=== PATIENT | male | born 1965 | race Caucasian/White ===

== ENCOUNTER 2019-03-15 12:22 | Outpatient (CLI) | payer MEDICAID, SELFPAY ==
[2019-03-15 14:52] LABS: ALT 120 U/L (12-78); AST 169 U/L (15-37); Albumin 3.7 g/dL (3.4-5.0); Alkaline Phosphatase 180 U/L (46-116); Anion Gap 13.1 mmol/L (3-11); BUN 7 mg/dL (7-18); Bilirubin, Total 3.7 mg/dL (0.2-1.0); CO2 24.9 mmol/L (21.0-32.0); CREATININE 0.85 mg/dL (0.70-1.30); Calcium 9.4 mg/dL (8.5-10.1); Chloride 100 mmol/L (98-107); Glucose 100 mg/dL (70-100); Potassium 3.7 mmol/L (3.5-5.1); Sodium 138 mmol/L (136-145)
== END 2019-03-15 12:42 ==
PROVIDERS: PCP Nurse Practitioner; Visit Provider Nurse Practitioner
DX: B19.20 Unspecified viral hepatitis C without hepatic coma (principal)
CPT/HCPCS: 36415; 80053

== ENCOUNTER 2019-12-21 20:16 | Inpatient (IN) | payer MEDICAID, SELFPAY ==
[2019-12-21] VITALS (14 sets, daily range): BP systolic 106–149; BP diastolic 66–79; PULSE 63–81; RESP 20; TEMP 37; O2SAT 93–100
--- NOTE | 2019-12-21 20:32 | ED.GENADUL_ITS ---
Discharge Plan Disposition Patient Disposition: [facility] INPATIENT Condition: Poor Discharge Details Chief Complaint: Nausea/Vomit/Diar Clinical Impression: Alcohol intoxication, Alcoholic, Abdominal pain, Multifocal lung consolidation Primary Care Provider: Cony Coleman ED Provider: Dillon Jimenez [place] Meds and New Rx's Prescriptions: No Action sildenafil [Viagra] 100 mg tablet 100 mg PO DAILY PRNRF: 0 vitamin B complex capsule 1 cap PO DAILY RF: 0 omega-3 fatty acids-fish oil [Fish Oil] 300-1,000 mg capsule 2 cap PO DAILY RF: 0 omeprazole 40 MG capsule,delayed release(DR/EC) 40 mg PO DAILY Qty: 30 RF: 3 Medical Decision Making Patient with upper abdominal pain, vomiting and cough as best I can tell. He is agitated but I think it is a coping mechanism. He does have alcohol on board. He is not truly suicidal or homicidal and for the most part is redirectable. IV has been established. Fluids, Phenergan, Ativan, Pepcid all ordered. EKG, CT scan and laboratory studies sent. 21:45 - Still complaining of pain, given morphine. Labs for the most part unremarkable. White count minimally elevated to 11.4. Hemoglobin normal. Platelets a little low at 114. Potassium a little low at 3.4 as is magnesium at 1.7. Minimal anion gap with a lactic acid of 2.2. Lipase is normal. Liver functions are little elevated with a total bilirubin of 2.6, AST 161, ALT 67, alk phos 202. Again patient is alcoholic and has history of hepatitis C. First troponin negative. Lipase normal. Urine negative. Urine drug screen negative. Alcohol level 400. EKG with short IL otherwise unremarkable. CT scan chest obtained, results pending. 23:45 -patient is now sleeping and occasionally desaturates but is arousable to verbal stimuli. CT scan shows evidence of emphysema as well as bibasilar consolidation in both lower lobes as well as the right upper lobe consider atelectasis versus pneumonia. CT of abdomen shows dilatation of the common bile duct and a right inguinal hernia otherwise unremarkable. Patient without travel or known COVID exposure but is not self isolating and has been traveling in [facility] including [place]. Since COVID is now community based must consider. Will also need flu swab. Will treat with antibiotics for aspiration/community acquired. Discussed with hospitalist at length. Will also need to watch closely for alcohol withdrawal. Patient will be admitted to the respiratory care unit. Lab Data Lab results reviewed: Yes I reviewed the patient's lab results. ECG Data Attestation: I personally reviewed and interpreted this ECG (s) as follows: Prior ECG tracings: not available for review Interpretation: Sinus rhythm at 65 with very short IL. No delta wave. Normal axis. No ST changes. HPI General Mode of arrival: EMS . Date/Time Provider Initiated Documentation: 12/21/19 20:34 . Information obtained by: patient, EMS and RN notes reviewed . HPI Narrative: Patient presents to ED by ambulance with unclear complaints initially. Ultimately, determined that he is having upper abdominal pain with vomiting. C annot get a clear timeline. He is somewhat agitated but I am able to redirect him relatively easily. He has been aggressive verbally but I think it is way of coping. He does not truly endorse being suicidal or homicidal. He does have a cough but is unclear whether this is chronic or acute as he is a heavy smoker. He is also a heavy drinker. Very difficult to get a linear history from him. Related Data Home Medications Medication Instructions Recorded Confirmed omeprazole 40 mg PO DAILY #30 tab-cap 12/18/16 03/10/19 omega-3 fatty acids-fish oil 300 2 cap PO DAILY 03/07/19 03/10/19 mg-1,000 mg capsule sildenafil 100 mg tablet 100 mg PO DAILY PRN 03/07/19 03/10/19 vitamin B complex 1 cap PO DAILY 03/07/19 03/10/19 Allergies Allergy/AdvReac Type Severity Reaction Status Date / Time No Known Allergies Allergy Unverified 03/10/19 11:21 Review of Systems Unobtainable due to mental status [facility] Medical History Alcoholic (Chronic) Erectile dysfunction (Chronic) Hepatitis C (Chronic) Hx of drug abuse (Chronic) Left inguinal hernia (Chronic) Right inguinal hernia (Chronic) Surgical History Repair of inguinal hernia (Chronic) left 1996 Social History Smoking/Tobacco Use Status: Current-Occasional Tobacco Type: cigarettes Alcohol Intake: current Alcohol Intake frequency: 3 or more drinks per day Alcohol type: hard liquor Drug use: Never Do you feel safe at home: Yes Exam Narrative Exam Narrative: Vitals: Afebrile. Normal vitals and normal room air pulse ox. Const: WDWN male somewhat agitated but ambulatory. HEENT: NC/AT. Normal facial exam. Eyes: Normal conjunctiva and sclera. Neck: Supple. Trachea midline. Lungs: Normal respiratory effort. Lungs are clear. There is no wheezing/rhonchi. Cor: RRR without murmur/gallop. Good radial pulses. GI: Soft. NT/ND. No guarding or rebound. Neuro: A+O x 3. Normal speech, mentation, gait a little unsteady. Cranial nerves II - XII grossly intact. No gross motor or sensory deficit. Ext: No C/C/E. Skin: Warm and dry without rash.
[2019-12-21 20:39] LABS: Bilirubin Negative (Negative); Blood Negative (Negative); Clarity Clear (Clear); Glucose Negative (Negative); Ketones Negative (Negative); Leukocyte Esterase Negative (Negative); Nitrite Negative (Negative); Urobilinogen >=8.0 EU/dL (Up TO 0.2)
[2019-12-21 21:01] LABS: Lactate 2.2 mmol/L (0.6-1.4)
[2019-12-21] MEDS: LORazepam 2 MG/ML VIAL 1 MG IVP (21:02)
[2019-12-21 21:10] LABS: *AMPHETAMINES SCREEN URINE Negative (Negative); *BARBITURATES SCREEN URINE Negative (Negative); *BENZODIAZEPINES SCREEN URINE Negative (Negative); Cannabinoids THC Negative (Negative); Cocaine Screen,Urine Negative (Negative); METHADONE URINE SCREEN Negative (Negative); OPIATES URINE SCREEN Negative (Negative)
[2019-12-21] MEDS: Lactated Ringers 1,000 ML 1000 ML IV (21:10)
[2019-12-21] MEDS: FAMOTIDINE 20 MG/50 ML BAG 100 MG IVPB (21:10)
[2019-12-21 21:11] LABS: Abs Immature Grans 0.01 k/cumm (0.0-0.09); Absolute Basophil Count 0.03 k/cumm (0.0-0.2); Absolute Eosinophil Count 0.06 k/cumm (0.0-0.7); Absolute Monocyte Count 0.77 k/cumm (0.11-0.7); Absolute Neutrophil Count 5.95 k/cumm (1.2-6.7); Basophils % 0.3; Eosinophils % 0.5; HGB 14.4 g/dL (13.5-17.5); Immature Grans % 0.1 %; Lymphocytes % 40.3; Mean Corp. HGB Concentration 34.3 g/dL (32.0-36.0); Mean Corpuscular Hemoglobin 34.2 pg (27.0-33.0); Mean Corpuscular Volume 99.8 fL (80-95); Mean Platelet Volume 10.6 fL (8.0-11.0); Monocytes % 6.7; Neutrophils % 52.1; Platelet Count 114 x1000/uL (130-400); RBC 4.21 m/cumm (4.50-6.00); RBC Distribution Width 14.7 % (11.8-14.1); White Blood Cell Count 11.42 k/cumm (4.4-10.8)
[2019-12-21 21:12] LABS: Tricyclic Antidepressants Negative (Negative)
[2019-12-21 21:24] LABS: ETHANOL BLOOD 399.6 mg/dL (<3)
[2019-12-21 21:26] LABS: ALT 67 U/L (16-63); AST 161 U/L (15-37); Albumin 3.4 g/dL (3.4-5.0); Alkaline Phosphatase 202 U/L (46-116); Anion Gap 12.4 mmol/L (3-11); BUN 6 mg/dL (7-18); Bilirubin, Total 2.6 mg/dL (0.2-1.0); CO2 23.6 mmol/L (21.0-32.0); Calcium 8.2 mg/dL (8.5-10.1); Chloride 108 mmol/L (98-107); Glucose 114 mg/dL (74-106); Lipase 240 U/L (73-393); Magnesium 1.7 mg/dL (1.8-2.4); Potassium 3.4 mmol/L (3.5-5.1); Sodium 144 mmol/L (136-145); Total Protein 8.2 g/dL (6.4-8.2)
--- NOTE | 2019-12-21 21:28 | NUR.NOTE ---
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 Have attempted to place 3 different times. Pt became agitated and states I don't need that fucking thing on.!
[2019-12-21 21:29] LABS: Troponin I < 0.05 ng/Ml (<0.06)
--- NOTE | 2019-12-21 21:44 | NUR.NOTE ---
Nursing Note: Pt behavior remains very volatile. Goes from begin quiet and calm to verbally abusive without warning.
[2019-12-21] MEDS: Omnipaque 350 MG/ML 100 ML BTL IJ (21:45)
--- NOTE | 2019-12-21 21:45 | DI.CT_ITS ---
EXAM: CT CHEST/ABD/PEL W CLINICAL HISTORY: cough, chest pain, upper abdominal pain COMPARISON: ABD PELVIS WITH CONTRAST from 12/16/2016 FINDINGS: CT examination of the chest, abdomen, and pelvis was performed with intravenous infusion of 100 cc of Omnipaque 350. There is marked centrilobular and subpleural pulmonary emphysema, most prominent in lung apices. There is mildly increased radiodensity of dependent lung bilaterally, the findings are consistent with dependent atelectasis. Infectious process not excluded. Calcified pulmonary granulo ma noted in the right posteriorly. Tracheobronchial tree appears intact. No mediastinal or hilar ad enopathy. No gross evidence of pulmonary embolic disease or thoracic aortic abnormality. No pleural effusion or pneumothorax. Liver appears mildly enlarged and has a probably nodular contour suggestive of cirrhosis. Multiple s plenic calcified granulomas noted. Gallbladder is distended, common bile duct about 9 millimeters wh ich is upper limits of normal to slightly enlarged, please correlate with lab values. Upper abdomina l varices noted. Adrenals and kidneys are unremarkable, no urinary tract calcification or obstructio n. Abdominal aorta and major branches appear intact. Small fat containing right inguinal hernia noted. Apparent prior left inguinal herniorrhaphy noted. No abdominal or pelvic adenopathy. No focal bowel pathology. Normal appearance of the appendix. Pa ncreas is unremarkable. No acute fracture seen. IMPRESSION: 1. Dependent atelectasis bilaterally, pneumonia not excluded. 2. Borderline measurement of common bile duct, please correlate clinically with any evidence of bili chey obstruction and with lab values. 3. Hepatomegaly and upper abdominal varices, question slight nodular hepatic contour, probable cirrh osis.
[2019-12-21] MEDS: Normal Saline - Diluent 50 ML VIAL IV (21:50)
[2019-12-21] MEDS: Normal Saline Flush 10 ML SYR IVP (21:51)
--- NOTE | 2019-12-21 22:32 | DI.VRAD_ITS ---
PROCEDURE INFORMATION: Exam: CT Chest With Contrast Exam date and time: 12/21/2019 8:38 PM Age: 54 years old Clinical indication: Generalized; Type not specified; Patient HX: Cough, chest pain, abdominal pain; Additional info: Patient intoxicated TECHNIQUE: Imaging protocol: Computed tomography of the chest with intravenous contrast. Radiation optimization: All CT scans at this facility use at least one of these dose optimization techniques: automated exposure control; mA and/or kV adjustment per patient size (includes targeted exams where dose is matched to clinical indication); or iterative reconstruction. Contrast material: OMNIPAQUE 350; Contrast volume: 100 ml; Contrast route: IV; COMPARISON: No relevant prior studies available. FINDINGS: Lungs: There is moderate centrilobular and paraseptal emphysema with upper lobe predominance. There is bibasilar consolidation involving the right and left lower lobes and posterior upper lobes consistent with atelectasis or pneumonia. Pleural space: No evidence of pleural effusion or pneumothorax. Heart: There is no pericardial effusion. Pulmonary arteries: The visualized central segments of the pulmonary arteries appear unremarkable. Aorta: There is no thoracic aortic aneurysm. No enlarged mediastinal lymph nodes or masses identified. Lymph nodes: In the right lung hilum, there is a subcentimeter calcified lymph node. Bones/joints: The spine demonstrates mild degenerative changes at multiple levels. Soft tissues: Unremarkable. IMPRESSION: 1. Moderate centrilobular and paraseptal emphysema with upper lobe predominance. 2. Bilateral lower lobe and upper lobe dependent consolidation consistent with atelectasis or pneumonia. PROCEDURE INFORMATION: Exam: CT Abdomen And Pelvis With Contrast Exam date and time: 12/21/2019 8:38 PM Age: 54 years old Clinical indication: Generalized; Type not specified; Patient HX: Cough, chest pain, abdominal pain; Additional info: Patient intoxicated TECHNIQUE: Imaging protocol: Computed tomography of the abdomen and pelvis with intravenous contrast. Radiation optimization: All CT scans at this facility use at least one of these dose optimization techniques: automated exposure control; mA and/or kV adjustment per patient size (includes targeted exams where dose is matched to clinical indication); or iterative reconstruction. Contrast material: OMNIPAQUE 350; Contrast volume: 100 ml; Contrast route: IV; COMPARISON: No relevant prior studies available. FINDINGS: Mediastinum: There is a small hiatal hernia. Liver: Normal. No mass. Gallbladder and bile ducts: No gallstones identified. However, there is dilatation of the common bile duct to 9 mm. Pancreas: Normal. No ductal dilation. Spleen: The spleen is normal in size. Multiple punctate calcifications in the spleen are sequelae of old granulomatous disease. Adrenals: Normal. No mass. Kidneys and ureters: There is no hydronephrosis or hydroureter. No renal or ureteral calculi identified. Stomach and bowel: Mild diverticulosis is present in the distal colon. Appendix: The appendix is not identified. Intraperitoneal space: Unremarkable. No free air. No significant fluid collection. Vasculature: Unremarkable. No abdominal aortic aneurysm. Lymph nodes: Unremarkable. No enlarged lymph nodes. Bladder: The bladder shows normal contour. Reproductive: The prostate measures 4.8 cm in transverse diameter and contains central calcification. Bones/joints: The spine demonstrates mild degenerative changes at multiple levels. There is mild grade 1 degenerative anterolisthesis of L5 on S1. There is facet arthropathy at L5-S1. Soft tissues: There has been mesh repair of a left inguinal hernia without recurrence. There is a moderate-sized right inguinal hernia containing adipose tissue in soft tissues. IMPRESSION: 1. A small hiatal hernia. 2. Mild dilatation of the common bile duct of uncertain etiology. If this is of clinical concern, consider correlation with abdominal sonography and if indicated, MRCP. 3. Mild diverticulosis of the distal colon. 4. Hepatic steatosis. 5. A moderate-sized right inguinal hernia containing adipose tissue and soft tissues Dictated and Authenticated by: Eran Willams MD. Ordering:SULEMAN Carranza MD
--- NOTE | 2019-12-21 23:31 | W.PM.HP.N ---
Date of service: 12/21/19 Time of Service: 23:31 Assessment and Plan Assessment and plan (1) Community acquired pneumonia: Status: Acute Assessment and plan: bilateral lower lobe infiltrates on CT of chest; no known hx of exposure to COVID 19 however, patient intoxicated on arrival now sedated from benzodiazepines and unreliable historian; patient had told triage nurse that he had been in [place] and caught something. He is a smoker and has evidence of emphysema on CT. He was not hypoxic on arrival but with sedation has had hypoxemia into the 80's% and now requires supplemental oxygen. Given his unreliable history he will undergo influenza and COVID 19 testing and be hospitalized in respiratory isolation pending his COVID 19 testing. I agree w/ coverage w/ Unasyn and Doxycycline which should cover community aquired pathogens including atypicals and also cover for possible aspiration given that has been nauseated and vomiting. I suspect his abdominal pains are secondary to alcoholic gastritis. Qualifiers: Laterality: unspecified laterality Qualified Code(s): J18.9 - Pneumonia, unspecified organism (2) Alcohol intoxication: Status: Acute Assessment and plan: patient is currently intoxicated but will need monitoring for acute alcohol withdrawal and as such [facility] monitoring and protocol for treatment has been ordered. Qualifiers: Complication of substance-induced condition: uncomplicated Qualified Code(s): F10.920 - Alcohol use, unspecified with intoxication, uncomplicated (3) Abdominal pain: Status: Acute Assessment and plan: no evidence for pancreatitis or cholecystitis; most likely has alcoholic gastritis. Will treat w/ protonix and monitor. Will repeat labs including his CMP, lactate, CBC in the a.m. Will obtain an ultrasound of his abdomen in the morning because of the biliary ductal dilatation and elevated LFTs. However on CT scanning does not appear to be cholecystitis. I suspect his LFTs are chronically elevated from his HCV. Qualifiers: Abdominal location: generalized Qualified Code(s): R10.84 - Generalized abdominal pain (4) Lactic acidosis: Status: Acute Assessment and plan: probably secondary to his acute alcohol intoxication. will hydrate him overnight and repeat his labs in the a.m. History of Present Illness History of Present Illness Chief Complaint: nausea, abdominal pain, cough, agitation Narrative: 54-year-old male with history of alcoholism, hepatitis C viral infection was brought to the emergency department by EMS after complaints of nausea and vomiting and abdominal pain as well as a cough. Patient was very agitated on arrival pacing around the room and making threats. However after while he calm down and indicated that he just did not feel well and was seeking help. Patient was found to be intoxicated with a blood alcohol level of 400. Rest of the urine tox screen was negative for drugs of abuse. His laboratory studies showed an elevated blood lactate of 2.2 with an anion gap of 12.4 and a low potassium of 3.4. Magnesium was low at 1.7 as transaminases were modestly elevated. His troponin level was less than 0.05 and his lipase was normal at 240. He had a leukocytosis of 11,420. He underwent CT scanning of his chest abdomen pelvis which demonstrated bibasilar infiltrates as well as centrilobular and paraseptal emphysema CT of the abdomen pelvis showed a small hiatal hernia mildly dilated common bile duct mild diverticulosis of the distal colon and hepatic steatosis and a moderate sized right inguinal hernia as well as evidence of a previous mesh repair of a left inguinal hernia. Because the patient was intoxicated and could not give a clear history to the emergency department personnel patient was placed under suspicion as a person of interest for COVID-19. Studies were sent off for [facility] for COVID-19. Blood cultures were obtained and a nasal swab for influenza was obtained. Influenza was negative. Patient was started on IV Unasyn and doxycycline for community-acquired pneumonia. Unasyn rather than Rocephin was chosen because of concern that he could have had an aspiration event. Initially was not hypoxemic on admission but later developed some mild hypoxemia with saturation in the high 80s and he was placed on nasal cannula. Patient will be admitted to the hospital for parenteral antibiotics and bronchodilator MDIs while awaiting results of the COVID-19 test. Because of his history of alcoholism he will be monitor with [facility] protocol for potential alcohol withdrawal. He was medicated with morphine and Ativan in the emergency department is currently somnolent. Review of Systems Unobtainable due to mental status [facility] Medical History Alcoholic (Chronic) Erectile dysfunction (Chronic) Hepatitis C (Chronic) Hx of drug abuse (Chronic) Left inguinal hernia (Chronic) Right inguinal hernia (Chronic) Surgical History Repair of inguinal hernia (Chronic) left 1997 Social History Smoking/Tobacco Use Status: Current-Occasional Tobacco Type: cigarettes Alcohol Intake: current Alcohol Intake frequency: 3 or more drinks per day Alcohol type: hard liquor Drug use: Never Do you feel safe at home: Yes Meds Home Medications and Allergies Home Medications Medication Instructions Recorded Confirmed Type omeprazole 40 mg PO DAILY #30 tab-cap 12/18/16 03/10/19 History omega-3 fatty acids-fish oil 300 2 cap PO DAILY 03/07/19 03/10/19 History mg-1,000 mg capsule sildenafil 100 mg tablet 100 mg PO DAILY PRN 03/07/19 03/10/19 History vitamin B complex 1 cap PO DAILY 03/07/19 03/10/19 History Allergies Allergy/AdvReac Type Severity Reaction Status Date / Time No Known Allergies Allergy Unverified 03/10/19 11:21 Exam Narrative Exam Narrative: Middle-age male who is lying in the left lateral recovery position who is somnolent but arousable to tactile stimulation. HEENT is unremarkable. Neck is supple without JVD normal carotid pulses no thyromegaly is no cervical lymphadenopathy. Lungs reveal bibasilar rales no rhonchi or wheezes. Heart is regular rate and rhythm without murmur rub or gallop. Abdomen soft nontender with hypoactive bowel sounds no palpable masses. Lower extremities without peripheral cyanosis or edema no calf tenderness. Neurologic exam seems to be grossly intact. He moves all 4 extremities to tactile stimulation. He is not following commands. He has no facial asymmetry. Results Labs Result diagrams: 12/21/19 19:40 12/21/19 19:40 Labs: Laboratory Results - last 24 hr 12/21/19 12/21/19 12/21/19 19:40 19:40 19:40 WBC 11.42 H RBC 4.21 L Hgb 14.4 Hct 42.0 MCV 99.8 H MCH 34.2 H MCHC 34.3 RDW 14.7 H Plt Count 114 L MPV 10.6 Immature Gran % 0.1 Neutrophils % 52.1 Lymphocytes % 40.3 Monocytes % 6.7 Eosinophils % 0.5 Basophils % 0.3 Absolute Neutrophils 5.95 Absolute Lymphocytes 4.60 H Absolute Monocytes 0.77 H Absolute Eosinophils 0.06 Absolute Basophils 0.03 Sodium 144 Potassium 3.4 L Chloride 108 H Carbon Dioxide 23.6 Anion Gap 12.4 H BUN 6 L Creatinine 1.00 Estimated GFR/1.73 m2 >= 60.00 Glucose 114 H Lactate 2.2 H* Calcium 8.2 L Magnesium 1.7 L Total Bilirubin 2.6 H AST 161 H ALT 67 H Alkaline Phosphatase 202 H Troponin I < 0.05 Total Protein 8.2 Albumin 3.4 Lipase 240 Urine Color Urine Clarity Urine pH Ur Specific [place] Urine Protein Urine Ketones Urine Blood Urine Nitrite Urine Bilirubin Urine Urobilinogen Ur Leukocyte Esterase Urine Glucose Urine Opiates Screen Urine Methadone Screen Ur Barbiturates Screen Ur Tricyclics Screen Ur Amphetamines Screen U Benzodiazepines Scrn Urine Cocaine Screen Ur THC Screen Ethyl Alcohol 12/21/19 12/21/19 12/21/19 19:40 20:30 20:30 WBC RBC Hgb Hct MCV MCH MCHC RDW Plt Count MPV Immature Gran % Neutrophils % Lymphocytes % Monocytes % Eosinophils % Basophils % Absolute Neutrophils Absolute Lymphocytes Absolute Monocytes Absolute Eosinophils Absolute Basophils Sodium Potassium Chloride Carbon Dioxide Anion Gap BUN Creatinine Estimated GFR/1.73 m2 Glucose Lactate Calcium Magnesium Total Bilirubin AST ALT Alkaline Phosphatase Troponin I Total Protein Albumin Lipase Urine Color Yellow Urine Clarity Clear Urine pH 7.0 Ur Specific [place] 1.010 Urine Protein Negative Urine Ketones Negative Urine Blood Negative Urine Nitrite Negative Urine Bilirubin Negative Urine Urobilinogen >=8.0 Ur Leukocyte Esterase Negative Urine Glucose Negative Urine Opiates Screen Negative Urine Methadone Screen Negative Ur Barbiturates Screen Negative Ur Tricyclics Screen Negative Ur Amphetamines Screen Negative U Benzodiazepines Scrn Negative Urine Cocaine Screen Negative Ur THC Screen Negative Ethyl Alcohol 399.6 Last Vital Signs Temp 37.0 C 12/21/19 20:18 Pulse 75 12/21/19 22:01 Resp 20 12/21/19 20:18 BP 118/66 12/21/19 22:01 Pulse Ox 100 12/21/19 22:01
[2019-12-21] MEDS: DOXYCYCLINE 100 MG in Normal Saline 100 ML IVPB (23:50)
[2019-12-22] VITALS (33 sets, daily range): BP systolic 106–139; BP diastolic 55–81; PULSE 58–94; RESP 12–24; TEMP 36.2–37.3; O2SAT 90–98
[2019-12-22] MEDS: MAGNESIUM SULFATE 8.12 MEQ, MULTIVITAMIN 10 ML, THIAMINE 100 MG, FOLIC ACID 1 MG in Nor... 168.867 MG IV (00:13)
[2019-12-22 00:20] LABS: Troponin I < 0.05 ng/Ml (<0.06)
--- NOTE | 2019-12-22 00:26 | NUR.NOTE ---
Nursing Note: 12/21/2019 2300: Pt sats down to 87% on room air. Pt placed on 2 L per NC. Sats up to 95-96%
[2019-12-22] MEDS: AMPICILLIN/SULBACTAM 3 GM in Normal Saline 100 ML IVPB ×4 (00:55→20:13)
--- NOTE | 2019-12-22 01:51 | NUR.NOTE ---
Nursing Note: Pt continues to sleep. Waiting to transfer pt to floor. No c/o or requests at this time. Sats remain in mid 90's
[2019-12-22 01:55] LABS: Procalcitonin < 0.1 ng/mL
--- NOTE | 2019-12-22 03:46 | NUR.NOTE ---
Nursing Note: Clean gown and blankets on pt. Waiting call from Respiratory unit to take pt to room.
[2019-12-22 04:22] LABS: Troponin I < 0.05 ng/Ml (<0.06)
[2019-12-22 06:47] LABS: Lactate 1.6 mmol/L (0.6-1.4)
[2019-12-22 06:53] LABS: Abs Immature Grans 0.01 k/cumm (0.0-0.09); Absolute Basophil Count 0.03 k/cumm (0.0-0.2); Absolute Eosinophil Count 0.07 k/cumm (0.0-0.7); Absolute Lymphocyte Count 2.56 k/cumm (1.2-3.4); Absolute Monocyte Count 0.48 k/cumm (0.11-0.7); Basophils % 0.5; Eosinophils % 1.1; HCT 38.3 % (40.0-50.0); HGB 13.1 g/dL (13.5-17.5); Immature Grans % 0.2 %; Mean Corp. HGB Concentration 34.2 g/dL (32.0-36.0); Mean Corpuscular Hemoglobin 34.8 pg (27.0-33.0); Mean Corpuscular Volume 101.9 fL (80-95); Mean Platelet Volume 10.9 fL (8.0-11.0); Monocytes % 7.7; Neutrophils % 49.5; RBC 3.76 m/cumm (4.50-6.00); RBC Distribution Width 14.7 % (11.8-14.1)
[2019-12-22 06:59] LABS: INR 1.4 (0.9-1.1); Prothrombin Time 14.1 sec (9.3-11.0)
[2019-12-22 07:01] LABS: ETHANOL BLOOD 226.1 mg/dL (<3)
[2019-12-22 07:03] LABS: PHOSPHORUS 3.7 mg/dL (2.6-4.7)
[2019-12-22 07:12] LABS: ALT 57 U/L (16-63); AST 135 U/L (15-37); Albumin 2.7 g/dL (3.4-5.0); Alkaline Phosphatase 158 U/L (46-116); Anion Gap 9.9 mmol/L (3-11); BUN 5 mg/dL (7-18); Bilirubin, Total 2.7 mg/dL (0.2-1.0); CO2 25.1 mmol/L (21.0-32.0); CREATININE 0.72 mg/dL (0.70-1.30); Calcium 7.3 mg/dL (8.5-10.1); Chloride 111 mmol/L (98-107); Glucose 87 mg/dL (74-106); Magnesium 1.6 mg/dL (1.8-2.4); Potassium 3.4 mmol/L (3.5-5.1); Sodium 146 mmol/L (136-145); Total Protein 6.9 g/dL (6.4-8.2); Troponin I < 0.05 ng/Ml (<0.06)
[2019-12-22] MEDS: Pantoprazole 40 MG VIAL IVP (07:34)
[2019-12-22 08:03] LABS: Absolute Neutrophil Count 3.09 k/cumm (1.2-6.7); Platelet Count 82 x1000/uL (130-400)
[2019-12-22] MEDS: Enoxaparin 40 MG/0.4 ML SYR SC (08:52)
[2019-12-22] MEDS: Potassium Chloride 20 MEQ TABCR 40 MEQ PO (08:53)
[2019-12-22] MEDS: Multivitamin TAB 1 TAB PO (08:53)
[2019-12-22] MEDS: Folic Acid 1 MG TAB PO (08:54)
[2019-12-22] MEDS: Thiamine 100 MG TAB PO (08:55)
[2019-12-22] MEDS: MAGNESIUM SULFATE 4 GM/100 ML BAG IVPB (08:55)
[2019-12-22] MEDS: DOXYCYCLINE 100 MG in Normal Saline 100 ML IVPB ×2 (10:14→22:21)
[2019-12-22 10:41] LABS: Bilirubin Negative (Negative); Blood Negative (Negative); Clarity Clear (Clear); Glucose Negative (Negative); Ketones Negative (Negative); Leukocyte Esterase Trace (Negative); Nitrite Negative (Negative); Urobilinogen >=8.0 EU/dL (Up TO 0.2); pH 6.5 (5-8)
[2019-12-22] MEDS: Ipratropium/Albuterol 4 GM 120 PUFF INH IH ×3 (11:02→20:14)
[2019-12-22 11:05] LABS: Bacteria Rare HPF (Negative); Epithelial Cells Few HPF (Negative); RBC 0-2 HPF (0-2)
[2019-12-22 11:06] LABS: C & S Indicated? Yes; Casts Negative LPF (Negative); Crystals Negative HPF (Negative); Mucus Moderate (Negative)
[2019-12-22] MEDS: LORazepam 1 MG TAB PO/SL ×2 (11:34→22:24)
--- NOTE | 2019-12-22 14:31 | PHA.ADMREV ---
Pharmacy Clinical Review - Admission Clinical Review (Last Reviewed 12/21/19 @ 20:34 by Dillon Jimenez MD) Multifocal lung consolidation (Acute) Lactic acidosis (Acute) Abdominal pain (Acute) Alcohol intoxication (Acute) Community acquired pneumonia (Acute) No Known Allergies Allergy (Unverified 12/22/19 03:13) Height 6 ft 1 in Weight 84.9 kg - Renal Dosing Renal Dosing: BUN 5 mg/dL (7-18) L 12/22/19 06:31 Creatinine 0.72 mg/dL (0.70-1.30) 12/22/19 06:31 Medications needing adjustments: N/A (Crcl ~116 mL/min current meds okay) - Anticoagulation Anticoagulation: Hgb 13.1 g/dL (13.5-17.5) L 12/22/19 06:31 Hct 38.3 % (40.0-50.0) L 12/22/19 06:31 Plt Count 82 x1000/uL (130-400) L 12/22/19 06:31 INR 1.4 (0.9-1.1) H 12/22/19 06:31 Creatinine 0.72 mg/dL (0.70-1.30) 12/22/19 06:31 DVT Prohphylaxis: Reviewed Therapeutic Anticoagulation: N/A - Opiate Usage Evaluate Pain Scale/Pains Meds: Reviewed Scheduled Bowel Reg ordered if on Opiates?: No (has PRN meds ordered) - Relevant Labs Sodium 146 mmol/L (136-145) H 12/22/19 06:31 Potassium 3.4 mmol/L (3.5-5.1) L 12/22/19 06:31 Chloride 111 mmol/L (98-107) H 12/22/19 06:31 Phosphorus 3.7 mg/dL (2.6-4.7) 12/22/19 06:31 Magnesium 1.6 mg/dL (1.8-2.4) L 12/22/19 06:31 Electrolytes, C-Reactive P, ESR: Reviewed (potassium and mag replacement have been given) - Antimicrobial Stewardship Antibiotic appropriateness: Reviewed Surgical Abx d/c within 24 hr: N/A Culture review/Resistance: Reviewed (blood, urine, and sputum cultures pending; rapid flu negative) - DM Control DM Control: Glucose 87 mg/dL (74-106) 12/22/19 06:31 Insulin Dosing: N/A - Heart Failure/MN Heart Failure/MN: Troponin I < 0.05 ng/Ml (<0.06) 12/22/19 06:31 EF%, VALERY's, B-Blockers, Diuretics: N/A - BP Control BP Control: Blood Pressure 139/71 Blood Pressure 106/77 Blood Pressure 123/71 Blood Pressure 107/65 If elevated: N/A - QTc Review If Elevated: N/A (QTc 437) - IV to PO Switch IV Medications: N/A - Home Meds Home Med List reviewed: Reviewed (home med list does not look like its been updated yet) Relevent Home Meds Not ordered & why?: omega-3 fatty acids, omeprazole(has pantoprazole ordered), sildenafil(PRN), vitamin B complex - Current meds Current Medication Order Review: Reviewed - Comments Comments/Follow Ups: TB test done today. Watch for micro and serology results. Watch potassium and mag levels. Make sure to keep doxy and unasyn doses by at least 2 hours.
--- NOTE | 2019-12-22 16:45 | W.PM.PROGNOT ---
Date of Service Date of service: 12/22/19 Time of Service: 16:46 Assessment and Plan Assessment and plan (1) Community acquired pneumonia: Status: Acute Assessment and plan: His white blood cell count is markedly improved. He is not having any further fevers. He has a small oxygen requirement. Overall respiratory status appears stable. Continue Unasyn and doxycycline. Qualifiers: Laterality: unspecified laterality Qualified Code(s): J18.9 - Pneumonia, unspecified organism (2) Abdominal pain: Status: Acute Assessment and plan: No abdominal pain to exam today. He is quite sedated from the benzodiazepines. There is been no nausea or vomiting. Qualifiers: Abdominal location: generalized Qualified Code(s): R10.84 - Generalized abdominal pain (3) Alcoholic: Status: Chronic Assessment and plan: He is on CIWA scoring. He is medicated both with lorazepam and oxazepam. He appears to be stable at this point. (4) Coronavirus infection, unspecified: Status: Acute Assessment and plan: He is being ruled out for coronavirus infection. He has an unknown exposure history. Because of his presentation with respiratory symptoms and fever we are awaiting his coronavirus testing. Continue negative pressure monitoring. He remains on precautions. Subjective Subjective Interval history since last seen: 54-year-old man admitted to negative pressure ventilation room for rule out COVID-19. He arrived to the emergency room intoxicated with a vague history of being in [place] and catching something. He is now being treated for bilateral pneumonia and alcohol withdrawal syndrome. He is being medicated according to CIWA score. He is largely sedated and resting comfortably. He is oxygenating well on 1.5 L. He offers no new complaints. Exam Narrative Exam Narrative: On exam he is lying on the right lateral position. He sleeping with somewhat sonorous breath sounds. His lung sounds are generally clear on the right and left (limited by PA ND noise), heart sounds were muffled. No abdominal tenderness to palpation. Lower extremities no significant edema. Objective Objective Clinical Data: Abnormal lab results 12/21/19 12/21/19 12/21/19 Range/Units 19:40 19:40 19:40 WBC 11.42 H (4.4-10.8) k/cumm RBC 4.21 L (4.50-6.00) m/cumm Hgb (13.5-17.5) g/dL Hct (40.0-50.0) % MCV 99.8 H (80-95) fL MCH 34.2 H (27.0-33.0) pg RDW 14.7 H (11.8-14.1) % Plt Count 114 L (130-400) x1000/uL Absolute Lymphocytes 4.60 H (1.2-3.4) k/cumm Absolute Monocytes 0.77 H (0.11-0.7) k/cumm PT (9.3-11.0) sec INR (0.9-1.1) Sodium (136-145) mmol/L Potassium 3.4 L (3.5-5.1) mmol/L Chloride 108 H (98-107) mmol/L Anion Gap 12.4 H (3-11) mmol/L BUN 6 L (7-18) mg/dL Glucose 114 H (74-106) mg/dL Lactate 2.2 H* (0.6-1.4) mmol/L Calcium 8.2 L (8.5-10.1) mg/dL Magnesium 1.7 L (1.8-2.4) mg/dL Total Bilirubin 2.6 H (0.2-1.0) mg/dL AST 161 H (15-37) U/L ALT 67 H (16-63) U/L Alkaline Phosphatase 202 H (46-116) U/L Albumin (3.4-5.0) g/dL Ur Leukocyte Esterase (Negative) 12/22/19 12/22/19 12/22/19 Range/Units 06:31 06:31 06:31 WBC (4.4-10.8) k/cumm RBC 3.76 L (4.50-6.00) m/cumm Hgb 13.1 L (13.5-17.5) g/dL Hct 38.3 L (40.0-50.0) % MCV 101.9 H (80-95) fL MCH 34.8 H (27.0-33.0) pg RDW 14.7 H (11.8-14.1) % Plt Count 82 L (130-400) x1000/uL Absolute Lymphocytes (1.2-3.4) k/cumm Absolute Monocytes (0.11-0.7) k/cumm PT (9.3-11.0) sec INR (0.9-1.1) Sodium 146 H (136-145) mmol/L Potassium 3.4 L (3.5-5.1) mmol/L Chloride 111 H (98-107) mmol/L Anion Gap (3-11) mmol/L BUN 5 L (7-18) mg/dL Glucose (74-106) mg/dL Lactate 1.6 H (0.6-1.4) mmol/L Calcium 7.3 L (8.5-10.1) mg/dL Magnesium 1.6 L (1.8-2.4) mg/dL Total Bilirubin 2.7 H (0.2-1.0) mg/dL AST 135 H (15-37) U/L ALT (16-63) U/L Alkaline Phosphatase 158 H (46-116) U/L Albumin 2.7 L (3.4-5.0) g/dL Ur Leukocyte Esterase (Negative) 12/22/19 12/22/19 Range/Units 06:31 08:00 WBC (4.4-10.8) k/cumm RBC (4.50-6.00) m/cumm Hgb (13.5-17.5) g/dL Hct (40.0-50.0) % MCV (80-95) fL MCH (27.0-33.0) pg RDW (11.8-14.1) % Plt Count (130-400) x1000/uL Absolute Lymphocytes (1.2-3.4) k/cumm Absolute Monocytes (0.11-0.7) k/cumm PT 14.1 H (9.3-11.0) sec INR 1.4 H (0.9-1.1) Sodium (136-145) mmol/L Potassium (3.5-5.1) mmol/L Chloride (98-107) mmol/L Anion Gap (3-11) mmol/L BUN (7-18) mg/dL Glucose (74-106) mg/dL Lactate (0.6-1.4) mmol/L Calcium (8.5-10.1) mg/dL Magnesium (1.8-2.4) mg/dL Total Bilirubin (0.2-1.0) mg/dL AST (15-37) U/L ALT (16-63) U/L Alkaline Phosphatase (46-116) U/L Albumin (3.4-5.0) g/dL Ur Leukocyte Esterase Trace H (Negative) Vital Signs Temperature 37 C 12/22/19 16:00 Temperature Source Temporal Artery Scan 12/22/19 16:00 Pulse 77 12/22/19 16:00 Pulse Rhythm Regular 12/22/19 16:22 Respiratory Rate 24 12/22/19 16:00 Respiratory Effort Non-Labored 12/22/19 16:22 Respiratory Depth Normal 12/22/19 16:22 Respiratory Pattern Normal 12/22/19 16:22 Blood Pressure 127/69 12/22/19 16:00 Blood Pressure Mean 82 12/22/19 03:01 Pulse Oximetry 96 12/22/19 16:00 Oxygen Delivery Method Nasal Cannula 12/22/19 16:00 Oxygen Flow Rate 1.5 12/22/19 16:00 Pain Level 0 12/22/19 16:00 Comment 12/22/19 14:34 Intake & Output 12/21/19 12/22/19 12/22/19 23:59 11:59 23:59 Intake Total 1101 / 1101 1233.2 / 2833.2 1600 / 2833.2 Output Total 700 / 1300 600 / 1300 Balance 1101 / 1101 533.2 / 1533.2 1000 / 1533.2 Weight 84.9 kg 84.9 kg Intake: IV 1101 / 1101 1233.2 / 2433.2 1200 / 2433.2 Oral 400 / 400 Output: Urine 700 / 1300 600 / 1300 Other: Urine Color Yellow Light Veronica Dark Veronica Urine Appearance Clear Clear Urine Odor Normal None Comment Pt voided independently using a urinal at the side of the bed. Voiding Methods Urinal Urinal Laboratory Results WBC 6.25 k/cumm (4.4-10.8) D 12/22/19 06:31 RBC 3.76 m/cumm (4.50-6.00) L 12/22/19 06:31 Hgb 13.1 g/dL (13.5-17.5) L 12/22/19 06:31 Hct 38.3 % (40.0-50.0) L 12/22/19 06:31 MCV 101.9 fL (80-95) H 12/22/19 06:31 MCH 34.8 pg (27.0-33.0) H 12/22/19 06:31 MCHC 34.2 g/dL (32.0-36.0) 12/22/19 06:31 RDW 14.7 % (11.8-14.1) H 12/22/19 06:31 Plt Count 82 x1000/uL (130-400) L 12/22/19 06:31 MPV 10.9 fL (8.0-11.0) 12/22/19 06:31 Immature Gran % 0.2 % 12/22/19 06:31 Neutrophils % 49.5 12/22/19 06:31 Lymphocytes % 41.0 12/22/19 06:31 Monocytes % 7.7 12/22/19 06:31 Eosinophils % 1.1 12/22/19 06:31 Basophils % 0.5 12/22/19 06:31 Absolute Neutrophils 3.09 k/cumm (1.2-6.7) 12/22/19 06:31 Absolute Lymphocytes 2.56 k/cumm (1.2-3.4) 12/22/19 06:31 Absolute Monocytes 0.48 k/cumm (0.11-0.7) 12/22/19 06:31 Absolute Eosinophils 0.07 k/cumm (0.0-0.7) 12/22/19 06:31 Absolute Basophils 0.03 k/cumm (0.0-0.2) 12/22/19 06:31 PT 14.1 sec (9.3-11.0) H 12/22/19 06:31 INR 1.4 (0.9-1.1) H 12/22/19 06:31 Sodium 146 mmol/L (136-145) H 12/22/19 06:31 Potassium 3.4 mmol/L (3.5-5.1) L 12/22/19 06:31 Chloride 111 mmol/L (98-107) H 12/22/19 06:31 Carbon Dioxide 25.1 mmol/L (21.0-32.0) 12/22/19 06:31 Anion Gap 9.9 mmol/L (3-11) 12/22/19 06:31 BUN 5 mg/dL (7-18) L 12/22/19 06:31 Creatinine 0.72 mg/dL (0.70-1.30) 12/22/19 06:31 Estimated GFR/1.73 m2 >= 60.00 (mL/min/1.73m2) 12/22/19 06:31 Glucose 87 mg/dL (74-106) 12/22/19 06:31 Lactate 1.6 mmol/L (0.6-1.4) H 12/22/19 06:31 Calcium 7.3 mg/dL (8.5-10.1) L 12/22/19 06:31 Phosphorus 3.7 mg/dL (2.6-4.7) 12/22/19 06:31 Magnesium 1.6 mg/dL (1.8-2.4) L 12/22/19 06:31 Total Bilirubin 2.7 mg/dL (0.2-1.0) H 12/22/19 06:31 AST 135 U/L (15-37) H 12/22/19 06:31 ALT 57 U/L (16-63) 12/22/19 06:31 Alkaline Phosphatase 158 U/L (46-116) H 12/22/19 06:31 Troponin I < 0.05 ng/Ml (<0.06) 12/22/19 06:31 Total Protein 6.9 g/dL (6.4-8.2) 12/22/19 06:31 Albumin 2.7 g/dL (3.4-5.0) L 12/22/19 06:31 Lipase 240 U/L (73-393) 12/21/19 19:40 Procalcitonin < 0.1 ng/mL 12/21/19 23:30 Urine Color Dark yellow (Yellow) 12/22/19 08:00 Urine Clarity Clear (Clear) 12/22/19 08:00 Urine pH 6.5 (5-8) 12/22/19 08:00 Ur Specific [place] 1.020 (1.005-1.025) 12/22/19 08:00 Urine Protein Negative mg/dL (Negative) 12/22/19 08:00 Urine Ketones Negative mg/dL (Negative) 12/22/19 08:00 Urine Blood Negative (Negative) 12/22/19 08:00 Urine Nitrite Negative (Negative) 12/22/19 08:00 Urine Bilirubin Negative (Negative) 12/22/19 08:00 Urine Urobilinogen >=8.0 EU/dL (Up TO 0.2) 12/22/19 08:00 Ur Leukocyte Esterase Trace (Negative) H 12/22/19 08:00 Urine RBC 0-2 HPF (0-2) 12/22/19 08:00 Urine WBC 5-10 HPF (0-5) 12/22/19 08:00 Ur Epithelial Cells Few HPF (Negative) 12/22/19 08:00 Urine Crystals Negative HPF (Negative) 12/22/19 08:00 Urine Bacteria Rare HPF (Negative) 12/22/19 08:00 Urine Casts Negative LPF (Negative) 12/22/19 08:00 Urine Mucus Moderate (Negative) 12/22/19 08:00 Ur Culture Indicated? Yes 12/22/19 08:00 Urine Glucose Negative mg/dL (Negative) 12/22/19 08:00 Urine Opiates Screen Negative (Negative) 12/21/19 20:30 Urine Methadone Screen Negative (Negative) 12/21/19 20:30 Ur Barbiturates Screen Negative (Negative) 12/21/19 20:30 Ur Tricyclics Screen Negative (Negative) 12/21/19 20:30 Ur Amphetamines Screen Negative (Negative) 12/21/19 20:30 U Benzodiazepines Scrn Negative (Negative) 12/21/19 20:30 Urine Cocaine Screen Negative (Negative) 12/21/19 20:30 Ur THC Screen Negative (Negative) 12/21/19 20:30 Ethyl Alcohol 226.1 mg/dL (<3) 12/22/19 06:31
[2019-12-22 20:13] LABS: Legionella Ag Detection Urine Negative (Negative)
[2019-12-23] VITALS (15 sets, daily range): BP systolic 108–133; BP diastolic 57–76; PULSE 57–84; RESP 17–22; TEMP 35.4–39.7; O2SAT 93–97
[2019-12-23] MEDS: LORazepam 1 MG TAB PO/SL ×6 (02:02→22:26)
[2019-12-23] MEDS: AMPICILLIN/SULBACTAM 3 GM in Normal Saline 100 ML IVPB ×3 (02:04→16:26)
[2019-12-23 07:20] LABS: Absolute Basophil Count 0.01 k/cumm (0.0-0.2); Absolute Eosinophil Count 0.05 k/cumm (0.0-0.7); Absolute Lymphocyte Count 1.31 k/cumm (1.2-3.4); Absolute Monocyte Count 0.43 k/cumm (0.11-0.7); Absolute Neutrophil Count 2.22 k/cumm (1.2-6.7); Basophils % 0.2; Eosinophils % 1.2; HCT 37.7 % (40.0-50.0); HGB 12.7 g/dL (13.5-17.5); Lymphocytes % 32.6; Mean Corp. HGB Concentration 33.7 g/dL (32.0-36.0); Mean Corpuscular Hemoglobin 34.4 pg (27.0-33.0); Mean Corpuscular Volume 102.2 fL (80-95); Mean Platelet Volume 10.7 fL (8.0-11.0); Monocytes % 10.7; Neutrophils % 55.3; RBC 3.69 m/cumm (4.50-6.00); RBC Distribution Width 13.9 % (11.8-14.1); White Blood Cell Count 4.02 k/cumm (4.4-10.8)
[2019-12-23 07:31] LABS: Anion Gap 8.1 mmol/L (3-11); BUN 6 mg/dL (7-18); CO2 23.9 mmol/L (21.0-32.0); CREATININE 0.75 mg/dL (0.70-1.30); Calcium 7.5 mg/dL (8.5-10.1); Chloride 107 mmol/L (98-107); Glucose 103 mg/dL (74-106); Magnesium 1.6 mg/dL (1.8-2.4); Potassium 4.1 mmol/L (3.5-5.1); Sodium 139 mmol/L (136-145)
[2019-12-23 07:39] LABS: Platelet Count 52 x1000/uL (130-400)
[2019-12-23 07:40] LABS: Diff Comment PLT Morph Reviewed; Macrocytosis 2+
[2019-12-23] MEDS: Normal Saline Flush 10 ML SYR IVP ×3 (08:32→23:34)
[2019-12-23] MEDS: Enoxaparin 40 MG/0.4 ML SYR SC (08:33)
[2019-12-23] MEDS: Multivitamin TAB 1 TAB PO (08:33)
[2019-12-23] MEDS: Thiamine 100 MG TAB PO (08:33)
[2019-12-23] MEDS: Folic Acid 1 MG TAB PO (08:33)
[2019-12-23] MEDS: Pantoprazole 40 MG VIAL IVP (08:34)
[2019-12-23] MEDS: MAGNESIUM SULFATE 4 GM/100 ML BAG IVPB (08:46)
[2019-12-23] MEDS: Ipratropium/Albuterol 4 GM 120 PUFF INH IH ×4 (10:12→19:27)
[2019-12-23] MEDS: DOXYCYCLINE 100 MG in Normal Saline 100 ML IVPB (12:22)
[2019-12-23] MEDS: LORazepam 2 MG/ML VIAL 1 MG IVP (14:30)
--- NOTE | 2019-12-23 14:58 | NUR.NOTE ---
Nursing Note: 1355 12/23/19: Pt got up out of bed. He is starting to get up more frequently now. 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 Pt was CIWA'd at about 1410, which was early, but his disposition is changing. He agreed to sit on the bed. CC Ewelina Lara RN was notified who notified Bruna Heard NP. Bruna wanted to know what he was scoring for and this nurse reviewed the CIWA assessment via ISAMAR Murillo. She gave order for 1mg to be given IV and it was given. Pt settled for a little bit but got up again. This nurse again offered the urinal (which was offered before) and he was able to go this time. He still noted that he had to bounce. He did eventually get back into bed and settle in after TV was turned on at 1455.
[2019-12-23] MEDS: chlordiazePOXIDE 25 MG CAP PO ×2 (16:26→19:30)
[2019-12-24] VITALS (50 sets, daily range): BP systolic 97–152; BP diastolic 60–93; PULSE 58–106; RESP 13–31; TEMP 35.9–37.1; O2SAT 92–100
[2019-12-24] MEDS: LORazepam 2 MG/ML VIAL IVP ×31 (00:40→23:05)
[2019-12-24] MEDS: DOXYCYCLINE 100 MG in Normal Saline 100 ML IVPB ×2 (00:45→15:03)
--- NOTE | 2019-12-24 01:34 | NUR.NOTE ---
2 mg IVP Ativan given at 0030 end tidal CO2 monitor applied. O2 95% RR 17 P 68 EtCo2 30 0050 O2 94% RR 17 P 72 EtCO2 30 0110 Restraints applied 0111 O2 92% RR 18 P 69 EtCO2 27 0130 O2 95 RR 18 P 65 EtCO2 28 Continuing to monitor
--- NOTE | 2019-12-24 02:15 | W.PM.PROGNOT ---
Date of Service Date of service: 12/24/19 Time of Service: 02:15 Assessment and Plan Assessment and plan (1) Alcohol withdrawal delirium, acute, hyperactive: Status: Acute Assessment and plan: Alcohol withdrawal with agitation. Restraints required due to risk of self-harm and some transient aggressive behaviors towards nursing staff. Responsive to increased doses of benzodiazepine and presently calmer, suitably responsive to verbal stimulation although still quite confused/encephalopathic. No obvious source of discomfort that might be adding to his agitation. I have ordered in and out bladder catheterization to be sure urinary retention is not contributing. I do not know if there is any other underlying metabolic process that might be contributing to encephalopathy such as hepatic encephalopathy. Continue alcohol withdrawal scoring. Continue scheduled chlordiazepoxide and every 30 minute as needed IV lorazepam. Monitor SaO2, end-tidal CO2, level of agitation/sedation. I have added on an ammonia level for the morning lab draw. No other changes made to treatment plan at this time. If clinical course does not follow typical alcohol withdrawal pattern, consider neuro imaging. (2) Acquired pancytopenia: Status: Acute Assessment and plan: Probable marrow toxicity from alcohol abuse. I have added a CBC to the morning blood draw to monitor his counts. There has been a downward trend in his platelet count since admission. No active bleeding. Subjective Subjective Interval history since last seen: Called to see patient because of increased agitation requiring restraints. At approximately midnight he became more agitated, scoring up to 18 on alcohol withdrawal assessment with hallucinations (?). He was given 2 mg of IV lorazepam with transient response in terms of calmer. However, abrupt change within 20 to 30 minutes of that dose, fell out of bed, pacing, tried to void, difficult to redirect, then became somewhat aggressive towards nursing staff. Restraints were applied and additional 2 mg of IV lorazepam administered. Presently he is in bed, four-point soft restraints, sedated but awake. He will squeeze fingers on request. Verbal responses are unintelligible, mumbling. Nursing staff did not witness any loss of consciousness or seizures. Exam Narrative Exam Narrative: Awake but sedated jaundiced man in four-point restraints with spontaneous movement of all extremities noted. Most recent vitals with a temperature of 36.9 respiratory rate 17 pulse 65 blood pressure 152/89. Sinus rhythm on monitor. End-tidal CO2 29, SaO2 in the mid 90% range mostly room air, does not keep oxygen on. No bruising on his head or face. Sclera icteric. There is no spontaneous nystagmus. No JVD. Diminished breath sounds in the lower lung ramirez but I do not hear any crackles or wheeze. Regular heart rhythm without S3 or murmur. Active bowel sounds with no manifestation of discomfort with palpation anywhere although there is some occasional grimacing with suprapubic palpation. I do not detect bladder distention by palpation. He has a lipoma in the right hip area that is nontender. There is no pain with passive internal and external rotation and partial flexion of either hip. There is no bruising on the lower extremities. No swelling or effusion of the knees. He has good distal pulses. There is no ankle clonus. Symmetric log washer strength on request. No indication of discomfort with palpation over the chest wall or clavicles or shoulders. Objective Objective Clinical Data: Abnormal lab results 12/23/19 12/23/19 Range/Units 06:58 06:58 WBC 4.02 L D (4.4-10.8) k/cumm RBC 3.69 L (4.50-6.00) m/cumm Hgb 12.7 L (13.5-17.5) g/dL Hct 37.7 L (40.0-50.0) % MCV 102.2 H (80-95) fL MCH 34.4 H (27.0-33.0) pg Plt Count 52 L (130-400) x1000/uL BUN 6 L (7-18) mg/dL Calcium 7.5 L (8.5-10.1) mg/dL Magnesium 1.6 L (1.8-2.4) mg/dL Vital Signs Temperature 36.9 C 12/24/19 01:35 Temperature Source Temporal Artery Scan 12/24/19 01:35 Pulse 65 12/24/19 01:35 Pulse Rhythm Regular 12/23/19 20:21 Respiratory Rate 17 12/24/19 01:35 Respiratory Effort 12/24/19 01:35 Respiratory Depth Normal 12/23/19 17:08 Respiratory Pattern Normal 12/23/19 17:08 Blood Pressure 152/89 H 12/24/19 01:35 Blood Pressure Mean 82 12/22/19 03:01 Pulse Oximetry 93 L 12/23/19 23:26 Oxygen Delivery Method Room Air 12/23/19 23:26 Oxygen Flow Rate 0 12/23/19 23:26 Pain Level 0 12/23/19 18:33 Comment 12/23/19 20:10 Intake & Output 12/23/19 12/23/19 12/24/19 11:59 23:59 11:59 Intake Total 1450 / 2617.5 1167.5 / 2617.5 Output Total 600 / 2480 1880 / 2480 100 / 100 Balance 850 / 137.5 -712.5 / 137.5 -100 / -100 Intake: IV 1200 / 2367.5 1167.5 / 2367.5 Oral 250 / 250 Output: Urine 600 / 2480 1880 / 2480 100 / 100 Other: Urine Color [place] Light Veronica Light Veronica Urine Appearance Clear Clear Clear Urine Odor Normal Strong Comment in 3 voids of 200ml each. Dribbles after voids. Also inct. Also lg incontinence Voiding Methods Urinal Urinal Incontinent Laboratory Results WBC 4.02 k/cumm (4.4-10.8) L D 12/23/19 06:58 RBC 3.69 m/cumm (4.50-6.00) L 12/23/19 06:58 Hgb 12.7 g/dL (13.5-17.5) L 12/23/19 06:58 Hct 37.7 % (40.0-50.0) L 12/23/19 06:58 MCV 102.2 fL (80-95) H 12/23/19 06:58 MCH 34.4 pg (27.0-33.0) H 12/23/19 06:58 MCHC 33.7 g/dL (32.0-36.0) 12/23/19 06:58 RDW 13.9 % (11.8-14.1) 12/23/19 06:58 Plt Count 52 x1000/uL (130-400) L 12/23/19 06:58 MPV 10.7 fL (8.0-11.0) 12/23/19 06:58 Immature Gran % 0.0 % 12/23/19 06:58 Neutrophils % 55.3 12/23/19 06:58 Lymphocytes % 32.6 12/23/19 06:58 Monocytes % 10.7 12/23/19 06:58 Eosinophils % 1.2 12/23/19 06:58 Basophils % 0.2 12/23/19 06:58 Absolute Neutrophils 2.22 k/cumm (1.2-6.7) 12/23/19 06:58 Absolute Lymphocytes 1.31 k/cumm (1.2-3.4) 12/23/19 06:58 Absolute Monocytes 0.43 k/cumm (0.11-0.7) 12/23/19 06:58 Absolute Eosinophils 0.05 k/cumm (0.0-0.7) 12/23/19 06:58 Absolute Basophils 0.01 k/cumm (0.0-0.2) 12/23/19 06:58 Differential Comment Plt morph reviewed 12/23/19 06:58 RBC Morphology See below 12/23/19 06:58 Macrocytosis 2+ 12/23/19 06:58 PT 14.1 sec (9.3-11.0) H 12/22/19 06:31 INR 1.4 (0.9-1.1) H 12/22/19 06:31 Sodium 139 mmol/L (136-145) 12/23/19 06:58 Potassium 4.1 mmol/L (3.5-5.1) D 12/23/19 06:58 Chloride 107 mmol/L (98-107) 12/23/19 06:58 Carbon Dioxide 23.9 mmol/L (21.0-32.0) 12/23/19 06:58 Anion Gap 8.1 mmol/L (3-11) 12/23/19 06:58 BUN 6 mg/dL (7-18) L 12/23/19 06:58 Creatinine 0.75 mg/dL (0.70-1.30) 12/23/19 06:58 Estimated GFR/1.73 m2 >= 60.00 (mL/min/1.73m2) 12/23/19 06:58 Glucose 103 mg/dL (74-106) 12/23/19 06:58 Lactate 1.6 mmol/L (0.6-1.4) H 12/22/19 06:31 Calcium 7.5 mg/dL (8.5-10.1) L 12/23/19 06:58 Phosphorus 3.7 mg/dL (2.6-4.7) 12/22/19 06:31 Magnesium 1.6 mg/dL (1.8-2.4) L 12/23/19 06:58 Total Bilirubin 2.7 mg/dL (0.2-1.0) H 12/22/19 06:31 AST 135 U/L (15-37) H 12/22/19 06:31 ALT 57 U/L (16-63) 12/22/19 06:31 Alkaline Phosphatase 158 U/L (46-116) H 12/22/19 06:31 Troponin I < 0.05 ng/Ml (<0.06) 12/22/19 06:31 Total Protein 6.9 g/dL (6.4-8.2) 12/22/19 06:31 Albumin 2.7 g/dL (3.4-5.0) L 12/22/19 06:31 Lipase 240 U/L (73-393) 12/21/19 19:40 Procalcitonin < 0.1 ng/mL 12/21/19 23:30 Urine Color Dark yellow (Yellow) 12/22/19 08:00 Urine Clarity Clear (Clear) 12/22/19 08:00 Urine pH 6.5 (5-8) 12/22/19 08:00 Ur Specific [place] 1.020 (1.005-1.025) 12/22/19 08:00 Urine Protein Negative mg/dL (Negative) 12/22/19 08:00 Urine Ketones Negative mg/dL (Negative) 12/22/19 08:00 Urine Blood Negative (Negative) 12/22/19 08:00 Urine Nitrite Negative (Negative) 12/22/19 08:00 Urine Bilirubin Negative (Negative) 12/22/19 08:00 Urine Urobilinogen >=8.0 EU/dL (Up TO 0.2) 12/22/19 08:00 Ur Leukocyte Esterase Trace (Negative) H 12/22/19 08:00 Urine RBC 0-2 HPF (0-2) 12/22/19 08:00 Urine WBC 5-10 HPF (0-5) 12/22/19 08:00 Ur Epithelial Cells Few HPF (Negative) 12/22/19 08:00 Urine Crystals Negative HPF (Negative) 12/22/19 08:00 Urine Bacteria Rare HPF (Negative) 12/22/19 08:00 Urine Casts Negative LPF (Negative) 12/22/19 08:00 Urine Mucus Moderate (Negative) 12/22/19 08:00 Ur Culture Indicated? Yes 12/22/19 08:00 Urine Glucose Negative mg/dL (Negative) 12/22/19 08:00 Urine Opiates Screen Negative (Negative) 12/21/19 20:30 Urine Methadone Screen Negative (Negative) 12/21/19 20:30 Ur Barbiturates Screen Negative (Negative) 12/21/19 20:30 Ur Tricyclics Screen Negative (Negative) 12/21/19 20:30 Ur Amphetamines Screen Negative (Negative) 12/21/19 20:30 U Benzodiazepines Scrn Negative (Negative) 12/21/19 20:30 Urine Cocaine Screen Negative (Negative) 12/21/19 20:30 Ur THC Screen Negative (Negative) 12/21/19 20:30 Ethyl Alcohol 226.1 mg/dL (<3) 12/22/19 06:31
[2019-12-24] MEDS: LORazepam 2 MG/ML VIAL 1 MG IVP ×14 (02:18→13:47)
[2019-12-24] MEDS: Normal Saline Flush 10 ML SYR IVP ×6 (08:06→23:33)
[2019-12-24] MEDS: chlordiazePOXIDE 25 MG CAP PO (09:01)
[2019-12-24] MEDS: Pantoprazole 40 MG VIAL IVP (10:39)
--- NOTE | 2019-12-24 10:39 | NUR.NOTE ---
Nursing Note: 0730: this RN has conversation with Belia in pharmacy regarding waste of ativan; pt receiving 1mg ativan q30 minutes at this time. RN concerned with high waste of medication. per pharmacy Belia, pull 2 (1) mg doses of ativan from each vial. label syringe and keep in patient's cassette in med drawer to not waste high amounts of medication. this scribe pulled ativan with Chidi Elliott RN as a witness to 2 syringes of 1 mg ativan; each syringe contained 1mg of ativan. one syringe was brought to patient's room (228) as he is under airborne precautions for Covid-19 rule out, and left in the entry way for the primary RN, Cortney Martin who was in the room with the patient. the second syringe containing the 1 mg of ativan was brought to primary RN, Cortney Martin approximately 30 minutes later after it was removed from patient cassette in med cart. please see documentation for said administrations. this scribe had not wasted ativan in the pyxis as a full vial had been pulled per recommendation of pharmacy to decrease waste of frequently used medication. there may be a medication discrepency in the pyxis. this RN called Belia in pharmacy who advised RN to document under waste and if a discrepency is created, she would come and help resolve it.
[2019-12-24 10:47] LABS: Anion Gap 11.5 mmol/L (3-11); BUN 6 mg/dL (7-18); Bilirubin, Total 8.6 mg/dL (0.2-1.0); CO2 24.5 mmol/L (21.0-32.0); CREATININE 0.76 mg/dL (0.70-1.30); Calcium 8.6 mg/dL (8.5-10.1); Chloride 102 mmol/L (98-107); Glucose 83 mg/dL (74-106); Magnesium 1.6 mg/dL (1.8-2.4); Potassium 4.2 mmol/L (3.5-5.1); Sodium 138 mmol/L (136-145)
--- NOTE | 2019-12-24 10:49 | NUR.NOTE ---
0900: pt still requiring restraints for his safety at this time. pt requiring multiple doses of IV ativan at this time for withdrawal. RN with patient at the bedside as a one to one at this time for patient safety. pt easily agitated at this time. RN able to re-direct pt at times but not consistently. continue to monitor.
[2019-12-24] MEDS: LORazepam 1 MG TAB PO/SL (10:50)
[2019-12-24 10:52] LABS: Ammonia 16 umol/L (11-32)
[2019-12-24] MEDS: Gabapentin 300 MG CAP PO (11:34)
[2019-12-24] MEDS: chlordiazePOXIDE 25 MG CAP 50 MG PO (11:34)
[2019-12-24] MEDS: Thiamine 100 MG TAB PO (11:34)
[2019-12-24] MEDS: AMPICILLIN/SULBACTAM 3 GM in Normal Saline 100 ML IVPB ×2 (11:34→17:20)
[2019-12-24] MEDS: Nicotine 21 MG/24 HR PATCH TD (11:35)
--- NOTE | 2019-12-24 11:42 | PGE_ITS ---
Date of Service Date of service: 12/24/19 Time of Service: 11:42 Assessment and Plan Assessment and plan (1) Alcohol withdrawal delirium, acute, hyperactive: Status: Acute Assessment and plan: Alcohol withdrawal with agitation. Restraints required due to risk of self-harm and some transient aggressive behaviors towards nursing staff. Responsive to increased doses of benzodiazepine and presently calmer, suitably responsive to verbal stimulation although still quite confused/encephalopathic. Ammonia levels not consistent with hepatic encephalopathy. I do think this represents alcohol withdrawal with possible delirium tremens given the timing since admission and high alcohol levels on admission. No obvious source of discomfort that might be adding to his agitation. He does not seem to be tender in his right upper quadrant, but I am concerned with possible cholecystitis given bilirubin elevation and initial findings on CT scan, so this may be playing a role in agitation. Increase scheduled chlordiazepoxide and stop oxazepam just to simplify his regimen. I have added IM lorazepam as an option given the patient is pulling out his IV. Monitor SaO2, end-tidal CO2, level of agitation/sedation. Gabapentin is also been added to help with withdrawal symptoms and complaints of body pain and possibly with ongoing alcohol use disorder. I do not think neuro imaging indicated at this time as long as he is clearing over the next few days. (2) Acquired pancytopenia: Status: Acute Assessment and plan: Probable marrow toxicity from alcohol abuse. He does seem to have chronic cirrhosis, but these platelet levels are below his baseline. Given downward trend since admission, I am stopping Lovenox. Continue to monitor. (3) Coronavirus infection, unspecified: Status: Acute Assessment and plan: Anticipate this will be negative, but it is still pending. Expect results today, and stress precautions can be discontinued if this is negative (4) Multifocal lung consolidation: Status: Acute Assessment and plan: Consistent with aspiration pneumonia with possible element of pneumonitis. We will continue ampicillin with sulbactam to treat this. His respiratory status is improving. (5) Alcoholic: Status: Chronic Assessment and plan: I reviewed the outpatient record and the patient has a long history of chronic alcoholism. He was not in the state of mind discussed possible treatment, but certainly will encourage him to pursue treatment for alcohol use disorder once he is through withdrawal. (6) Liver failure: Status: Acute Assessment and plan: I am concerned with increase bilirubin since admission. Admission CT does suggest cirrhosis with some gallbladder and common bile duct distention, will get right upper quadrant ultrasound to reassess given increasing bilirubin. He does have a known history of chronic hepatitis C along with alcoholism. Drug screen negative on presentation and he is not a known active IV user. I have added a stat repeat of INR and LFTs. No known history of ingestion, but did not get a good history on presentation. Hold acetaminophen for now. May need adjust his medication based on liver dysfunction further. (7) DVT prophylaxis: Status: Acute Assessment and plan: Stopping heparin as above with normocytic anemia. Patient is quite active. Subjective Subjective Patient reports: denies diarrhea, vomiting and fever Interval history since last seen: 24-hour events: Started on chlordiazepoxide scheduled yesterday for increasing agitation despite Ativan withdrawal protocol Required additional IV lorazepam last night, placed on continuous monitoring with one-to-one nursing and restraints for his own safety after hospitalist evaluation Patient states at 1 point that he feels awful, but then states he is just fine. He did report to the nurses he was achy all over this morning. He did hit his left hip during an episode of agitation, but no open wounds. He states he is a little bit hungry, but does appear confused still. Exam Narrative Exam Narrative: Alert but not oriented to place or time. Responds to questions, but answers not consistently appropriate. In 3-point restraints Head is atraumatic, notable icterus. Pupils equal round reactive. awake but sedated jaundiced man in four-point restraints with spontaneous movement of all extremities noted. Lungs are clear to auscultation bilaterally normal effort Heart is regular rate and rhythm no murmurs gallops or rubs He does move all 4 extremities, no current tremor. No musculoskeletal deformities. Objective Objective Clinical Data: Abnormal lab results 12/24/19 Range/Units 10:15 Anion Gap 11.5 H (3-11) mmol/L BUN 6 L (7-18) mg/dL Magnesium 1.6 L (1.8-2.4) mg/dL Total Bilirubin 8.6 H (0.2-1.0) mg/dL Vital Signs Temperature 36.4 C L 12/24/19 10:59 Temperature Source Temporal Artery Scan 12/24/19 10:59 Pulse 76 12/24/19 10:59 Pulse Rhythm Regular 12/23/19 20:21 Respiratory Rate 16 12/24/19 10:59 Respiratory Effort 12/24/19 07:00 Respiratory Depth Normal 12/23/19 17:08 Respiratory Pattern Normal 12/23/19 17:08 Blood Pressure 119/76 12/24/19 10:59 Blood Pressure Mean 82 12/22/19 03:01 Pulse Oximetry 93 L 12/24/19 10:59 Oxygen Delivery Method Room Air 12/24/19 10:59 Oxygen Flow Rate 0 12/24/19 10:59 Pain Level 0 12/24/19 01:35 Comment 12/23/19 20:10 Intake & Output 12/23/19 12/23/19 12/24/19 11:59 23:59 11:59 Intake Total 1450 / 2617.5 1167.5 / 2617.5 30 / 30 Output Total 600 / 2480 1880 / 2480 750 / 750 Balance 850 / 137.5 -712.5 / 137.5 -720 / -720 Intake: IV 1200 / 2367.5 1167.5 / 2367.5 30 / 30 Oral 250 / 250 Output: Urine 600 / 2480 1880 / 2480 750 / 750 Other: Urine Color [place] Light Veronica Light Veronica Urine Appearance Clear Clear Clear Urine Odor Normal Strong Comment in 3 voids of 200ml each. Dribbles after voids. Also inct. also inct Voiding Methods Urinal Urinal Urinal Incontinent Laboratory Results WBC 4.02 k/cumm (4.4-10.8) L D 12/23/19 06:58 RBC 3.69 m/cumm (4.50-6.00) L 12/23/19 06:58 Hgb 12.7 g/dL (13.5-17.5) L 12/23/19 06:58 Hct 37.7 % (40.0-50.0) L 12/23/19 06:58 MCV 102.2 fL (80-95) H 12/23/19 06:58 MCH 34.4 pg (27.0-33.0) H 12/23/19 06:58 MCHC 33.7 g/dL (32.0-36.0) 12/23/19 06:58 RDW 13.9 % (11.8-14.1) 12/23/19 06:58 Plt Count 52 x1000/uL (130-400) L 12/23/19 06:58 MPV 10.7 fL (8.0-11.0) 12/23/19 06:58 Immature Gran % 0.0 % 12/23/19 06:58 Neutrophils % 55.3 12/23/19 06:58 Lymphocytes % 32.6 12/23/19 06:58 Monocytes % 10.7 12/23/19 06:58 Eosinophils % 1.2 12/23/19 06:58 Basophils % 0.2 12/23/19 06:58 Absolute Neutrophils 2.22 k/cumm (1.2-6.7) 12/23/19 06:58 Absolute Lymphocytes 1.31 k/cumm (1.2-3.4) 12/23/19 06:58 Absolute Monocytes 0.43 k/cumm (0.11-0.7) 12/23/19 06:58 Absolute Eosinophils 0.05 k/cumm (0.0-0.7) 12/23/19 06:58 Absolute Basophils 0.01 k/cumm (0.0-0.2) 12/23/19 06:58 Differential Comment Plt morph reviewed 12/23/19 06:58 RBC Morphology See below 12/23/19 06:58 Macrocytosis 2+ 12/23/19 06:58 PT 14.1 sec (9.3-11.0) H 12/22/19 06:31 INR 1.4 (0.9-1.1) H 12/22/19 06:31 Sodium 138 mmol/L (136-145) 12/24/19 10:15 Potassium 4.2 mmol/L (3.5-5.1) 12/24/19 10:15 Chloride 102 mmol/L (98-107) 12/24/19 10:15 Carbon Dioxide 24.5 mmol/L (21.0-32.0) 12/24/19 10:15 Anion Gap 11.5 mmol/L (3-11) H 12/24/19 10:15 BUN 6 mg/dL (7-18) L 12/24/19 10:15 Creatinine 0.76 mg/dL (0.70-1.30) 12/24/19 10:15 Estimated GFR/1.73 m2 >= 60.00 (mL/min/1.73m2) 12/24/19 10:15 Glucose 83 mg/dL (74-106) 12/24/19 10:15 Lactate 1.6 mmol/L (0.6-1.4) H 12/22/19 06:31 Calcium 8.6 mg/dL (8.5-10.1) 12/24/19 10:15 Phosphorus 3.7 mg/dL (2.6-4.7) 12/22/19 06:31 Magnesium 1.6 mg/dL (1.8-2.4) L 12/24/19 10:15 Total Bilirubin 8.6 mg/dL (0.2-1.0) H 12/24/19 10:15 AST 135 U/L (15-37) H 12/22/19 06:31 ALT 57 U/L (16-63) 12/22/19 06:31 Alkaline Phosphatase 158 U/L (46-116) H 12/22/19 06:31 Ammonia 16 umol/L (11-32) 12/24/19 10:15 Troponin I < 0.05 ng/Ml (<0.06) 12/22/19 06:31 Total Protein 6.9 g/dL (6.4-8.2) 12/22/19 06:31 Albumin 2.7 g/dL (3.4-5.0) L 12/22/19 06:31 Lipase 240 U/L (73-393) 12/21/19 19:40 Procalcitonin < 0.1 ng/mL 12/21/19 23:30 Urine Color Dark yellow (Yellow) 12/22/19 08:00 Urine Clarity Clear (Clear) 12/22/19 08:00 Urine pH 6.5 (5-8) 12/22/19 08:00 Ur Specific [place] 1.020 (1.005-1.025) 12/22/19 08:00 Urine Protein Negative mg/dL (Negative) 12/22/19 08:00 Urine Ketones Negative mg/dL (Negative) 12/22/19 08:00 Urine Blood Negative (Negative) 12/22/19 08:00 Urine Nitrite Negative (Negative) 12/22/19 08:00 Urine Bilirubin Negative (Negative) 12/22/19 08:00 Urine Urobilinogen >=8.0 EU/dL (Up TO 0.2) 12/22/19 08:00 Ur Leukocyte Esterase Trace (Negative) H 12/22/19 08:00 Urine RBC 0-2 HPF (0-2) 12/22/19 08:00 Urine WBC 5-10 HPF (0-5) 12/22/19 08:00 Ur Epithelial Cells Few HPF (Negative) 12/22/19 08:00 Urine Crystals Negative HPF (Negative) 12/22/19 08:00 Urine Bacteria Rare HPF (Negative) 12/22/19 08:00 Urine Casts Negative LPF (Negative) 12/22/19 08:00 Urine Mucus Moderate (Negative) 12/22/19 08:00 Ur Culture Indicated? Yes 12/22/19 08:00 Urine Glucose Negative mg/dL (Negative) 12/22/19 08:00 Urine Opiates Screen Negative (Negative) 12/21/19 20:30 Urine Methadone Screen Negative (Negative) 12/21/19 20:30 Ur Barbiturates Screen Negative (Negative) 12/21/19 20:30 Ur Tricyclics Screen Negative (Negative) 12/21/19 20:30 Ur Amphetamines Screen Negative (Negative) 12/21/19 20:30 U Benzodiazepines Scrn Negative (Negative) 12/21/19 20:30 Urine Cocaine Screen Negative (Negative) 12/21/19 20:30 Ur THC Screen Negative (Negative) 12/21/19 20:30 Ethyl Alcohol 226.1 mg/dL (<3) 12/22/19 06:31
[2019-12-24] MEDS: Multivitamin TAB 1 TAB PO (11:43)
[2019-12-24] MEDS: Folic Acid 1 MG TAB PO (11:45)
[2019-12-24 12:05] LABS: ALT 56 U/L (16-63); AST 122 U/L (15-37); Albumin 3.4 g/dL (3.4-5.0); Alkaline Phosphatase 168 U/L (46-116); Bilirubin, Total 8.9 mg/dL (0.2-1.0); Total Protein 8.5 g/dL (6.4-8.2)
[2019-12-24 12:26] LABS: INR 1.5 (0.9-1.1); Prothrombin Time 14.8 sec (9.3-11.0)
--- NOTE | 2019-12-24 13:03 | PDOC.CMPRO ---
Care Management Progress Note Per MD, anticipate COVID-19 test results today. Due to conservation of PPE, CM awaiting results prior to assessment. Per report, Kapil is requiring much nursing support, is actively withdrawing and was restrained and medicated on evenings/retirement plan counselor. CM continues to follow and will assess and support when appropriate.
--- NOTE | 2019-12-24 14:05 | W.PM.PROGNOT ---
Date of Service Date of service: 12/23/19 Time of Service: 15:05 Assessment and Plan Assessment and plan (1) Alcohol withdrawal delirium, acute, hyperactive: Status: Acute Assessment and plan: Alcohol withdrawal with agitation. Continue long-acting chlordiazepoxide along with Ativan as needed per withdrawal protocol. (2) Acquired pancytopenia: Status: Acute Assessment and plan: Probable marrow toxicity from alcohol abuse likely in addition to chronic cirrhosis. Continue to monitor. (3) Coronavirus infection, unspecified: Status: Acute Assessment and plan: Anticipate this will be negative, but it is still pending. Continue aspirin precautions. (4) Multifocal lung consolidation: Status: Acute Assessment and plan: Consistent with aspiration pneumonia with possible element of pneumonitis. We will continue ampicillin with sulbactam to treat this. His respiratory status is stable. (5) Alcoholic: Status: Chronic Assessment and plan: Address alcohol use disorder when mental status clears. (6) DVT prophylaxis: Status: Acute Assessment and plan: Continue Lovenox given cirrhotics have high risk of thromboembolic disease. Subjective Subjective Patient reports: denies diarrhea, vomiting and fever Interval history since last seen: Late entry 24-hour: Patient continues to score on Ativan protocol, but less agitated since initiating Librium this afternoon Patient complains of wanting to go outside and smoke. He denies pain. He denies hearing or seeing things that are not there, but does not consistently answer all direct questions. Exam Narrative Exam Narrative: Alert and responsive to questions, but answers not consistently appropriate. Not currently agitated, lying sideways in bed. Pupils 4 to 5 mm in darkroom and reactive, moist mucous membranes Lungs are clear to auscultation bilaterally normal effort Heart is regular rate and rhythm no murmurs gallops or rubs He does move all 4 extremities, no current tremor. No musculoskeletal deformities. No current tremor Objective Objective Clinical Data: Abnormal lab results 12/24/19 12/24/19 12/24/19 Range/Units 10:15 10:15 12:10 PT 14.8 H (9.3-11.0) sec INR 1.5 H (0.9-1.1) Anion Gap 11.5 H (3-11) mmol/L BUN 6 L (7-18) mg/dL Magnesium 1.6 L (1.8-2.4) mg/dL Total Bilirubin 8.6 H 8.9 H (0.2-1.0) mg/dL Conjugated Bilirubin 3.00 H (0.00-0.20) mg/dL AST 122 H (15-37) U/L Alkaline Phosphatase 168 H (46-116) U/L Total Protein 8.5 H (6.4-8.2) g/dL Vital Signs Temperature 36.3 C L 12/24/19 13:05 Temperature Source Temporal Artery Scan 12/24/19 13:05 Pulse 69 12/24/19 13:05 Pulse Rhythm Regular 12/23/19 20:21 Respiratory Rate 14 12/24/19 13:05 Respiratory Effort 12/24/19 07:00 Respiratory Depth Normal 12/23/19 17:08 Respiratory Pattern Normal 12/23/19 17:08 Blood Pressure 98/60 L 12/24/19 13:05 Blood Pressure Mean 82 12/22/19 03:01 Pulse Oximetry 92 L 12/24/19 13:05 Oxygen Delivery Method Nasal Cannula 12/24/19 13:05 Oxygen Flow Rate 2 12/24/19 13:05 Pain Level 0 12/24/19 01:35 Comment 12/23/19 20:10 Intake & Output 12/23/19 12/24/19 12/24/19 23:59 11:59 23:59 Intake Total 1267.5 / 2717.5 30 / 30 Output Total 1880 / 2480 950 / 1150 200 / 1150 Balance -612.5 / 237.5 -920 / -1120 -200 / -1120 Intake: IV 1267.5 / 2467.5 30 / 30 Output: Urine 1880 / 2480 950 / 1150 200 / 1150 Other: Urine Color Light Veronica Dark [place]onica Dark Veronica Urine Appearance Clear Clear Clear Urine Odor Strong None Comment Also inct. also inct Voiding Methods Urinal Urinal Urinal Incontinent Laboratory Results WBC 4.02 k/cumm (4.4-10.8) L D 12/23/19 06:58 RBC 3.69 m/cumm (4.50-6.00) L 12/23/19 06:58 Hgb 12.7 g/dL (13.5-17.5) L 12/23/19 06:58 Hct 37.7 % (40.0-50.0) L 12/23/19 06:58 MCV 102.2 fL (80-95) H 12/23/19 06:58 MCH 34.4 pg (27.0-33.0) H 12/23/19 06:58 MCHC 33.7 g/dL (32.0-36.0) 12/23/19 06:58 RDW 13.9 % (11.8-14.1) 12/23/19 06:58 Plt Count 52 x1000/uL (130-400) L 12/23/19 06:58 MPV 10.7 fL (8.0-11.0) 12/23/19 06:58 Immature Gran % 0.0 % 12/23/19 06:58 Neutrophils % 55.3 12/23/19 06:58 Lymphocytes % 32.6 12/23/19 06:58 Monocytes % 10.7 12/23/19 06:58 Eosinophils % 1.2 12/23/19 06:58 Basophils % 0.2 12/23/19 06:58 Absolute Neutrophils 2.22 k/cumm (1.2-6.7) 12/23/19 06:58 Absolute Lymphocytes 1.31 k/cumm (1.2-3.4) 12/23/19 06:58 Absolute Monocytes 0.43 k/cumm (0.11-0.7) 12/23/19 06:58 Absolute Eosinophils 0.05 k/cumm (0.0-0.7) 12/23/19 06:58 Absolute Basophils 0.01 k/cumm (0.0-0.2) 12/23/19 06:58 Differential Comment Plt morph reviewed 12/23/19 06:58 RBC Morphology See below 12/23/19 06:58 Macrocytosis 2+ 12/23/19 06:58 PT 14.8 sec (9.3-11.0) H 12/24/19 12:10 INR 1.5 (0.9-1.1) H 12/24/19 12:10 Sodium 138 mmol/L (136-145) 12/24/19 10:15 Potassium 4.2 mmol/L (3.5-5.1) 12/24/19 10:15 Chloride 102 mmol/L (98-107) 12/24/19 10:15 Carbon Dioxide 24.5 mmol/L (21.0-32.0) 12/24/19 10:15 Anion Gap 11.5 mmol/L (3-11) H 12/24/19 10:15 BUN 6 mg/dL (7-18) L 12/24/19 10:15 Creatinine 0.76 mg/dL (0.70-1.30) 12/24/19 10:15 Estimated GFR/1.73 m2 >= 60.00 (mL/min/1.73m2) 12/24/19 10:15 Glucose 83 mg/dL (74-106) 12/24/19 10:15 Lactate 1.6 mmol/L (0.6-1.4) H 12/22/19 06:31 Calcium 8.6 mg/dL (8.5-10.1) 12/24/19 10:15 Phosphorus 3.7 mg/dL (2.6-4.7) 12/22/19 06:31 Magnesium 1.6 mg/dL (1.8-2.4) L 12/24/19 10:15 Total Bilirubin 8.6 mg/dL (0.2-1.0) H 12/24/19 10:15 Total Bilirubin 8.9 mg/dL (0.2-1.0) H 12/24/19 10:15 Conjugated Bilirubin 3.00 mg/dL (0.00-0.20) H 12/24/19 10:15 AST 122 U/L (15-37) H 12/24/19 10:15 ALT 56 U/L (16-63) 12/24/19 10:15 Alkaline Phosphatase 168 U/L (46-116) H 12/24/19 10:15 Ammonia 16 umol/L (11-32) 12/24/19 10:15 Troponin I < 0.05 ng/Ml (<0.06) 12/22/19 06:31 Total Protein 8.5 g/dL (6.4-8.2) H 12/24/19 10:15 Albumin 3.4 g/dL (3.4-5.0) 12/24/19 10:15 Lipase 240 U/L (73-393) 12/21/19 19:40 Procalcitonin < 0.1 ng/mL 12/21/19 23:30 Urine Color Dark yellow (Yellow) 12/22/19 08:00 Urine Clarity Clear (Clear) 12/22/19 08:00 Urine pH 6.5 (5-8) 12/22/19 08:00 Ur Specific [place] 1.020 (1.005-1.025) 12/22/19 08:00 Urine Protein Negative mg/dL (Negative) 12/22/19 08:00 Urine Ketones Negative mg/dL (Negative) 12/22/19 08:00 Urine Blood Negative (Negative) 12/22/19 08:00 Urine Nitrite Negative (Negative) 12/22/19 08:00 Urine Bilirubin Negative (Negative) 12/22/19 08:00 Urine Urobilinogen >=8.0 EU/dL (Up TO 0.2) 12/22/19 08:00 Ur Leukocyte Esterase Trace (Negative) H 12/22/19 08:00 Urine RBC 0-2 HPF (0-2) 12/22/19 08:00 Urine WBC 5-10 HPF (0-5) 12/22/19 08:00 Ur Epithelial Cells Few HPF (Negative) 12/22/19 08:00 Urine Crystals Negative HPF (Negative) 12/22/19 08:00 Urine Bacteria Rare HPF (Negative) 12/22/19 08:00 Urine Casts Negative LPF (Negative) 12/22/19 08:00 Urine Mucus Moderate (Negative) 12/22/19 08:00 Ur Culture Indicated? Yes 12/22/19 08:00 Urine Glucose Negative mg/dL (Negative) 12/22/19 08:00 Urine Opiates Screen Negative (Negative) 12/21/19 20:30 Urine Methadone Screen Negative (Negative) 12/21/19 20:30 Ur Barbiturates Screen Negative (Negative) 12/21/19 20:30 Ur Tricyclics Screen Negative (Negative) 12/21/19 20:30 Ur Amphetamines Screen Negative (Negative) 12/21/19 20:30 U Benzodiazepines Scrn Negative (Negative) 12/21/19 20:30 Urine Cocaine Screen Negative (Negative) 12/21/19 20:30 Ur THC Screen Negative (Negative) 12/21/19 20:30 Ethyl Alcohol 226.1 mg/dL (<3) 12/22/19 06:31
[2019-12-24] MEDS: MAGNESIUM SULFATE 4 GM/100 ML BAG IVPB (15:10)
--- NOTE | 2019-12-24 16:43 | PGE_ITS ---
Date of Service Date of service: 12/24/19 Time of Service: 16:43 Assessment and Plan Assessment and plan (1) Alcohol withdrawal delirium, acute, hyperactive: Status: Acute Assessment and plan: Alcohol withdrawal with agitation. Patient required transfer to ICU with ongoing agitation despite maximum levels of lorazepam on the floor. His current nurse feels comfortable with his current status, feels she can safely sedate him under monitoring without intubation. We will proceed with this plan and avoid the risk of mechanical ventilation if possible. (2) Liver failure: Status: Acute Assessment and plan: Repeat LFTs and INR did not show significant progression of liver failure since admission, despite the uptrend in the bilirubin. Clinically, his exam is not consistent with acute cholecystitis or biliary obstruction, so I think it safe to wait till tomorrow morning when the business office technician is available to do the abdominal ultrasound assess for signs of obstruction. Subjective Subjective Patient reports: denies shortness of breath and fever Interval history since last seen: Patient was needing increasing dose of Ativan, was transferred to ICU level to the respiratory ICU. Per nursing, patient is responding to Ativan and respirate status has been stable with no sign of respiratory depression. Exam Narrative Exam Narrative: Alert and responsive to questions. Sitting up in bed. Oriented to place and self (knows date of ), but not to time. Sclera icteric, pupils equal and reactive, moist mucous membranes Lungs are clear to auscultation bilaterally normal effort Heart is regular rate and rhythm no murmurs gallops or rubs Abdomen is soft with active bowel sounds, nontender to deep palpation right upper quadrant, no organomegaly or other masses palpable. Extremities show no cyanosis, clubbing, or edema. Skin is jaundiced. No large bruises. Objective Objective Clinical Data: Abnormal lab results 12/24/19 12/24/19 12/24/19 Range/Units 10:15 10:15 12:10 PT 14.8 H (9.3-11.0) sec INR 1.5 H (0.9-1.1) Anion Gap 11.5 H (3-11) mmol/L BUN 6 L (7-18) mg/dL Magnesium 1.6 L (1.8-2.4) mg/dL Total Bilirubin 8.6 H 8.9 H (0.2-1.0) mg/dL Conjugated Bilirubin 3.00 H (0.00-0.20) mg/dL AST 122 H (15-37) U/L Alkaline Phosphatase 168 H (46-116) U/L Total Protein 8.5 H (6.4-8.2) g/dL Vital Signs Temperature 36.8 C 12/24/19 14:32 Temperature Source Temporal Artery Scan 12/24/19 14:32 Pulse 66 12/24/19 14:40 Pulse Rhythm Regular 12/23/19 20:21 Respiratory Rate 16 12/24/19 14:40 Respiratory Effort Non-Labored 12/24/19 14:32 Respiratory Depth Normal 12/23/19 17:08 Respiratory Pattern Normal 12/23/19 17:08 Blood Pressure 127/74 12/24/19 14:40 Blood Pressure Mean 82 12/22/19 03:01 Pulse Oximetry 100 12/24/19 14:40 Oxygen Delivery Method Nasal Cannula 12/24/19 14:40 Oxygen Flow Rate 0 12/24/19 14:32 Pain Level 0 12/24/19 14:32 Comment 12/23/19 20:10 Intake & Output 12/23/19 12/24/19 12/24/19 23:59 11:59 23:59 Intake Total 1267.5 / 2717.5 130 / 230 100 / 230 Output Total 1880 / 2480 950 / 1150 200 / 1150 Balance -612.5 / 237.5 -820 / -920 -100 / -920 Weight 84.9 kg Intake: IV 1267.5 / 2467.5 130 / 230 100 / 230 Output: Urine 1880 / 2480 950 / 1150 200 / 1150 Other: Urine Color Light Veronica Dark Veronica Dark Veronica Urine Appearance Clear Clear Clear Urine Odor Strong None Comment Also inct. also inct Voiding Methods Urinal Urinal Urinal Incontinent Laboratory Results WBC 4.02 k/cumm (4.4-10.8) L D 12/23/19 06:58 RBC 3.69 m/cumm (4.50-6.00) L 12/23/19 06:58 Hgb 12.7 g/dL (13.5-17.5) L 12/23/19 06:58 Hct 37.7 % (40.0-50.0) L 12/23/19 06:58 MCV 102.2 fL (80-95) H 12/23/19 06:58 MCH 34.4 pg (27.0-33.0) H 12/23/19 06:58 MCHC 33.7 g/dL (32.0-36.0) 12/23/19 06:58 RDW 13.9 % (11.8-14.1) 12/23/19 06:58 Plt Count 52 x1000/uL (130-400) L 12/23/19 06:58 MPV 10.7 fL (8.0-11.0) 12/23/19 06:58 Immature Gran % 0.0 % 12/23/19 06:58 Neutrophils % 55.3 12/23/19 06:58 Lymphocytes % 32.6 12/23/19 06:58 Monocytes % 10.7 12/23/19 06:58 Eosinophils % 1.2 12/23/19 06:58 Basophils % 0.2 12/23/19 06:58 Absolute Neutrophils 2.22 k/cumm (1.2-6.7) 12/23/19 06:58 Absolute Lymphocytes 1.31 k/cumm (1.2-3.4) 12/23/19 06:58 Absolute Monocytes 0.43 k/cumm (0.11-0.7) 12/23/19 06:58 Absolute Eosinophils 0.05 k/cumm (0.0-0.7) 12/23/19 06:58 Absolute Basophils 0.01 k/cumm (0.0-0.2) 12/23/19 06:58 Differential Comment Plt morph reviewed 12/23/19 06:58 RBC Morphology See below 12/23/19 06:58 Macrocytosis 2+ 12/23/19 06:58 PT 14.8 sec (9.3-11.0) H 12/24/19 12:10 INR 1.5 (0.9-1.1) H 12/24/19 12:10 Sodium 138 mmol/L (136-145) 12/24/19 10:15 Potassium 4.2 mmol/L (3.5-5.1) 12/24/19 10:15 Chloride 102 mmol/L (98-107) 12/24/19 10:15 Carbon Dioxide 24.5 mmol/L (21.0-32.0) 12/24/19 10:15 Anion Gap 11.5 mmol/L (3-11) H 12/24/19 10:15 BUN 6 mg/dL (7-18) L 12/24/19 10:15 Creatinine 0.76 mg/dL (0.70-1.30) 12/24/19 10:15 Estimated GFR/1.73 m2 >= 60.00 (mL/min/1.73m2) 12/24/19 10:15 Glucose 83 mg/dL (74-106) 12/24/19 10:15 Lactate 1.6 mmol/L (0.6-1.4) H 12/22/19 06:31 Calcium 8.6 mg/dL (8.5-10.1) 12/24/19 10:15 Phosphorus 3.7 mg/dL (2.6-4.7) 12/22/19 06:31 Magnesium 1.6 mg/dL (1.8-2.4) L 12/24/19 10:15 Total Bilirubin 8.6 mg/dL (0.2-1.0) H 12/24/19 10:15 Total Bilirubin 8.9 mg/dL (0.2-1.0) H 12/24/19 10:15 Conjugated Bilirubin 3.00 mg/dL (0.00-0.20) H 12/24/19 10:15 AST 122 U/L (15-37) H 12/24/19 10:15 ALT 56 U/L (16-63) 12/24/19 10:15 Alkaline Phosphatase 168 U/L (46-116) H 12/24/19 10:15 Ammonia 16 umol/L (11-32) 12/24/19 10:15 Troponin I < 0.05 ng/Ml (<0.06) 12/22/19 06:31 Total Protein 8.5 g/dL (6.4-8.2) H 12/24/19 10:15 Albumin 3.4 g/dL (3.4-5.0) 12/24/19 10:15 Lipase 240 U/L (73-393) 12/21/19 19:40 Procalcitonin < 0.1 ng/mL 12/21/19 23:30 Urine Color Dark yellow (Yellow) 12/22/19 08:00 Urine Clarity Clear (Clear) 12/22/19 08:00 Urine pH 6.5 (5-8) 12/22/19 08:00 Ur Specific [place] 1.020 (1.005-1.025) 12/22/19 08:00 Urine Protein Negative mg/dL (Negative) 12/22/19 08:00 Urine Ketones Negative mg/dL (Negative) 12/22/19 08:00 Urine Blood Negative (Negative) 12/22/19 08:00 Urine Nitrite Negative (Negative) 12/22/19 08:00 Urine Bilirubin Negative (Negative) 12/22/19 08:00 Urine Urobilinogen >=8.0 EU/dL (Up TO 0.2) 12/22/19 08:00 Ur Leukocyte Esterase Trace (Negative) H 12/22/19 08:00 Urine RBC 0-2 HPF (0-2) 12/22/19 08:00 Urine WBC 5-10 HPF (0-5) 12/22/19 08:00 Ur Epithelial Cells Few HPF (Negative) 12/22/19 08:00 Urine Crystals Negative HPF (Negative) 12/22/19 08:00 Urine Bacteria Rare HPF (Negative) 12/22/19 08:00 Urine Casts Negative LPF (Negative) 12/22/19 08:00 Urine Mucus Moderate (Negative) 12/22/19 08:00 Ur Culture Indicated? Yes 12/22/19 08:00 Urine Glucose Negative mg/dL (Negative) 12/22/19 08:00 Urine Opiates Screen Negative (Negative) 12/21/19 20:30 Urine Methadone Screen Negative (Negative) 12/21/19 20:30 Ur Barbiturates Screen Negative (Negative) 12/21/19 20:30 Ur Tricyclics Screen Negative (Negative) 12/21/19 20:30 Ur Amphetamines Screen Negative (Negative) 12/21/19 20:30 U Benzodiazepines Scrn Negative (Negative) 12/21/19 20:30 Urine Cocaine Screen Negative (Negative) 12/21/19 20:30 Ur THC Screen Negative (Negative) 12/21/19 20:30 Ethyl Alcohol 226.1 mg/dL (<3) 12/22/19 06:31
[2019-12-24 17:57] LABS: COVID-19 RT-PCR Result Not Detected
[2019-12-24] MEDS: diazePAM 10 MG/2 ML SYR IVP ×26 (18:30→23:32)
[2019-12-24] MEDS: LORazepam 2 MG/ML VIAL IM (22:49)
[2019-12-24] MEDS: LORazepam 2 MG/ML VIAL 8 MG IVP (23:30)
[2019-12-25] VITALS (121 sets, daily range): BP systolic 74–120; BP diastolic 43–98; PULSE 44–159; RESP 10–27; TEMP 29–37.1; O2SAT 90–100
--- NOTE | 2019-12-25 00:18 | PGE_ITS ---
Date of Service Date of service: 12/25/19 Time of Service: 00:18 Assessment and Plan Assessment and plan (1) Alcohol withdrawal delirium, acute, hyperactive: Status: Acute Assessment and plan: Now requiring escalation of therapy to addition of precedex gtt with plans to wean ativan gtt off as tolerated. Will repeat CXR to ensure the patient did not re-aspirate. Total Critical Care Time 120 minutes. Subjective Subjective Interval history since last seen: Called to evaluate the patient at bedside due to patient requiring multiple doses of IV ativan, midazolam, and still not being adequately treated for his alcohol withdrawal even after initiation of ativan drip. Anesthesia was also called to bedside. Decision was made to start the patient on precedex gtt, which would not require him getting intubated. At this time, the patient is calm, can protect airway, asleep. Oxygen saturations adequate on 1L of O2 by NC. HR/BP stable. Exam Narrative Exam Narrative: General: Jaundiced middle-aged male, initiatially very agitated/cursing, now on precedex gtt, comfortable, calm, no signs of respiratory distress HEENT: EOMI, dry MM Heart: RRR, no m/r/g Lungs: diminished breath sounds B Abdomen: soft, nontender, nondistended Extremities: no e/c/c BLE's; has soft restraints on all 4 limbs Objective Objective Clinical Data: Abnormal lab results 12/24/19 12/24/19 12/24/19 Range/Units 10:15 10:15 12:10 PT 14.8 H (9.3-11.0) sec INR 1.5 H (0.9-1.1) Anion Gap 11.5 H (3-11) mmol/L BUN 6 L (7-18) mg/dL Magnesium 1.6 L (1.8-2.4) mg/dL Total Bilirubin 8.6 H 8.9 H (0.2-1.0) mg/dL Conjugated Bilirubin 3.00 H (0.00-0.20) mg/dL AST 122 H (15-37) U/L Alkaline Phosphatase 168 H (46-116) U/L Total Protein 8.5 H (6.4-8.2) g/dL Vital Signs Temperature 36.8 C 12/24/19 14:32 Temperature Source Temporal Artery Scan 12/24/19 14:32 Pulse 77 12/24/19 21:25 Pulse Rhythm Regular 12/24/19 08:15 Respiratory Rate 16 12/24/19 14:40 Respiratory Effort Non-Labored 12/24/19 14:32 Respiratory Depth Normal 12/24/19 08:15 Respiratory Pattern Normal 12/24/19 08:15 Blood Pressure 136/93 H 12/24/19 21:00 Blood Pressure Mean 82 12/22/19 03:01 Pulse Oximetry 92 L 12/24/19 21:25 Oxygen Delivery Method Room Air 12/24/19 21:25 Oxygen Flow Rate 0 12/24/19 21:25 Pain Level 0 12/24/19 14:32 Comment 12/23/19 20:10 Intake & Output 12/24/19 12/24/19 12/25/19 11:59 23:59 11:59 Intake Total 130 / 464 317 / 464 24.783 / 24.783 Output Total 950 / 1150 200 / 1150 Balance -820 / -686 117 / -686 24.783 / 24.783 Weight 84.9 kg Intake: IV 130 / 464 317 / 464 24.783 / 24.783 Output: Urine 950 / 1150 200 / 1150 Other: Urine Color Dark Veronica Dark Veronica Urine Appearance Clear Clear Urine Odor None Comment also inct Voiding Methods Urinal Urinal Laboratory Results WBC 4.02 k/cumm (4.4-10.8) L D 12/23/19 06:58 RBC 3.69 m/cumm (4.50-6.00) L 12/23/19 06:58 Hgb 12.7 g/dL (13.5-17.5) L 12/23/19 06:58 Hct 37.7 % (40.0-50.0) L 12/23/19 06:58 MCV 102.2 fL (80-95) H 12/23/19 06:58 MCH 34.4 pg (27.0-33.0) H 12/23/19 06:58 MCHC 33.7 g/dL (32.0-36.0) 12/23/19 06:58 RDW 13.9 % (11.8-14.1) 12/23/19 06:58 Plt Count 52 x1000/uL (130-400) L 12/23/19 06:58 MPV 10.7 fL (8.0-11.0) 12/23/19 06:58 Immature Gran % 0.0 % 12/23/19 06:58 Neutrophils % 55.3 12/23/19 06:58 Lymphocytes % 32.6 12/23/19 06:58 Monocytes % 10.7 12/23/19 06:58 Eosinophils % 1.2 12/23/19 06:58 Basophils % 0.2 12/23/19 06:58 Absolute Neutrophils 2.22 k/cumm (1.2-6.7) 12/23/19 06:58 Absolute Lymphocytes 1.31 k/cumm (1.2-3.4) 12/23/19 06:58 Absolute Monocytes 0.43 k/cumm (0.11-0.7) 12/23/19 06:58 Absolute Eosinophils 0.05 k/cumm (0.0-0.7) 12/23/19 06:58 Absolute Basophils 0.01 k/cumm (0.0-0.2) 12/23/19 06:58 Differential Comment Plt morph reviewed 12/23/19 06:58 RBC Morphology See below 12/23/19 06:58 Macrocytosis 2+ 12/23/19 06:58 PT 14.8 sec (9.3-11.0) H 12/24/19 12:10 INR 1.5 (0.9-1.1) H 12/24/19 12:10 Sodium 138 mmol/L (136-145) 12/24/19 10:15 Potassium 4.2 mmol/L (3.5-5.1) 12/24/19 10:15 Chloride 102 mmol/L (98-107) 12/24/19 10:15 Carbon Dioxide 24.5 mmol/L (21.0-32.0) 12/24/19 10:15 Anion Gap 11.5 mmol/L (3-11) H 12/24/19 10:15 BUN 6 mg/dL (7-18) L 12/24/19 10:15 Creatinine 0.76 mg/dL (0.70-1.30) 12/24/19 10:15 Estimated GFR/1.73 m2 >= 60.00 (mL/min/1.73m2) 12/24/19 10:15 Glucose 83 mg/dL (74-106) 12/24/19 10:15 Lactate 1.6 mmol/L (0.6-1.4) H 12/22/19 06:31 Calcium 8.6 mg/dL (8.5-10.1) 12/24/19 10:15 Phosphorus 3.7 mg/dL (2.6-4.7) 12/22/19 06:31 Magnesium 1.6 mg/dL (1.8-2.4) L 12/24/19 10:15 Total Bilirubin 8.6 mg/dL (0.2-1.0) H 12/24/19 10:15 Total Bilirubin 8.9 mg/dL (0.2-1.0) H 12/24/19 10:15 Conjugated Bilirubin 3.00 mg/dL (0.00-0.20) H 12/24/19 10:15 AST 122 U/L (15-37) H 12/24/19 10:15 ALT 56 U/L (16-63) 12/24/19 10:15 Alkaline Phosphatase 168 U/L (46-116) H 12/24/19 10:15 Ammonia 16 umol/L (11-32) 12/24/19 10:15 Troponin I < 0.05 ng/Ml (<0.06) 12/22/19 06:31 Total Protein 8.5 g/dL (6.4-8.2) H 12/24/19 10:15 Albumin 3.4 g/dL (3.4-5.0) 12/24/19 10:15 Lipase 240 U/L (73-393) 12/21/19 19:40 Procalcitonin < 0.1 ng/mL 12/21/19 23:30 Urine Color Dark yellow (Yellow) 12/22/19 08:00 Urine Clarity Clear (Clear) 12/22/19 08:00 Urine pH 6.5 (5-8) 12/22/19 08:00 Ur Specific [place] 1.020 (1.005-1.025) 12/22/19 08:00 Urine Protein Negative mg/dL (Negative) 12/22/19 08:00 Urine Ketones Negative mg/dL (Negative) 12/22/19 08:00 Urine Blood Negative (Negative) 12/22/19 08:00 Urine Nitrite Negative (Negative) 12/22/19 08:00 Urine Bilirubin Negative (Negative) 12/22/19 08:00 Urine Urobilinogen >=8.0 EU/dL (Up TO 0.2) 12/22/19 08:00 Ur Leukocyte Esterase Trace (Negative) H 12/22/19 08:00 Urine RBC 0-2 HPF (0-2) 12/22/19 08:00 Urine WBC 5-10 HPF (0-5) 12/22/19 08:00 Ur Epithelial Cells Few HPF (Negative) 12/22/19 08:00 Urine Crystals Negative HPF (Negative) 12/22/19 08:00 Urine Bacteria Rare HPF (Negative) 12/22/19 08:00 Urine Casts Negative LPF (Negative) 12/22/19 08:00 Urine Mucus Moderate (Negative) 12/22/19 08:00 Ur Culture Indicated? Yes 12/22/19 08:00 Urine Glucose Negative mg/dL (Negative) 12/22/19 08:00 Urine Opiates Screen Negative (Negative) 12/21/19 20:30 Urine Methadone Screen Negative (Negative) 12/21/19 20:30 Ur Barbiturates Screen Negative (Negative) 12/21/19 20:30 Ur Tricyclics Screen Negative (Negative) 12/21/19 20:30 Ur Amphetamines Screen Negative (Negative) 12/21/19 20:30 U Benzodiazepines Scrn Negative (Negative) 12/21/19 20:30 Urine Cocaine Screen Negative (Negative) 12/21/19 20:30 Ur THC Screen Negative (Negative) 12/21/19 20:30 Ethyl Alcohol 226.1 mg/dL (<3) 12/22/19 06:31 Coronavirus (PCR) Not detected 12/21/19 22:58
[2019-12-25] MEDS: AMPICILLIN/SULBACTAM 3 GM in Normal Saline 100 ML IVPB ×5 (00:21→23:18)
[2019-12-25] MEDS: DOXYCYCLINE 100 MG in Normal Saline 100 ML 90 MG IVPB (01:15)
[2019-12-25] MEDS: Normal Saline 500 ML 30 ML IV ×2 (01:15→20:58)
[2019-12-25] MEDS: DOXYCYCLINE 100 MG in Normal Saline 100 ML IVPB ×2 (03:57→16:43)
--- NOTE | 2019-12-25 06:00 | DI.US_ITS ---
EXAM: US ABDOMEN CLINICAL HISTORY: elevated bili, dilated CBD on CT TECHNIQUE: Ultrasound performed using standard protocol. COMPARISON: ABDOMEN ULTRASOUND (P) from 03/13/2015 FINDINGS: Ultrasound was performed according to the usual protocol. There is nodular hepatic contour consisten t with cirrhosis. There is gallbladder sludge without evidence of cholelithiasis. No gross gallblad debbi wall thickening or pericholecystic fluid collection seen. Common duct measures 7-9 millimeters i n diameter, at the upper limits of normal to slightly distended. Please correlate with lab values fo r any indication of common duct obstruction. No gross cholelithiasis as visualized. Pancreas is un remarkable in appearance by ultrasound criteria. The kidneys are unremarkable in appearance with no evidence of hydronephrosis or nephrolithiasis. Ab dominal aorta and IVC are of normal diameter. Spleen contains multiple small calcifications. IMPRESSION: Borderline size of common bile duct, please correlate clinically. No other focal pathology. Findings consistent with hepatic cirrhosis as noted on CT. DATA REPOSITORY:
[2019-12-25 06:49] LABS: HCT 41.5 % (40.0-50.0); HGB 13.8 g/dL (13.5-17.5); Mean Corp. HGB Concentration 33.3 g/dL (32.0-36.0); Mean Corpuscular Hemoglobin 34.6 pg (27.0-33.0); Mean Platelet Volume 11.8 fL (8.0-11.0); RBC 3.99 m/cumm (4.50-6.00); RBC Distribution Width 13.6 % (11.8-14.1); White Blood Cell Count 4.29 k/cumm (4.4-10.8)
[2019-12-25 06:57] LABS: ALT 50 U/L (16-63); AST 101 U/L (15-37); Albumin 2.8 g/dL (3.4-5.0); Alkaline Phosphatase 127 U/L (46-116); Anion Gap 5.8 mmol/L (3-11); BUN 6 mg/dL (7-18); Bilirubin, Total 6.1 mg/dL (0.2-1.0); CO2 25.2 mmol/L (21.0-32.0); CREATININE 0.74 mg/dL (0.70-1.30); Calcium 8.3 mg/dL (8.5-10.1); Chloride 109 mmol/L (98-107); Glucose 171 mg/dL (74-106); Magnesium 1.9 mg/dL (1.8-2.4); Sodium 140 mmol/L (136-145); Total Protein 7.5 g/dL (6.4-8.2)
[2019-12-25 06:59] LABS: Potassium 5.7 mmol/L (3.5-5.1)
[2019-12-25 07:25] LABS: Platelet Count 48 x1000/uL (130-400)
[2019-12-25] MEDS: Normal Saline Flush 10 ML SYR IVP ×4 (08:53→23:19)
[2019-12-25] MEDS: Pantoprazole 40 MG VIAL IVP (08:54)
--- NOTE | 2019-12-25 09:01 | PDOC.ANES ---
Anesthesia Note Called in from home by nursing maintenance mechanic supervisor for intubation. Pt was ruled out for COVID-19 but was becoming increasingly agitated/combative despite PRN sedation. I asked the nursing maintenance mechanic supervisor to discuss the plan with Dr. Vargas, the on-call hospitalist, while I was on my way in. Upon arrival to the hospital, I found the patient had been moved from Respiratory Intensive Care Unit to the SCU. The patient was agitated, in four point restraints, with stable vital signs, and in no respiratory distress. A PRN bolus administered by the RN was effective in sedating the patient while maintaining stable vital signs and a patent airway. A collaborative discussion occurred regarding potential options for maintaining this patients safety as he continues through DT's It was decided to initiate Precedex in an effort to avoid mechanical ventilation. Dr. Vargas ordered a Precedex infusion. Within minutes of initiating Precedex, the was stable and sedate. It was then possible for nursing to establish additional IV sites and a monroe catheter safley and without difficulty.
--- NOTE | 2019-12-25 09:21 | NUR.NOTE ---
I found the patient moderately sedated and not following commands. Pt's temperature is 30C using temporal and the ear piece will not read. Pt 90F rectal temp. The warming blanket has been started immediately and I text paged Dr. Shore. I notified him that the patient is also bradycardic to 44, hypotensive 80s/50s, and has a long QTC at 0.45 (0.57 QT with 0.37 max) at 0700. Dr Shore assessing patient in room and wants pacer pads placed( completed by me). Patient 35.5 with warmer blanket still in place. Pt's QT is now 0.51 at 0745. Precedex and maintenance fluid containing potassium were stopped at 0730 change of shift. Patient had been resting with little response except for opening eyes slightly when we turned him and he tried to tense/sit up. Patient having ABD U/S and awakened during it. Patient is confused and hallucinating. Patient has RN at bedside giving support and assisting with extremity movement so the test can be completed. Patient given 3mg ativan IVP to help with increasing agitation Nursing Note:
[2019-12-25] MEDS: LORazepam 2 MG/ML VIAL IVP ×17 (09:39→21:56)
[2019-12-25] MEDS: LORazepam 2 MG/ML VIAL 1 MG IVP ×4 (10:07→16:39)
[2019-12-25 10:19] LABS: Streptococcus Pneumoniae Ag, U Negative (Negative)
--- NOTE | 2019-12-25 10:28 | CMPROGNOTE_ITS ---
- If Service Date Differs Date of service: 12/25/19 Time of Service: 10:29 Care Management Progress Note S/O: Kapil is confused, he continues to exhibit signs of acute ETOH withdrawal and not able to participate is an assessment at this time. CM reviewed patients chart and reviewed patient at interdisciplinary rounds. CM will continue to follow the patient ongoing assessment for discharge planning and needs. A:Lucho is a 54 year old male admitted for pneumonia r/o Covid 19 which is neg ative. P:Disposition to be determined, Lucho remains ICU level of care today. CM to continue to assess and coordinate discharge needs.
[2019-12-25] MEDS: diazePAM 10 MG/2 ML SYR IVP (11:39)
--- NOTE | 2019-12-25 11:45 | PGE_ITS ---
Date of Service Date of service: 12/25/19 Time of Service: 11:45 Assessment and Plan Assessment and plan (1) Alcohol withdrawal delirium, acute, hyperactive: Status: Acute Assessment and plan: Severe alcohol withdrawal with agitation and delirium. This is day #4 of admission and day #4 since his last drink. Patient required transfer to ICU with ongoing agitation despite maximum levels of lorazepam on the floor. His respite status has been stable despite extremely high levels of benzodiazepine use. Given the hypothermia, as well as some prolongation of QT and bradycardia while on Precedex, we will try to manage him without that agent, back on a Ativan drip. As long as his respiratory status remained stable, we will try to avoid the risk of mechanical ventilation. Restraints as needed for patient safety, continue to reassess. (2) Liver failure: Status: Acute Assessment and plan: Repeat LFTs and INR have not shown significant progression of liver failure since admission, despite the uptrend in the bilirubin. He did not qualify for steroid treatment for alcoholic hepatitis. Bilirubin down today from yesterday. Clinically, his exam is still not consistent with acute cholecystitis or biliary obstruction. Ultrasound done this morning and report pending, though the patient was not very cooperative so I am not sure with the quality of the study will be. We will continue to monitor hepatic function. (3) Cirrhosis of liver: Status: Acute Assessment and plan: See above regarding liver failure. Reviewing the admission CT and the patient's labs, does appear the patient does have hepatic cirrhosis, likely secondary to alcoholism in addition to hepatitis C. He should get treated for hepatitis C when he stable off alcohol, we can do that in the clinic. There is also signs of portal hypertension, he should have an endoscopy once he is stable, which can be done as an outpatient. (4) Multifocal lung consolidation: Status: Acute Assessment and plan: Day #4 IV antibiotics to cover aspiration pneumonia. Coronavirus testing negative. Pneumococcus antigen negative. Continue amp sulbactam and doxycycline to complete a 5-day course. (5) Hyperkalemia: Status: Acute Assessment and plan: Not severe at this point. Patient has been on IV fluids with potassium. This was stopped this morning, replaced with D5 half- normal saline. Plan to repeat potassium in the afternoon to make sure is trending back down. He is not renal failure. (6) DVT prophylaxis: Status: Acute Assessment and plan: Platelets stable off Lovenox. Patient is active when he is not highly sedated and he would have a very difficult time tolerating SCDs. Subjective Subjective Patient reports: denies diarrhea, vomiting and fever Interval history since last seen: 24-hour events: Transferred to ICU due to increased agitation and need for escalating doses of benzodiazepines, started on Lorazepam drip COVID 19 test negative, patient transferred from respiratory ICU back to the ICU Started on Precedex with improvement in agitation overnight, but discontinued after patient hypothermic this morning Hypothermia treated with bear hugger, off Precedex, improved Patient currently sedated, not responding to questions. Exam Narrative Exam Narrative: Sedated, stirs with exam but not focal. Sclera icteric, pupils equal and reactive, moist mucous membranes Lungs are clear to auscultation bilaterally normal effort Heart is regular rate and rhythm no murmurs gallops or rubs Abdomen is soft with active bowel sounds, slight response but no grimace with deep palpation right upper quadrant, no organomegaly or other masses palpable. Extremities show no cyanosis, clubbing, or edema. Skin is jaundiced. No large bruises. Objective Objective Clinical Data: Abnormal lab results 12/24/19 12/24/19 12/25/19 Range/Units 10:15 12:10 06:30 WBC 4.29 L (4.4-10.8) k/cumm RBC 3.99 L (4.50-6.00) m/cumm MCV 104.0 H (80-95) fL MCH 34.6 H (27.0-33.0) pg Plt Count 48 L (130-400) x1000/uL MPV 11.8 H (8.0-11.0) fL PT 14.8 H (9.3-11.0) sec INR 1.5 H (0.9-1.1) Potassium (3.5-5.1) mmol/L Chloride (98-107) mmol/L BUN (7-18) mg/dL Glucose (74-106) mg/dL Calcium (8.5-10.1) mg/dL Total Bilirubin 8.9 H (0.2-1.0) mg/dL Conjugated Bilirubin 3.00 H (0.00-0.20) mg/dL AST 122 H (15-37) U/L Alkaline Phosphatase 168 H (46-116) U/L Total Protein 8.5 H (6.4-8.2) g/dL Albumin (3.4-5.0) g/dL 12/25/19 Range/Units 06:30 WBC (4.4-10.8) k/cumm RBC (4.50-6.00) m/cumm MCV (80-95) fL MCH (27.0-33.0) pg Plt Count (130-400) x1000/uL MPV (8.0-11.0) fL PT (9.3-11.0) sec INR (0.9-1.1) Potassium 5.7 H D (3.5-5.1) mmol/L Chloride 109 H (98-107) mmol/L BUN 6 L (7-18) mg/dL Glucose 171 H D (74-106) mg/dL Calcium 8.3 L (8.5-10.1) mg/dL Total Bilirubin 6.1 H (0.2-1.0) mg/dL Conjugated Bilirubin (0.00-0.20) mg/dL AST 101 H (15-37) U/L Alkaline Phosphatase 127 H (46-116) U/L Total Protein (6.4-8.2) g/dL Albumin 2.8 L (3.4-5.0) g/dL Vital Signs Temperature 35.8 C L 12/25/19 11:39 Temperature Source Temporal Artery Scan 12/25/19 09:10 Pulse 66 12/25/19 10:50 Pulse Rhythm Regular 12/24/19 08:15 Pulse 59 L 12/25/19 11:00 Respiratory Rate 13 12/25/19 11:00 Respiratory Effort 12/25/19 08:05 Respiratory Depth Normal 12/25/19 08:05 Respiratory Pattern Normal 12/25/19 08:05 Blood Pressure 91/58 L 12/25/19 10:50 Blood Pressure Mean 66 12/25/19 10:50 Blood Pressure Position Supine 12/25/19 00:00 Pulse Oximetry 99 12/25/19 10:50 Oxygen Delivery Method Room Air 12/25/19 08:05 Oxygen Flow Rate 0 12/25/19 08:05 Pain Level 0 12/25/19 00:00 Comment 12/25/19 07:45 Intake & Output 12/24/19 12/24/19 12/25/19 11:59 23:59 11:59 Intake Total 130 / 1018.167 644.5 / 4088.742 3095.959 / 2146.959 Output Total 950 / 1850 900 / 1850 1800 / 1800 Balance -820 / -831.833 -255.5 / -831.833 346.959 / 346.959 Weight 84.9 kg Intake: IV 130 / 1018.167 644.5 / 7135.033 3715.959 / 2146.959 Output: Urine 950 / 1850 900 / 1850 1800 / 1800 Other: Urine Color Dark Veronica Dark Veronica Light Veronica Urine Appearance Clear Clear Clear Urine Odor Strong Comment also inct Johnson in place and draining Voiding Methods Urinal Urinal Laboratory Results WBC 4.29 k/cumm (4.4-10.8) L 12/25/19 06:30 RBC 3.99 m/cumm (4.50-6.00) L 12/25/19 06:30 Hgb 13.8 g/dL (13.5-17.5) 12/25/19 06:30 Hct 41.5 % (40.0-50.0) 12/25/19 06:30 MCV 104.0 fL (80-95) H 12/25/19 06:30 MCH 34.6 pg (27.0-33.0) H 12/25/19 06:30 MCHC 33.3 g/dL (32.0-36.0) 12/25/19 06:30 RDW 13.6 % (11.8-14.1) 12/25/19 06:30 Plt Count 48 x1000/uL (130-400) L 12/25/19 06:30 MPV 11.8 fL (8.0-11.0) H 12/25/19 06:30 Immature Gran % 0.0 % 12/23/19 06:58 Neutrophils % 55.3 12/23/19 06:58 Lymphocytes % 32.6 12/23/19 06:58 Monocytes % 10.7 12/23/19 06:58 Eosinophils % 1.2 12/23/19 06:58 Basophils % 0.2 12/23/19 06:58 Absolute Neutrophils 2.22 k/cumm (1.2-6.7) 12/23/19 06:58 Absolute Lymphocytes 1.31 k/cumm (1.2-3.4) 12/23/19 06:58 Absolute Monocytes 0.43 k/cumm (0.11-0.7) 12/23/19 06:58 Absolute Eosinophils 0.05 k/cumm (0.0-0.7) 12/23/19 06:58 Absolute Basophils 0.01 k/cumm (0.0-0.2) 12/23/19 06:58 Differential Comment Plt morph reviewed 12/23/19 06:58 RBC Morphology See below 12/23/19 06:58 Macrocytosis 2+ 12/23/19 06:58 PT 14.8 sec (9.3-11.0) H 12/24/19 12:10 INR 1.5 (0.9-1.1) H 12/24/19 12:10 Sodium 140 mmol/L (136-145) 12/25/19 06:30 Potassium 5.7 mmol/L (3.5-5.1) H D 12/25/19 06:30 Chloride 109 mmol/L (98-107) H 12/25/19 06:30 Carbon Dioxide 25.2 mmol/L (21.0-32.0) 12/25/19 06:30 Anion Gap 5.8 mmol/L (3-11) 12/25/19 06:30 BUN 6 mg/dL (7-18) L 12/25/19 06:30 Creatinine 0.74 mg/dL (0.70-1.30) 12/25/19 06:30 Estimated GFR/1.73 m2 >= 60.00 (mL/min/1.73m2) 12/25/19 06:30 Glucose 171 mg/dL (74-106) H D 12/25/19 06:30 Lactate 1.6 mmol/L (0.6-1.4) H 12/22/19 06:31 Calcium 8.3 mg/dL (8.5-10.1) L 12/25/19 06:30 Phosphorus 3.7 mg/dL (2.6-4.7) 12/22/19 06:31 Magnesium 1.9 mg/dL (1.8-2.4) 12/25/19 06:30 Total Bilirubin 6.1 mg/dL (0.2-1.0) H 12/25/19 06:30 Conjugated Bilirubin 3.00 mg/dL (0.00-0.20) H 12/24/19 10:15 AST 101 U/L (15-37) H 12/25/19 06:30 ALT 50 U/L (16-63) 12/25/19 06:30 Alkaline Phosphatase 127 U/L (46-116) H 12/25/19 06:30 Ammonia 16 umol/L (11-32) 12/24/19 10:15 Troponin I < 0.05 ng/Ml (<0.06) 12/22/19 06:31 Total Protein 7.5 g/dL (6.4-8.2) 12/25/19 06:30 Albumin 2.8 g/dL (3.4-5.0) L 12/25/19 06:30 Lipase 240 U/L (73-393) 12/21/19 19:40 Procalcitonin < 0.1 ng/mL 12/21/19 23:30 Urine Color Dark yellow (Yellow) 12/22/19 08:00 Urine Clarity Clear (Clear) 12/22/19 08:00 Urine pH 6.5 (5-8) 12/22/19 08:00 Ur Specific [place] 1.020 (1.005-1.025) 12/22/19 08:00 Urine Protein Negative mg/dL (Negative) 12/22/19 08:00 Urine Ketones Negative mg/dL (Negative) 12/22/19 08:00 Urine Blood Negative (Negative) 12/22/19 08:00 Urine Nitrite Negative (Negative) 12/22/19 08:00 Urine Bilirubin Negative (Negative) 12/22/19 08:00 Urine Urobilinogen >=8.0 EU/dL (Up TO 0.2) 12/22/19 08:00 Ur Leukocyte Esterase Trace (Negative) H 12/22/19 08:00 Urine RBC 0-2 HPF (0-2) 12/22/19 08:00 Urine WBC 5-10 HPF (0-5) 12/22/19 08:00 Ur Epithelial Cells Few HPF (Negative) 12/22/19 08:00 Urine Crystals Negative HPF (Negative) 12/22/19 08:00 Urine Bacteria Rare HPF (Negative) 12/22/19 08:00 Urine Casts Negative LPF (Negative) 12/22/19 08:00 Urine Mucus Moderate (Negative) 12/22/19 08:00 Ur Culture Indicated? Yes 12/22/19 08:00 Urine Glucose Negative mg/dL (Negative) 12/22/19 08:00 Urine Opiates Screen Negative (Negative) 12/21/19 20:30 Urine Methadone Screen Negative (Negative) 12/21/19 20:30 Ur Barbiturates Screen Negative (Negative) 12/21/19 20:30 Ur Tricyclics Screen Negative (Negative) 12/21/19 20:30 Ur Amphetamines Screen Negative (Negative) 12/21/19 20:30 U Benzodiazepines Scrn Negative (Negative) 12/21/19 20:30 Urine Cocaine Screen Negative (Negative) 12/21/19 20:30 Ur THC Screen Negative (Negative) 12/21/19 20:30 Ethyl Alcohol 226.1 mg/dL (<3) 12/22/19 06:31 Coronavirus (PCR) Not detected 12/21/19 22:58 Ur Strep pneumoniae Ag Negative (Negative) 12/22/19 08:00
[2019-12-25] MEDS: DEXTROSE 5%-0.45% SALINE 1,000 ML 125 ML IV (13:35)
--- NOTE | 2019-12-25 13:51 | W.NUTCONSULT ---
Date of service: 12/25/19 Time of Service: 13:51 Nutritional Consult ASSESSMENT: 54 year old male admitted with alcohol withdrawl with delirium, hyperkalemia, cirrhosis of liver, liver failure, multifocal lung consolidation and PNA. In delirium x 4 days with no po intake. BMI wnl for age. At high nutritional risk in view of inadequate nutrient intake for multiple days. Meds include IV fluids, MVI, Thiamin, folic acid. Labs indicate elevated sodium and potassium, low BUN, Cre indicating electrolyte imbalances and compromised kidney function. Estimated Nutrient Needs: 9205-6274 kcal, 67-85 g protein (0.8-1.0 g pro/kg), 2400 ml fluid (28 ml/kg). If unable to meet at least 50% of nutrient needs by 12/26/19, recommend enteral nutrition support. Current vitamin/mineral supplementation providing necessary repletion. NUTRITIONAL DIAGNOSIS: Inadequate nutrient intake due to alcohol withdrawl and delirium INTERVENTION: Consider nutrition support when appropriate MONITORING AND EVALUATION: will make recommendations for enteral nutrition support on 12/26/19 if unable to meet nutrient needs by mouth Time Spent in Nutritional Counseling and Treatment: 0 time spent face to face
[2019-12-25 14:58] LABS: White Blood Cell Count 6.25 k/cumm (4.4-10.8)
[2019-12-25 16:39] LABS: Potassium 4.4 mmol/L (3.5-5.1)
[2019-12-25] MEDS: LORazepam 20 MG/10 ML VIAL ×2 (17:35→17:46)
[2019-12-25] MEDS: PHENobarbital 130 MG/ML VIAL IVP ×2 (18:15→23:08)
--- NOTE | 2019-12-25 19:33 | NUR.NOTE ---
The patient has required increasing amounts of withdrawal medications throughout this shift and nearly constant one on one supervision as he is very labile in his sedation state. The patient became very agitated this evening around 1630 and ended up sitting up to the side of the bed with supervision while I notified Dr. Shore and acquired more medication. The patient was given approximately 29MG ativan in 8hrs from [id number] in addition to his Ativan drip running at 17mg/hr. for several hours this PM and 10mg/hr prior. Patient received a dose of 10mg Ativan IVP around 1700 and this calmed him and put him back into a sedated state. Pt was then given 130mg phenobarbital IVP and has been resting soundly since. When repositioned, the patient did stir and move intentionally but he did not become agitated. The patient becomes aggressive and forceful quickly and needs firm limit setting. Nursing Student Advisor Kacy Galvin, Anesthesia Demetrius Rowley and Natividad Collier RT were notified of possible need for intubation if patient fails phenobarbital. Nursing Note:
[2019-12-26] VITALS (95 sets, daily range): BP systolic 75–163; BP diastolic 40–144; PULSE 59–193; RESP 14–27; TEMP 36.2–37; O2SAT 87–100
[2019-12-26] MEDS: PHENobarbital 130 MG/ML VIAL IVP ×6 (01:05→11:02)
[2019-12-26] MEDS: LORazepam 2 MG/ML VIAL IVP ×10 (03:00→18:00)
[2019-12-26] MEDS: LORazepam 2 MG/ML VIAL IM (03:00)
[2019-12-26] MEDS: DEXTROSE 5%-0.45% SALINE 1,000 ML 125 ML IV (03:23)
[2019-12-26] MEDS: DOXYCYCLINE 100 MG in Normal Saline 100 ML IVPB ×2 (03:27→15:39)
[2019-12-26] MEDS: AMPICILLIN/SULBACTAM 3 GM in Normal Saline 100 ML IVPB ×3 (05:37→18:17)
[2019-12-26] MEDS: Normal Saline Flush 10 ML SYR IVP ×11 (06:00→18:32)
[2019-12-26 07:05] LABS: BUN 7 mg/dL (7-18); CREATININE 0.88 mg/dL (0.70-1.30); Calcium 8.2 mg/dL (8.5-10.1); Glucose 92 mg/dL (74-106)
[2019-12-26 07:06] LABS: Anion Gap 8.2 mmol/L (3-11); Bilirubin, Total 4.6 mg/dL (0.2-1.0); CO2 24.8 mmol/L (21.0-32.0); Chloride 110 mmol/L (98-107); Magnesium 1.5 mg/dL (1.8-2.4); Potassium 3.9 mmol/L (3.5-5.1); Sodium 143 mmol/L (136-145)
[2019-12-26] MEDS: Pantoprazole 40 MG VIAL IVP (08:14)
[2019-12-26] MEDS: Ipratropium/Albuterol 4 GM 120 PUFF INH IH ×3 (08:27→16:15)
--- NOTE | 2019-12-26 08:48 | DI.RAD_ITS ---
EXAM: XR PORTABLE CHEST AP CLINICAL HISTORY: follow up aspiration pneumonia TECHNIQUE: COMPARISON: CT CHEST/ABD/PEL W from 12/21/2019 FINDINGS: Portable AP chest at 0935 hours. Recently obtained chest CT showed increased dependent radiodensity particularly in the lung bases. On today's examination there is slight prominence basilar intrapulmonary markings particularly on the left, with no gross consolidation seen. Cardiac size is within normal limits. No gross pleural effusion seen on this frontal. IMPRESSION: Minimally increased basilar lung markings, no gerardo consolidation identified.
[2019-12-26] MEDS: MAGNESIUM SULFATE 4 GM/100 ML BAG IVPB (10:21)
[2019-12-26] MEDS: Normal Saline 500 ML 30 ML IV (10:27)
--- NOTE | 2019-12-26 11:40 | W.NUTRFU ---
Date of service: 12/26/19 Time of Service: 11:40 Nutritional Follow up NOTE: NPO x 5 days, Kapil continues to be unable to meet nutrient needs by mouth. Recommend nutrition support SUELLEN. If tube feeding appropriate ( in view of hx of aspiration), recommend Jevity 1.2 65cc/hour (total volume 1560, 6.5 cartons daily), flush 150 ml q 6 hours providing total of 1800 kcal, 91 g protein (1.1 g pro/kg), 1930 ml fluid. TPN recommendation to follow if needed. Time Spent in Nutritional Counseling and Treatment: 0 time spent face to face
--- NOTE | 2019-12-26 11:46 | PGE_ITS ---
Date of Service Date of service: 12/26/19 Time of Service: 11:47 Assessment and Plan Assessment and plan (1) Alcohol withdrawal delirium, acute, hyperactive: Status: Acute Assessment and plan: We will check with pharmacy regarding the limitations of his lorazepam drip. We can use higher doses of IV Valium as well as phenobarbital for bouts of agitation. We will monitor both CIWA scale as well as RA SS score. Patient may require intubation to keep him adequately sedated. He is currently on hospital day 5 and I would expect that in the next 24 to 48 hours he should be out of the danger zone for acute alcohol withdrawal and hopefully we can start withdrawing his high-dose benzodiazepines. After discussion with the pharmacist, we feel the patient's been on high dose lorazepam long enough that we need to switch to another benzodiazepine. I am going to put him on program doses of IV Valium 10 mg every 6 hours over the next 24 hours then if he is controlled we will start to wean the dose. We will also use intermittent phenobarbital for severe agitation. Because the patient became aggressive and presented a harm to himself he has been placed in soft limb restraints for his protection as well as that of the staff. (2) Multifocal lung consolidation: Status: Acute Assessment and plan: Patient still requiring supplemental oxygen at a low flow of 1 L/min per nasal cannula. Repeat chest x-ray continues to show bibasilar infiltrates. I am going to broadened his IV antibiotic coverage (3) Cirrhosis of liver: Status: Acute Qualifiers: Ascites presence: without ascites Hepatic cirrhosis type: alcoholic cirrhosis Qualified Code(s): K70.30 - Alcoholic cirrhosis of liver without ascites (4) Hepatitis C: Status: Chronic Assessment and plan: Currently untreated (5) DVT prophylaxis: Status: Acute Assessment and plan: Currently not anticoagulated due to his low platelets. Patient is intolerant of SCDs Subjective Subjective Interval history since last seen: Patient remains restless and agitated. At times he gets aggressive trying to pull out his lines and climbing out of bed. He is requiring high doses of Ativan is now up to 17 mg/h which correlates to 0.2 mg/kg/h. He is also requiring intermittent doses of IV phenobarbital 130 to 260 mg at a time. He has been getting as needed boluses of Ativan up to 8 mg at a time. I have asked pharmacy to look into the cumulative limitations of using an Ativan drip given the risk for lactic acidosis, propylene glycol accumulation, acute tubular necrosis. Patient may need to be switched to a Jarrett sed drip in which case will probably need to be intubated to protect his airway and prevent respiratory failure. Exam Narrative Exam Narrative: At times severely agitated middle-age male who is verbalizing but not making any sense. He is not able to follow commands or answer questions for me. He is moving all 4 extremities with great strength. Lungs are congested with bibasilar rales. No expiratory wheezing or rhonchi. Heart is regular rate and rhythm without murmur rub or gallop. Abdomen is soft nondistended with normal active bowel sounds. Extremities without peripheral cyanosis or edema or wounds. Neurologic he is confused disoriented and a delirium. He verbalizes an does not make any sense. Moves all 4 extremities with great strength. Sensation is intact. GCS = 12 (E4, V3, M5) Objective Objective Clinical Data: Abnormal lab results 12/26/19 Range/Units 06:00 Chloride 110 H (98-107) mmol/L Calcium 8.2 L (8.5-10.1) mg/dL Magnesium 1.5 L (1.8-2.4) mg/dL Total Bilirubin 4.6 H (0.2-1.0) mg/dL Vital Signs Temperature 36.4 C L 12/26/19 07:50 Temperature Source Temporal Artery Scan 12/26/19 07:50 Pulse 87 12/26/19 11:05 Pulse Rhythm Regular 12/24/19 08:15 Pulse 88 12/26/19 11:05 Respiratory Rate 22 12/26/19 11:05 Respiratory Effort Drooling 12/26/19 08:24 Respiratory Depth Shallow 12/26/19 08:24 Respiratory Pattern Normal 12/26/19 08:24 Blood Pressure 115/65 12/26/19 11:05 Blood Pressure Mean 76 12/26/19 11:05 Blood Pressure Position Supine 12/25/19 00:00 Pulse Oximetry 97 12/26/19 11:41 Oxygen Delivery Method Nasal Cannula 12/26/19 11:41 Oxygen Flow Rate 1 12/26/19 11:41 Pain Level 0 12/26/19 04:14 Comment 12/25/19 07:45 Intake & Output 12/25/19 12/25/19 12/26/19 11:59 23:59 11:59 Intake Total 2146.959 / 4194.477 2047.518 / 4194.477 854.5 / 854.5 Output Total 1800 / 2875 1075 / 2875 975 / 975 Balance 346.959 / 1319.477 972.518 / 1319.477 -120.5 / -120.5 Intake: IV 2146.959 / 4194.477 2047.518 / 4194.477 854.5 / 854.5 Output: Urine 1800 / 2875 1075 / 2875 975 / 975 Other: Urine Color Light Veronica Brown Dark Veronica Urine Appearance Clear Clear Clear Comment Monroe in place and draining Monroe in place and draining monroe Laboratory Results WBC 4.29 k/cumm (4.4-10.8) L 12/25/19 06:30 RBC 3.99 m/cumm (4.50-6.00) L 12/25/19 06:30 Hgb 13.8 g/dL (13.5-17.5) 12/25/19 06:30 Hct 41.5 % (40.0-50.0) 12/25/19 06:30 MCV 104.0 fL (80-95) H 12/25/19 06:30 MCH 34.6 pg (27.0-33.0) H 12/25/19 06:30 MCHC 33.3 g/dL (32.0-36.0) 12/25/19 06:30 RDW 13.6 % (11.8-14.1) 12/25/19 06:30 Plt Count 48 x1000/uL (130-400) L 12/25/19 06:30 MPV 11.8 fL (8.0-11.0) H 12/25/19 06:30 Immature Gran % 0.0 % 12/23/19 06:58 Neutrophils % 55.3 12/23/19 06:58 Lymphocytes % 32.6 12/23/19 06:58 Monocytes % 10.7 12/23/19 06:58 Eosinophils % 1.2 12/23/19 06:58 Basophils % 0.2 12/23/19 06:58 Absolute Neutrophils 2.22 k/cumm (1.2-6.7) 12/23/19 06:58 Absolute Lymphocytes 1.31 k/cumm (1.2-3.4) 12/23/19 06:58 Absolute Monocytes 0.43 k/cumm (0.11-0.7) 12/23/19 06:58 Absolute Eosinophils 0.05 k/cumm (0.0-0.7) 12/23/19 06:58 Absolute Basophils 0.01 k/cumm (0.0-0.2) 12/23/19 06:58 Differential Comment Plt morph reviewed 12/23/19 06:58 RBC Morphology See below 12/23/19 06:58 Macrocytosis 2+ 12/23/19 06:58 PT 14.8 sec (9.3-11.0) H 12/24/19 12:10 INR 1.5 (0.9-1.1) H 12/24/19 12:10 Sodium 143 mmol/L (136-145) 12/26/19 06:00 Potassium 3.9 mmol/L (3.5-5.1) 12/26/19 06:00 Chloride 110 mmol/L (98-107) H 12/26/19 06:00 Carbon Dioxide 24.8 mmol/L (21.0-32.0) 12/26/19 06:00 Anion Gap 8.2 mmol/L (3-11) 12/26/19 06:00 BUN 7 mg/dL (7-18) 12/26/19 06:00 Creatinine 0.88 mg/dL (0.70-1.30) 12/26/19 06:00 Estimated GFR/1.73 m2 >= 60.00 (mL/min/1.73m2) 12/26/19 06:00 Glucose 92 mg/dL (74-106) D 12/26/19 06:00 Lactate 1.6 mmol/L (0.6-1.4) H 12/22/19 06:31 Calcium 8.2 mg/dL (8.5-10.1) L 12/26/19 06:00 Phosphorus 3.7 mg/dL (2.6-4.7) 12/22/19 06:31 Magnesium 1.5 mg/dL (1.8-2.4) L 12/26/19 06:00 Total Bilirubin 4.6 mg/dL (0.2-1.0) H 12/26/19 06:00 Conjugated Bilirubin 3.00 mg/dL (0.00-0.20) H 12/24/19 10:15 AST 101 U/L (15-37) H 12/25/19 06:30 ALT 50 U/L (16-63) 12/25/19 06:30 Alkaline Phosphatase 127 U/L (46-116) H 12/25/19 06:30 Ammonia 16 umol/L (11-32) 12/24/19 10:15 Troponin I < 0.05 ng/Ml (<0.06) 12/22/19 06:31 Total Protein 7.5 g/dL (6.4-8.2) 12/25/19 06:30 Albumin 2.8 g/dL (3.4-5.0) L 12/25/19 06:30 Lipase 240 U/L (73-393) 12/21/19 19:40 Procalcitonin < 0.1 ng/mL 12/21/19 23:30 Urine Color Dark yellow (Yellow) 12/22/19 08:00 Urine Clarity Clear (Clear) 12/22/19 08:00 Urine pH 6.5 (5-8) 12/22/19 08:00 Ur Specific [place] 1.020 (1.005-1.025) 12/22/19 08:00 Urine Protein Negative mg/dL (Negative) 12/22/19 08:00 Urine Ketones Negative mg/dL (Negative) 12/22/19 08:00 Urine Blood Negative (Negative) 12/22/19 08:00 Urine Nitrite Negative (Negative) 12/22/19 08:00 Urine Bilirubin Negative (Negative) 12/22/19 08:00 Urine Urobilinogen >=8.0 EU/dL (Up TO 0.2) 12/22/19 08:00 Ur Leukocyte Esterase Trace (Negative) H 12/22/19 08:00 Urine RBC 0-2 HPF (0-2) 12/22/19 08:00 Urine WBC 5-10 HPF (0-5) 12/22/19 08:00 Ur Epithelial Cells Few HPF (Negative) 12/22/19 08:00 Urine Crystals Negative HPF (Negative) 12/22/19 08:00 Urine Bacteria Rare HPF (Negative) 12/22/19 08:00 Urine Casts Negative LPF (Negative) 12/22/19 08:00 Urine Mucus Moderate (Negative) 12/22/19 08:00 Ur Culture Indicated? Yes 12/22/19 08:00 Urine Glucose Negative mg/dL (Negative) 12/22/19 08:00 Urine Opiates Screen Negative (Negative) 12/21/19 20:30 Urine Methadone Screen Negative (Negative) 12/21/19 20:30 Ur Barbiturates Screen Negative (Negative) 12/21/19 20:30 Ur Tricyclics Screen Negative (Negative) 12/21/19 20:30 Ur Amphetamines Screen Negative (Negative) 12/21/19 20:30 U Benzodiazepines Scrn Negative (Negative) 12/21/19 20:30 Urine Cocaine Screen Negative (Negative) 12/21/19 20:30 Ur THC Screen Negative (Negative) 12/21/19 20:30 Ethyl Alcohol 226.1 mg/dL (<3) 12/22/19 06:31 Coronavirus (PCR) Not detected 12/21/19 22:58 Urine Legionella Ag Negative (Negative) 12/22/19 08:00 Ur Strep pneumoniae Ag Negative (Negative) 12/22/19 08:00
--- NOTE | 2019-12-26 12:00 | PDOC.CMPRO ---
- If Service Date Differs Date of service: 12/26/19 Time of Service: 12:00 Care Management Progress Note S/O: Kapil is confused, his CIWA scores continue to be in the 30's and he is not able to participate is an assessment at this time. Lucho continues to need IV medications to treat symptoms of withdrawal. Concern for possible intubation if there is no improvement per provider. CM reviewed patients chart and reviewed patient at interdisciplinary rounds. CM will continue to follow the patient ongoing assessment for discharge planning and needs. A:Lucho is a 54 year old male admitted for pneumonia r/o Covid 19 which is negative. P:Disposition to be determined, Lucho remains ICU level of care today. CM to continue to assess and coordinate discharge needs.
[2019-12-26] MEDS: diazePAM 10 MG/2 ML SYR IVP ×12 (12:49→18:34)
[2019-12-26] MEDS: Furosemide 20 MG/2 ML VIAL IVP (13:15)
[2019-12-26] MEDS: DEXTROSE 5%-0.45% SALINE 1,000 ML 75 ML IV (17:38)
[2019-12-26] MEDS: PROPOFOL 1,000 MG/100 ML BTL 42 MG (18:51)
--- NOTE | 2019-12-26 19:09 | ROE_ITS ---
Date of service: 12/26/19 Time of Service: 19:09 Operative Note Operative Note DATE OF PROCEDURE: 12/26/19 PRE-OP DIAGNOSIS: acute alcohol withdrawal requiring high dose sedation POST-OP DIAGNOSIS: same PROCEDURE: intubation and mechanical ventilation SURGEON: Chava Brewer ASSISTING SURGEON: Rosa Maria Renee ANESTHESIA: other (RSI) Patient was transported to: no change Patient's condition: stable Indications: need for high dose sedatives including high dose benzodiazepines and phenobarbital to control acute alcohol withdrawal w/ delirium Procedure Description: Patient was prepped for sedation and intubation by identification of patient, inspection of his oropharynx (full lower teeth, absent of any upper teeth), oropharyngeal white mucous. Patient was preoxyge nated w/ Ambu bag valve mask to SPO2 of 100%. He was then sedated w/ propofol 200 mg IVP which was then flushed through his iv w/ saline. He then was given Rocuronium 50 mg IVP which was also flushed w/ saline. He was continued to be supported w/ ambu-bag valve mask ventilation until he was no longer taking respirations on his own. First attempt at intubation was unsuccessful d/t mucous obscured the opening to his larynx. This was then suctioned after he was oxygenated w/ ambu-bag valve mask. With his oxygen saturation at 100% 2nd attempt was successful and ET was seen to pass through the vocal cords into the trachea below the larynx at level of 23 cm at the lips. A 7.5 ET tube was used. Good bilateral rise of the chest was seen and breath sounds were heard bilaterally, oxygen saturation is 100% and ETCO2 is 24. ET was secured by R.T. w/ commercial tracheal tube higuera. CXR is pending at this time.
--- NOTE | 2019-12-26 19:30 | DI.RAD_ITS ---
EXAM: XR PORTABLE CHEST AP CLINICAL HISTORY: post intubation TECHNIQUE: 2D digital imaging was performed. COMPARISON: XR PORTABLE CHEST AP from 12/26/2019 FINDINGS: MEDIASTINUM: Normal. HEART: Normal. PULMONARY VASCULATURE: Normal. LUNGS: Clear. PLEURAL SPACE: No pleural effusion or pneumothorax. BONE:Normal. OTHER FINDINGS:There has been interval placement of an endotracheal tube. The tip of the tube is 5.6 cm from the jose maria in good position. IMPRESSION: No acute pulmonary findings. Tip of the endotracheal tube is in good position 5.6 cm from the jose maria. DATA REPOSITORY: RADIATION DOSE DELIVERED:
[2019-12-26 19:48] LABS: HCO3 24 mmol/L (22-28); pCO2 38 mmHg (34-47); pH 7.41 (7.35-7.45); pO2 78 mmHg (83-108); sO2 96 % (94-98); tCO2 22 mmol/L (22-29)
[2019-12-26 19:49] LABS: Site Right Radial
--- NOTE | 2019-12-26 19:49 | DI.VRAD_ITS ---
PROCEDURE INFORMATION: Exam: XR Chest, 1 View Exam date and time: 12/26/2019 7:31 PM Age: 54 years old Clinical indication: Other: Post intubation TECHNIQUE: Imaging protocol: XR of the chest Views: 1 view. COMPARISON: CR XR PORTABLE CHEST AP 12/26/2019 8:35 AM FINDINGS: Tubes, catheters and devices: The ET tube tip is approximately the 5.8 cm above the jose maria. Lungs: Unremarkable. No consolidation. Pleural space: Unremarkable. No pleural effusion. No pneumothorax. Heart/Mediastinum: Unremarkable. No cardiomegaly. Bones/joints: Unremarkable. Other findings: The patient is intubated. IMPRESSION: Endotracheal tube tip approximately 5.6 cm above the jose maria. Dictated and Authenticated by: Son Sneed MD. Ordering:[facility] Osman Larsen MD
[2019-12-26 19:50] LABS: FIO2 50 %
[2019-12-26] MEDS: PROPOFOL 1,000 MG/100 ML BTL 38.205 MG IVPB (20:34)
[2019-12-26] MEDS: PROPOFOL 1,000 MG/100 ML BTL 45.9 MG IVPB ×2 (20:39→22:59)
--- NOTE | 2019-12-26 21:49 | NUR.NOTE ---
[id number]-DR. Brewer has been notified that pt is not at all controlled on current medications. [facility] NURSE is now here to assist with intubation. pt given RSI meds, propofol, ALEXUS. intubated with 7.[address] Brewer. placed on ventilator at AC, rate of 15. TV-480, Fio2 of 40%, peep-5. VSS afterwards. pt placed on a propofol gtt at 75mcg/kg/min. present during intubation was Kenzie Longo RN, Dr. Brewer, Cheyenne Zheng CRNA, Louisa Duenas RN and Flex Freitas RN
[2019-12-26] MEDS: Normal Saline 500 ML 1000 ML IV (23:45)
[2019-12-27] VITALS (133 sets, daily range): BP systolic 77–107; BP diastolic 39–68; PULSE 60–97; RESP 13–19; TEMP 35.6–37; O2SAT 94–100
[2019-12-27] MEDS: AMPICILLIN/SULBACTAM 3 GM in Normal Saline 100 ML IVPB ×5 (00:13→23:39)
[2019-12-27] MEDS: Normal Saline Flush 10 ML SYR IVP ×3 (00:32→12:50)
[2019-12-27] MEDS: DOXYCYCLINE 100 MG in Normal Saline 100 ML IVPB ×2 (03:25→16:35)
[2019-12-27] MEDS: PROPOFOL 1,000 MG/100 ML BTL 17.829 MG IVPB (03:30)
[2019-12-27 06:39] LABS: Absolute Basophil Count 0.01 k/cumm (0.0-0.2); Absolute Lymphocyte Count 1.31 k/cumm (1.2-3.4); Absolute Neutrophil Count 4.18 k/cumm (1.2-6.7); Basophils % 0.2; Eosinophils % 1.6; HCT 37.2 % (40.0-50.0); HGB 12.3 g/dL (13.5-17.5); Lymphocytes % 20.5; Mean Corp. HGB Concentration 33.1 g/dL (32.0-36.0); Mean Platelet Volume 11.9 fL (8.0-11.0); Monocytes % 12.5; Neutrophils % 65.2; RBC 3.51 m/cumm (4.50-6.00); RBC Distribution Width 14.4 % (11.8-14.1)
[2019-12-27 06:57] LABS: Macrocytosis 2+; Platelet Count 67 x1000/uL (130-400)
[2019-12-27 07:02] LABS: ALT 48 U/L (16-63); AST 98 U/L (15-37); Albumin 2.6 g/dL (3.4-5.0); Alkaline Phosphatase 106 U/L (46-116); Anion Gap 9.5 mmol/L (3-11); BUN 8 mg/dL (7-18); Bilirubin, Total 3.5 mg/dL (0.2-1.0); C-Reactive Protein 1.57 mg/dL (0.0-0.3); CO2 24.5 mmol/L (21.0-32.0); CREATININE 1.42 mg/dL (0.70-1.30); Calcium 7.9 mg/dL (8.5-10.1); Chloride 109 mmol/L (98-107); Estimated GFR 51.57 (mL/min/1.73m2); Glucose 114 mg/dL (74-106); Magnesium 1.7 mg/dL (1.8-2.4); NT-proBNP 49 pg/mL (<300); Potassium 3.2 mmol/L (3.5-5.1); Sodium 143 mmol/L (136-145); Total Protein 6.9 g/dL (6.4-8.2)
[2019-12-27 07:15] LABS: Procalcitonin 0.1 ng/mL
[2019-12-27 07:37] LABS: BE -1.3 mmol/L (-3-3); HCO3 24 mmol/L (22-28); Site Right Radial; pCO2 41 mmHg (34-47); pH 7.38 (7.35-7.45); pO2 111 mmHg (83-108); sO2 99 % (94-98); tCO2 22 mmol/L (22-29)
[2019-12-27 07:38] LABS: FIO2 50 %
[2019-12-27] MEDS: Pantoprazole 40 MG VIAL IVP (08:23)
[2019-12-27] MEDS: Budesonide/Formoterol 160/4.5 6 GM 60 PUFF INH IH (09:07)
--- NOTE | 2019-12-27 09:39 | PDOC.CMPRO ---
- If Service Date Differs Date of service: 12/27/19 Time of Service: 09:39 Care Management Progress Note S/O: Kapil is now intubated r/t to acute alcohol withdrawal and need for increased medication to treat the symptoms. CM to continue to assess for disposition needs. HIPPA on file with his mother listed. A:Lucho is a 54 year old male admitted for pneumonia r/o Covid 19 which is negative. P:Disposition to be determined, Lucho remains ICU level of care today. CM to continue to assess and coordinate discharge needs.
[2019-12-27] MEDS: POTASSIUM CHLORIDE/D5-0.45NACL 1,000 ML 150 MEQ IV ×2 (09:51→16:41)
[2019-12-27] MEDS: POTASSIUM CHLORIDE 20 MEQ/100 ML BAG 25 MEQ IVPB (09:53)
[2019-12-27] MEDS: PROPOFOL 1,000 MG/100 ML BTL 12.801 MG IVPB (10:00)
[2019-12-27] MEDS: Normal Saline 500 ML 30 ML IV (12:50)
--- NOTE | 2019-12-27 13:31 | PGE_ITS ---
Date of Service Date of service: 12/27/19 Time of Service: 13:31 Assessment and Plan Assessment and plan (1) Alcohol withdrawal delirium, acute, hyperactive: Status: Acute Assessment and plan: Severe acute alcohol withdrawal with delirium requiring heavy sedation necessitating intubation yesterday evening. He remains on propofol drip with a goal to keep him lightly sedated. Hopefully will be able to do a weaning trial tomorrow and possibly extubate him.. (2) Multifocal lung consolidation: Status: Acute Assessment and plan: We will repeat his chest x-ray in the morning. Continue current antibiotic treat with Unasyn and doxycycline. There is no improvement in his infiltrates and I will plan for changing his antibiotics however at this time he is afebrile and has no (3) Cirrhosis of liver: Status: Acute Assessment and plan: Patient has evidence of severe liver disease including icterus and bilirubinuria. However his total bilirubin has diminished over the his hospital course from a high of 8.9 down to 3.5 today. His coagulation studies are abnormal with an elevated pro time and INR. Qualifiers: Hepatic cirrhosis type: alcoholic cirrhosis Ascites presence: without ascites Qualified Code(s): K70.30 - Alcoholic cirrhosis of liver without ascites (4) Hepatitis C: Status: Chronic Assessment and plan: Currently untreated. I will refer him for treatment upon discharge from the hospital Qualifiers: Viral hepatitis chronicity: chronic Hepatic coma status: without hepatic coma Qualified Code(s): B18.2 - Chronic viral hepatitis C (5) DVT prophylaxis: Status: Acute Assessment and plan: Currently not anticoagulated due to his low platelets. CORBIN hightower and SCDs have been applied Subjective Subjective Interval history since last seen: Hospital day #7, ventilator day #2. Patient was hospitalized for acute alcohol intoxication and aspiration pneumonia. He is currently treated with Unasyn and doxycycline. He remains afebrile. Despite maximum treatment for acute alcohol withdrawal with high doses of Valium as well as an Ativan drip and as needed phenobarbital patient was unable to be controlled for his agitation. He ended up getting intubated yesterday evening and is on a propofol drip. His blood pressures have been labile and at times his propofol drip had to be decreased or even shut off temporarily. He does wake often gets agitated when the propofol drip is weaned down. He is now moderately to heavily sedated and responsive not only to sternal rub. His propofol drip is going at 40 mcg/kg/minute. I am asking nursing to wean his propofol to keep him lightly sedated. Exam Narrative Exam Narrative: Middle-age male who looks older than his stated age of 54. He is currently intubated nonverbal and heavily sedated. Blood pressures are running in the mid 90s systolic with a map in the low to mid 60s. Heart rate is regular sinus rhythm at a rate of 68 bpm. SPO2 is 96%. He is currently on AC 15 breaths/min. He is currently breathing at 15 breaths/min his tidal volumes 480. FiO2 is 30% and his PEEP is 5 cm. His peak inspiratory pressure is 15 cm. Lungs are clear to auscultation anteriorly in the upper and midlung zones with diminished breath sounds at the bases. No rhonchi or wheezes. Heart regular rate and rhythm. No audible murmur rub or gallop. Abdomen soft nondistended with active bowel sounds. Extremities without peripheral cyanosis or edema. Neurologically he is heavily sedated only arouses with deep sternal rub. Pupils are pinpoint but reactive. He does not open his eyes or look at me with sternal rub. Objective Objective Clinical Data: Abnormal lab results 12/26/19 12/27/19 12/27/19 Range/Units 19:34 06:10 06:10 RBC 3.51 L (4.50-6.00) m/cumm Hgb 12.3 L (13.5-17.5) g/dL Hct 37.2 L (40.0-50.0) % MCV 106.0 H (80-95) fL MCH 35.0 H (27.0-33.0) pg RDW 14.4 H (11.8-14.1) % Plt Count 67 L (130-400) x1000/uL MPV 11.9 H (8.0-11.0) fL Absolute Monocytes 0.80 H (0.11-0.7) k/cumm ABG pO2 78 L (83-108) mmHg ABG O2 Saturation (94-98) % Potassium 3.2 L (3.5-5.1) mmol/L Chloride 109 H (98-107) mmol/L Creatinine 1.42 H (0.70-1.30) mg/dL Glucose 114 H (74-106) mg/dL Calcium 7.9 L (8.5-10.1) mg/dL Magnesium 1.7 L (1.8-2.4) mg/dL Total Bilirubin 3.5 H (0.2-1.0) mg/dL AST 98 H (15-37) U/L C-Reactive Protein 1.57 H (0.0-0.3) mg/dL Albumin 2.6 L (3.4-5.0) g/dL 12/27/19 Range/Units 07:15 RBC (4.50-6.00) m/cumm Hgb (13.5-17.5) g/dL Hct (40.0-50.0) % MCV (80-95) fL MCH (27.0-33.0) pg RDW (11.8-14.1) % Plt Count (130-400) x1000/uL MPV (8.0-11.0) fL Absolute Monocytes (0.11-0.7) k/cumm ABG pO2 111 H (83-108) mmHg ABG O2 Saturation 99 H (94-98) % Potassium (3.5-5.1) mmol/L Chloride (98-107) mmol/L Creatinine (0.70-1.30) mg/dL Glucose (74-106) mg/dL Calcium (8.5-10.1) mg/dL Magnesium (1.8-2.4) mg/dL Total Bilirubin (0.2-1.0) mg/dL AST (15-37) U/L C-Reactive Protein (0.0-0.3) mg/dL Albumin (3.4-5.0) g/dL Vital Signs Temperature 36.0 C L 12/27/19 12:00 Temperature Source Tympanic 12/27/19 12:00 Pulse 68 12/27/19 13:12 Pulse Rhythm Regular 12/24/19 08:15 Pulse 69 12/27/19 13:12 Respiratory Rate 13 12/27/19 13:12 Respiratory Effort 12/27/19 13:00 Respiratory Depth Shallow 12/27/19 08:33 Respiratory Pattern Normal 12/27/19 08:33 Blood Pressure 100/55 L 12/27/19 13:12 Blood Pressure Mean 65 12/27/19 13:12 Blood Pressure Position Supine 03/25/20 08:33 Pulse Oximetry 96 12/27/19 13:12 Respiratory End-tidal CO2 22 12/27/19 13:12 Oxygen Delivery Method Mechanical Ventilator 12/27/19 08:33 Oxygen Flow Rate 0 12/27/19 08:33 Fraction of Inspired Oxygen (FIO2) 30 12/27/19 11:33 Pain Level 0 12/27/19 08:33 Comment 12/25/19 07:45 Intake & Output 12/26/19 12/27/19 12/27/19 23:59 11:59 23:59 Intake Total 567.197 / 2521.697 2075.708 / 2103.571 27.863 / 2103.571 Output Total 2400 / 3375 175 / 175 Balance -1832.803 / -775.994 5502.708 / 1928.571 27.863 / 1928.571 Intake: IV 567.197 / 2521.697 2075.708 / 2103.571 27.863 / 2103.571 Output: Urine 2400 / 3375 175 / 175 Other: Urine Color Dark Héctor Dark Héctor Urine Appearance Clear Clear Comment monroe to gravity with dark héctor urine monroe patent and draining dark héctor urine Laboratory Results WBC 6.40 k/cumm (4.4-10.8) 12/27/19 06:10 RBC 3.51 m/cumm (4.50-6.00) L 12/27/19 06:10 Hgb 12.3 g/dL (13.5-17.5) L 12/27/19 06:10 Hct 37.2 % (40.0-50.0) L 12/27/19 06:10 MCV 106.0 fL (80-95) H 12/27/19 06:10 MCH 35.0 pg (27.0-33.0) H 12/27/19 06:10 MCHC 33.1 g/dL (32.0-36.0) 12/27/19 06:10 RDW 14.4 % (11.8-14.1) H 12/27/19 06:10 Plt Count 67 x1000/uL (130-400) L 12/27/19 06:10 MPV 11.9 fL (8.0-11.0) H 12/27/19 06:10 Immature Gran % 0.0 % 12/27/19 06:10 Neutrophils % 65.2 12/27/19 06:10 Lymphocytes % 20.5 12/27/19 06:10 Monocytes % 12.5 12/27/19 06:10 Eosinophils % 1.6 12/27/19 06:10 Basophils % 0.2 12/27/19 06:10 Absolute Neutrophils 4.18 k/cumm (1.2-6.7) 12/27/19 06:10 Absolute Lymphocytes 1.31 k/cumm (1.2-3.4) 12/27/19 06:10 Absolute Monocytes 0.80 k/cumm (0.11-0.7) H 12/27/19 06:10 Absolute Eosinophils 0.10 k/cumm (0.0-0.7) 12/27/19 06:10 Absolute Basophils 0.01 k/cumm (0.0-0.2) 12/27/19 06:10 Differential Comment Plt morph reviewed 12/23/19 06:58 RBC Morphology See below 12/27/19 06:10 Macrocytosis 2+ 12/27/19 06:10 PT 14.8 sec (9.3-11.0) H 12/24/19 12:10 INR 1.5 (0.9-1.1) H 12/24/19 12:10 ABG Sample Site Right radial 12/27/19 07:15 ABG pH 7.38 (7.35-7.45) 12/27/19 07:15 ABG pCO2 41 mmHg (34-47) 12/27/19 07:15 ABG pO2 111 mmHg (83-108) H 12/27/19 07:15 ABG HCO3 24 mmol/L (22-28) 12/27/19 07:15 ABG Total CO2 22 mmol/L (22-29) 12/27/19 07:15 ABG O2 Saturation 99 % (94-98) H 12/27/19 07:15 ABG Base Excess -1.3 mmol/L (-3-3) 12/27/19 07:15 Oxygen Liter Flow Ac15 480 peep5 L 12/26/19 19:34 FiO2 50 % 12/27/19 07:15 Sodium 143 mmol/L (136-145) 12/27/19 06:10 Potassium 3.2 mmol/L (3.5-5.1) L 12/27/19 06:10 Chloride 109 mmol/L (98-107) H 12/27/19 06:10 Carbon Dioxide 24.5 mmol/L (21.0-32.0) 12/27/19 06:10 Anion Gap 9.5 mmol/L (3-11) 12/27/19 06:10 BUN 8 mg/dL (7-18) 12/27/19 06:10 Creatinine 1.42 mg/dL (0.70-1.30) H 12/27/19 06:10 Estimated GFR/1.73 m2 51.57 (mL/min/1.73m2) 12/27/19 06:10 Glucose 114 mg/dL (74-106) H 12/27/19 06:10 Lactate 1.6 mmol/L (0.6-1.4) H 12/22/19 06:31 Calcium 7.9 mg/dL (8.5-10.1) L 12/27/19 06:10 Phosphorus 3.7 mg/dL (2.6-4.7) 12/22/19 06:31 Magnesium 1.7 mg/dL (1.8-2.4) L 12/27/19 06:10 Total Bilirubin 3.5 mg/dL (0.2-1.0) H 12/27/19 06:10 Conjugated Bilirubin 3.00 mg/dL (0.00-0.20) H 12/24/19 10:15 AST 98 U/L (15-37) H 12/27/19 06:10 ALT 48 U/L (16-63) 12/27/19 06:10 Alkaline Phosphatase 106 U/L (46-116) 12/27/19 06:10 Ammonia 16 umol/L (11-32) 12/24/19 10:15 Troponin I < 0.05 ng/Ml (<0.06) 12/22/19 06:31 C-Reactive Protein 1.57 mg/dL (0.0-0.3) H 12/27/19 06:10 NT-Pro-B Natriuret Pep 49 pg/mL (<300) 12/27/19 06:10 Total Protein 6.9 g/dL (6.4-8.2) 12/27/19 06:10 Albumin 2.6 g/dL (3.4-5.0) L 12/27/19 06:10 Lipase 240 U/L (73-393) 12/21/19 19:40 Procalcitonin 0.1 ng/mL 12/27/19 06:10 Urine Color Dark yellow (Yellow) 12/22/19 08:00 Urine Clarity Clear (Clear) 12/22/19 08:00 Urine pH 6.5 (5-8) 12/22/19 08:00 Ur Specific [place] 1.020 (1.005-1.025) 12/22/19 08:00 Urine Protein Negative mg/dL (Negative) 12/22/19 08:00 Urine Ketones Negative mg/dL (Negative) 12/22/19 08:00 Urine Blood Negative (Negative) 12/22/19 08:00 Urine Nitrite Negative (Negative) 12/22/19 08:00 Urine Bilirubin Negative (Negative) 12/22/19 08:00 Urine Urobilinogen >=8.0 EU/dL (Up TO 0.2) 12/22/19 08:00 Ur Leukocyte Esterase Trace (Negative) H 12/22/19 08:00 Urine RBC 0-2 HPF (0-2) 12/22/19 08:00 Urine WBC 5-10 HPF (0-5) 12/22/19 08:00 Ur Epithelial Cells Few HPF (Negative) 12/22/19 08:00 Urine Crystals Negative HPF (Negative) 12/22/19 08:00 Urine Bacteria Rare HPF (Negative) 12/22/19 08:00 Urine Casts Negative LPF (Negative) 12/22/19 08:00 Urine Mucus Moderate (Negative) 12/22/19 08:00 Ur Culture Indicated? Yes 12/22/19 08:00 Urine Glucose Negative mg/dL (Negative) 12/22/19 08:00 Urine Opiates Screen Negative (Negative) 12/21/19 20:30 Urine Methadone Screen Negative (Negative) 12/21/19 20:30 Ur Barbiturates Screen Negative (Negative) 12/21/19 20:30 Ur Tricyclics Screen Negative (Negative) 12/21/19 20:30 Ur Amphetamines Screen Negative (Negative) 12/21/19 20:30 U Benzodiazepines Scrn Negative (Negative) 12/21/19 20:30 Urine Cocaine Screen Negative (Negative) 12/21/19 20:30 Ur THC Screen Negative (Negative) 12/21/19 20:30 Ethyl Alcohol 226.1 mg/dL (<3) 12/22/19 06:31 Coronavirus (PCR) Not detected 12/21/19 22:58 L.pneumophila Antibody Negative (Negative) 12/21/19 23:35 Urine Legionella Ag Negative (Negative) 12/22/19 08:00 Ur Strep pneumoniae Ag Negative (Negative) 12/22/19 08:00
[2019-12-27 14:50] LABS: BUN 9 mg/dL (7-18); CREATININE 1.11 mg/dL (0.70-1.30); Calcium 7.9 mg/dL (8.5-10.1); Chloride 109 mmol/L (98-107); Glucose 106 mg/dL (74-106); Potassium 3.5 mmol/L (3.5-5.1); Sodium 142 mmol/L (136-145)
--- NOTE | 2019-12-27 16:05 | DI.RAD_ITS ---
EXAM: XR PORTABLE CHEST AP POST LINE CLINICAL HISTORY: NG tube placement confirmation TECHNIQUE: 2D digital imaging was performed. COMPARISON: XR PORTABLE CHEST AP POST LINE from 12/26/2019 FINDINGS: MEDIASTINUM: Normal. HEART: Normal. PULMONARY VASCULATURE: Normal. LUNGS: There is a left basilar infiltrate present. PLEURAL SPACE: No pleural effusion or pneumothorax. BONE:Degenerative changes are seen in the spine. OTHER FINDINGS:The endotracheal tube tip is 4.4 cm from the jose maria. The tip of the nasogastric tube is in the stomach. IMPRESSION: 1. The tip of the nasogastric tube is in the stomach. 2. Development of a left basilar infiltrate. 3. Endotracheal tube tip is 4.4 cm from the jose maria. DATA REPOSITORY: RADIATION DOSE DELIVERED:
--- NOTE | 2019-12-27 16:12 | DI.VRAD_ITS ---
PROCEDURE INFORMATION: Exam: XR Chest, 1 View Exam date and time: 12/27/2019 4:05 PM Age: 54 years old Clinical indication: Device placement; Patient HX: Ng tube placement comfirmation TECHNIQUE: Imaging protocol: XR of the chest Views: 1 view. COMPARISON: CR XR PORTABLE CHEST AP POST LINE 12/26/2019 7:28 PM FINDINGS: Tubes, catheters and devices: NG tube tip in the stomach. Endotracheal tube tip approximately 4 cm above the jose maria. Lungs: Minimal bibasilar opacities. Pleural space: No definite pleural effusion. No pneumothorax. Heart/Mediastinum: Unremarkable. No cardiomegaly. Bones/joints: No acute findings. IMPRESSION: NG tube tip in the stomach. Dictated and Authenticated by: Pedro Pablo Floyd MD. [facility] Osman Larsen MD
[2019-12-27] MEDS: PROPOFOL 1,000 MG/100 ML BTL 20.376 MG IVPB ×2 (16:33→23:35)
[2019-12-27] MEDS: MAGNESIUM SULFATE 8.12 MEQ, MULTIVITAMIN 10 ML, THIAMINE 100 MG, FOLIC ACID 1 MG in Nor... 169 MG IV (17:27)
[2019-12-28] VITALS (142 sets, daily range): BP systolic 96–166; BP diastolic 49–83; PULSE 70–114; RESP 15–33; TEMP 36.5–37.7; O2SAT 83–98
[2019-12-28] MEDS: PROPOFOL 1,000 MG/100 ML BTL 20.376 MG IVPB (00:50)
[2019-12-28] MEDS: DOXYCYCLINE 100 MG in Normal Saline 100 ML IVPB ×2 (03:44→16:11)
[2019-12-28] MEDS: PROPOFOL 1,000 MG/100 ML BTL 40 MG IVPB (05:48)
[2019-12-28] MEDS: POTASSIUM CHLORIDE/D5-0.45NACL 1,000 ML 150 MEQ IV ×3 (05:51→18:48)
[2019-12-28 06:45] LABS: Abs Immature Grans 0.01 k/cumm (0.0-0.09); Absolute Basophil Count 0.01 k/cumm (0.0-0.2); Absolute Eosinophil Count 0.07 k/cumm (0.0-0.7); Absolute Lymphocyte Count 1.34 k/cumm (1.2-3.4); Basophils % 0.2; Eosinophils % 1.2; HCT 35.8 % (40.0-50.0); HGB 11.8 g/dL (13.5-17.5); Immature Grans % 0.2 %; Lymphocytes % 22.2; Mean Corpuscular Hemoglobin 34.7 pg (27.0-33.0); Mean Corpuscular Volume 105.3 fL (80-95); Mean Platelet Volume 11.6 fL (8.0-11.0); Monocytes % 13.3; Neutrophils % 62.9; RBC Distribution Width 14.6 % (11.8-14.1); White Blood Cell Count 6.03 k/cumm (4.4-10.8)
[2019-12-28 06:55] LABS: Anion Gap 7.5 mmol/L (3-11); BUN 8 mg/dL (7-18); CO2 24.5 mmol/L (21.0-32.0); CREATININE 0.93 mg/dL (0.70-1.30); Chloride 111 mmol/L (98-107); Glucose 112 mg/dL (74-106); Potassium 3.7 mmol/L (3.5-5.1); Sodium 143 mmol/L (136-145)
[2019-12-28 07:02] LABS: ALT 49 U/L (16-63); AST 92 U/L (15-37); Albumin 2.4 g/dL (3.4-5.0); Alkaline Phosphatase 103 U/L (46-116); Bilirubin, Direct 1.63 mg/dL (0.00-0.20); Bilirubin, Total 2.4 mg/dL (0.2-1.0); Total Protein 6.4 g/dL (6.4-8.2)
[2019-12-28 07:13] LABS: Platelet Count 62 x1000/uL (130-400)
[2019-12-28 07:14] LABS: Macrocytosis 2+; Polychromasia Present
[2019-12-28 07:40] LABS: BE -0.7 mmol/L (-3-3); HCO3 24 mmol/L (22-28); pCO2 35 mmHg (34-47); pH 7.44 (7.35-7.45); pO2 60 mmHg (83-108); sO2 92 % (94-98); tCO2 22 mmol/L (22-29)
[2019-12-28 07:44] LABS: FIO2 21 %; Site Right Radial
[2019-12-28] MEDS: Budesonide/Formoterol 160/4.5 6 GM 60 PUFF INH IH ×2 (07:53→21:17)
--- NOTE | 2019-12-28 08:30 | DI.RAD_ITS ---
EXAM: XR PORTABLE CHEST AP CLINICAL HISTORY: Follow-up pneumonia, status post intubation TECHNIQUE: 2D digital imaging was performed. COMPARISON: XR PORTABLE CHEST AP POST LINE from 12/27/2019 FINDINGS: MEDIASTINUM: Normal. HEART: Normal. PULMONARY VASCULATURE: Normal. LUNGS: There is again an infiltrate seen in the left lung base. PLEURAL SPACE: No pleural effusion or pneumothorax. BONE:Normal. OTHER FINDINGS:The tip of the endotracheal tube is 5.4 cm above the jose maria. The tip of the nasogastr ic tube is below the diaphragms within the stomach. IMPRESSION: Left basilar infiltrate which may represent atelectasis or pneumonia. DATA REPOSITORY: RADIATION DOSE DELIVERED:
[2019-12-28] MEDS: Pantoprazole 40 MG VIAL IVP (08:35)
[2019-12-28] MEDS: Normal Saline Flush 10 ML SYR IVP (08:35)
--- NOTE | 2019-12-28 09:48 | PDOC.CMPRO ---
- If Service Date Differs Date of service: 12/28/19 Time of Service: 09:48 Care Management Progress Note S/O: Lucho remains in the ICU at this time he continues to be intubated and sedated. He is receiving IV abx and continue cardiac monitoring. [facility] CM will contact the [facility] to find a way to get his belongings returned to the hospital. No other changes anticipated today CM will continue to assess. A:Lucho is a 54 year old male admitted for pneumonia r/o Covid 19 which is negative. P:Disposition to be determined, Lucho remains ICU level of care today. CM to continue to assess and coordinate discharge needs.
[2019-12-28] MEDS: PROPOFOL 1,000 MG/100 ML BTL 10 MG IVPB (10:50)
--- NOTE | 2019-12-28 12:08 | PGE_ITS ---
Date of Service Date of service: 12/28/19 Time of Service: 12:08 Assessment and Plan Assessment and plan (1) Alcohol withdrawal delirium, acute, hyperactive: Status: Acute Assessment and plan: Patient is past the point where acute alcohol withdrawal should be contributing to his morbidity. He is passive. Where there is a risk for delirium tremens and seizures. As he is now extubated have discontinued all benzodiazepines. As he wakes up if he needs something for anxiety or agitation will try short acting Serax. (2) Multifocal lung consolidation: Status: Acute Assessment and plan: Despite a diagnosis of multifocal lung consolidation he really has a left basilar pneumonia. I discontinued Unasyn and switch him to Zosyn and added vancomycin to cover healthcare acquired pathogens. Continue with the doxycycline for now. After 10 days I will discontinue the doxycycline. He will need to Zosyn and vancomycin for another 7 to 10 days. (3) Cirrhosis of liver: Status: Acute Assessment and plan: Laboratory studies are compatible with chronic liver disease including elevated INR and bilirubin. Qualifiers: Hepatic cirrhosis type: alcoholic cirrhosis Ascites presence: without ascites Qualified Code(s): K70.30 - Alcoholic cirrhosis of liver without ascites (4) Hepatitis C: Status: Chronic Assessment and plan: Currently untreated. I will refer him for treatment upon discharge from the hospital Qualifiers: Viral hepatitis chronicity: chronic Hepatic coma status: without hepatic coma Qualified Code(s): B18.2 - Chronic viral hepatitis C (5) DVT prophylaxis: Status: Acute Assessment and plan: Currently not anticoagulated due to his low platelets. CORBIN hose and SCDs have been applied Subjective Subjective Interval history since last seen: Ventilator day #3, hospital day #8. Patient remains on Unasyn. Chest x-ray continues to show left basilar infiltrate however he is afebrile. Patient had a good weaning trial this morning. Despite his infiltrate I feel he is ready for extubation. He was not intubated initially because of pneumonia but mainly because of his severe alcohol withdrawal required for heavy sedation. He has been weaned off his propofol drip this morning and passed his breathing trial. Patient was extubated. There was copious secretions after the extubation including some blood-tinged secretions all of which were oral pharyngeal suction. In light of failure of his infiltrate to resolve I am going to start him on Zosyn and vancomycin and cover for healthcare acquired pathogens. He will continue to receive his doxy cycline. I discontinued all benzodiazepines at this point as he is far enough out from his alcohol withdrawal that he should no longer be experiencing a risk for delirium tremens. Exam Narrative Exam Narrative: Lethargic but arousable. He will open his eyes however he is not conversing. He will gag when I try to suction him or with oropharyngeal suction tip. He will voluntarily bite down and in fact prior to extubation he required a bite block to prevent him from biting his ET tube. He is not following commands. Lungs reveal scattered bilateral rhonchi and expiratory wheezes. Heart is regular without murmur rub or gallop. Abdomen is soft and nontender with active bowel sounds. Extremities without peripheral cyanosis or edema. Objective Objective Clinical Data: Abnormal lab results 12/27/19 12/28/19 12/28/19 Range/Units 14:30 06:15 06:15 RBC 3.40 L (4.50-6.00) m/cumm Hgb 11.8 L (13.5-17.5) g/dL Hct 35.8 L (40.0-50.0) % MCV 105.3 H (80-95) fL MCH 34.7 H (27.0-33.0) pg RDW 14.6 H (11.8-14.1) % Plt Count 62 L (130-400) x1000/uL MPV 11.6 H (8.0-11.0) fL Absolute Monocytes 0.80 H (0.11-0.7) k/cumm ABG pO2 (83-108) mmHg ABG O2 Saturation (94-98) % Chloride 109 H 111 H (98-107) mmol/L Glucose 112 H (74-106) mg/dL Calcium 7.9 L 8.0 L (8.5-10.1) mg/dL Total Bilirubin (0.2-1.0) mg/dL Conjugated Bilirubin (0.00-0.20) mg/dL AST (15-37) U/L Albumin (3.4-5.0) g/dL 12/28/19 12/28/19 Range/Units 06:15 07:35 RBC (4.50-6.00) m/cumm Hgb (13.5-17.5) g/dL Hct (40.0-50.0) % MCV (80-95) fL MCH (27.0-33.0) pg RDW (11.8-14.1) % Plt Count (130-400) x1000/uL MPV (8.0-11.0) fL Absolute Monocytes (0.11-0.7) k/cumm ABG pO2 60 L (83-108) mmHg ABG O2 Saturation 92 L (94-98) % Chloride (98-107) mmol/L Glucose (74-106) mg/dL Calcium (8.5-10.1) mg/dL Total Bilirubin 2.4 H (0.2-1.0) mg/dL Conjugated Bilirubin 1.63 H (0.00-0.20) mg/dL AST 92 H (15-37) U/L Albumin 2.4 L (3.4-5.0) g/dL Vital Signs Temperature 36.7 C 12/28/19 10:25 Temperature Source Temporal Artery Scan 12/28/19 10:25 Pulse 84 12/28/19 11:45 Pulse Rhythm Regular 12/24/19 08:15 Pulse 85 12/28/19 11:45 Respiratory Rate 15 12/28/19 11:45 Respiratory Effort 12/28/19 10:25 Respiratory Depth Normal 12/28/19 10:25 Respiratory Pattern Normal 12/28/19 10:25 Blood Pressure 148/73 H 12/28/19 11:45 Blood Pressure Mean 91 12/28/19 11:45 Blood Pressure Position Supine 12/28/19 05:41 Pulse Oximetry 98 12/28/19 11:45 Respiratory End-tidal CO2 22 12/28/19 11:45 Oxygen Delivery Method Mechanical Ventilator 12/28/19 10:25 Oxygen Flow Rate 0 12/28/19 10:25 Fraction of Inspired Oxygen (FIO2) 21 12/28/19 07:57 Pain Level 0 12/28/19 05:41 Comment 12/25/19 07:45 Intake & Output 12/27/19 12/28/19 12/28/19 23:59 11:59 23:59 Intake Total 2108.645 / 4184.353 328.637 / 328.637 Output Total 475 / 900 410 / 410 Balance 1633.645 / 3284.353 -81.363 / -81.363 Intake: IV 2108.645 / 4184.353 328.637 / 328.637 Output: Gastric Drainage 0 / 0 110 / 110 Right Nare 0 / 0 110 / 110 Urine 475 / 900 300 / 300 Other: Urine Color Dark Héctor Dark Héctor Urine Appearance Sediment Sediment Comment pt has indweling monroe catheter. Changed to urine meter for accurate urinary output.urine clear dark héctor with dark flecks present. monroe Gastric Occult Blood Left Nare Positive Right Nare Positive Laboratory Results WBC 6.03 k/cumm (4.4-10.8) 12/28/19 06:15 RBC 3.40 m/cumm (4.50-6.00) L 12/28/19 06:15 Hgb 11.8 g/dL (13.5-17.5) L 12/28/19 06:15 Hct 35.8 % (40.0-50.0) L 12/28/19 06:15 MCV 105.3 fL (80-95) H 12/28/19 06:15 MCH 34.7 pg (27.0-33.0) H 12/28/19 06:15 MCHC 33.0 g/dL (32.0-36.0) 12/28/19 06:15 RDW 14.6 % (11.8-14.1) H 12/28/19 06:15 Plt Count 62 x1000/uL (130-400) L 12/28/19 06:15 MPV 11.6 fL (8.0-11.0) H 12/28/19 06:15 Immature Gran % 0.2 % 12/28/19 06:15 Neutrophils % 62.9 12/28/19 06:15 Lymphocytes % 22.2 12/28/19 06:15 Monocytes % 13.3 12/28/19 06:15 Eosinophils % 1.2 12/28/19 06:15 Basophils % 0.2 12/28/19 06:15 Absolute Neutrophils 3.80 k/cumm (1.2-6.7) 12/28/19 06:15 Absolute Lymphocytes 1.34 k/cumm (1.2-3.4) 12/28/19 06:15 Absolute Monocytes 0.80 k/cumm (0.11-0.7) H 12/28/19 06:15 Absolute Eosinophils 0.07 k/cumm (0.0-0.7) 12/28/19 06:15 Absolute Basophils 0.01 k/cumm (0.0-0.2) 12/28/19 06:15 Differential Comment Plt morph reviewed 12/23/19 06:58 RBC Morphology See below 12/28/19 06:15 Polychromasia Present 12/28/19 06:15 Macrocytosis 2+ 12/28/19 06:15 PT 14.8 sec (9.3-11.0) H 12/24/19 12:10 INR 1.5 (0.9-1.1) H 12/24/19 12:10 ABG Sample Site Right radial 12/28/19 07:35 ABG pH 7.44 (7.35-7.45) 12/28/19 07:35 ABG pCO2 35 mmHg (34-47) 12/28/19 07:35 ABG pO2 60 mmHg (83-108) L 12/28/19 07:35 ABG HCO3 24 mmol/L (22-28) 12/28/19 07:35 ABG Total CO2 22 mmol/L (22-29) 12/28/19 07:35 ABG O2 Saturation 92 % (94-98) L 12/28/19 07:35 ABG Base Excess -0.7 mmol/L (-3-3) 12/28/19 07:35 Oxygen Liter Flow Ac15 480 peep5 L 12/26/19 19:34 FiO2 21 % 12/28/19 07:35 Sodium 143 mmol/L (136-145) 12/28/19 06:15 Potassium 3.7 mmol/L (3.5-5.1) 12/28/19 06:15 Chloride 111 mmol/L (98-107) H 12/28/19 06:15 Carbon Dioxide 24.5 mmol/L (21.0-32.0) 12/28/19 06:15 Anion Gap 7.5 mmol/L (3-11) 12/28/19 06:15 BUN 8 mg/dL (7-18) 12/28/19 06:15 Creatinine 0.93 mg/dL (0.70-1.30) 12/28/19 06:15 Estimated GFR/1.73 m2 >= 60.00 (mL/min/1.73m2) 12/28/19 06:15 Glucose 112 mg/dL (74-106) H 12/28/19 06:15 Lactate 1.6 mmol/L (0.6-1.4) H 12/22/19 06:31 Calcium 8.0 mg/dL (8.5-10.1) L 12/28/19 06:15 Phosphorus 3.7 mg/dL (2.6-4.7) 12/22/19 06:31 Magnesium 1.7 mg/dL (1.8-2.4) L 12/27/19 06:10 Total Bilirubin 2.4 mg/dL (0.2-1.0) H 12/28/19 06:15 Conjugated Bilirubin 1.63 mg/dL (0.00-0.20) H 12/28/19 06:15 AST 92 U/L (15-37) H 12/28/19 06:15 ALT 49 U/L (16-63) 12/28/19 06:15 Alkaline Phosphatase 103 U/L (46-116) 12/28/19 06:15 Ammonia 16 umol/L (11-32) 12/24/19 10:15 Troponin I < 0.05 ng/Ml (<0.06) 12/22/19 06:31 C-Reactive Protein 1.57 mg/dL (0.0-0.3) H 12/27/19 06:10 NT-Pro-B Natriuret Pep 49 pg/mL (<300) 12/27/19 06:10 Total Protein 6.4 g/dL (6.4-8.2) 12/28/19 06:15 Albumin 2.4 g/dL (3.4-5.0) L 12/28/19 06:15 Lipase 240 U/L (73-393) 12/21/19 19:40 Procalcitonin 0.1 ng/mL 12/27/19 06:10 Urine Color Dark yellow (Yellow) 12/22/19 08:00 Urine Clarity Clear (Clear) 12/22/19 08:00 Urine pH 6.5 (5-8) 12/22/19 08:00 Ur Specific [place] 1.020 (1.005-1.025) 12/22/19 08:00 Urine Protein Negative mg/dL (Negative) 12/22/19 08:00 Urine Ketones Negative mg/dL (Negative) 12/22/19 08:00 Urine Blood Negative (Negative) 12/22/19 08:00 Urine Nitrite Negative (Negative) 12/22/19 08:00 Urine Bilirubin Negative (Negative) 12/22/19 08:00 Urine Urobilinogen >=8.0 EU/dL (Up TO 0.2) 12/22/19 08:00 Ur Leukocyte Esterase Trace (Negative) H 12/22/19 08:00 Urine RBC 0-2 HPF (0-2) 12/22/19 08:00 Urine WBC 5-10 HPF (0-5) 12/22/19 08:00 Ur Epithelial Cells Few HPF (Negative) 12/22/19 08:00 Urine Crystals Negative HPF (Negative) 12/22/19 08:00 Urine Bacteria Rare HPF (Negative) 12/22/19 08:00 Urine Casts Negative LPF (Negative) 12/22/19 08:00 Urine Mucus Moderate (Negative) 12/22/19 08:00 Ur Culture Indicated? Yes 12/22/19 08:00 Urine Glucose Negative mg/dL (Negative) 12/22/19 08:00 Urine Opiates Screen Negative (Negative) 12/21/19 20:30 Urine Methadone Screen Negative (Negative) 12/21/19 20:30 Ur Barbiturates Screen Negative (Negative) 12/21/19 20:30 Ur Tricyclics Screen Negative (Negative) 12/21/19 20:30 Ur Amphetamines Screen Negative (Negative) 12/21/19 20:30 U Benzodiazepines Scrn Negative (Negative) 12/21/19 20:30 Urine Cocaine Screen Negative (Negative) 12/21/19 20:30 Ur THC Screen Negative (Negative) 12/21/19 20:30 Ethyl Alcohol 226.1 mg/dL (<3) 12/22/19 06:31 Coronavirus (PCR) Not detected 12/21/19 22:58 L.pneumophila Antibody Negative (Negative) 12/21/19 23:35 Urine Legionella Ag Negative (Negative) 12/22/19 08:00 Ur Strep pneumoniae Ag Negative (Negative) 12/22/19 08:00
--- NOTE | 2019-12-28 12:14 | W.NUTRFU ---
Date of service: 12/28/19 Time of Service: 12:15 Nutritional Follow up NOTE: Kapil has had inadequate nutrient intake x 7 days. PO intake first two days of hospitalization prior to intubation was <25%. Extubation scheduled today, if unsuccessful, recommend starting NG feedings SUELLEN to protect lean body mass and vital organ function, immune function. Recommend Jevity 1.2 60cc/hour (total volume: 1440 ml), flush 150 ml q 6 hours providing total of 1728 kcal (20kcal/kg), 78 g protein(1gpro/kg) , 1740 ml fluid (20 ml/kg). recommend feeding 70% of estimated needs in view of respiratory failure, critical illness. will follow. Time Spent in Nutritional Counseling and Treatment: 0 time spent face to face
[2019-12-28] MEDS: PIPERACILLIN/TAZO 4.5 GM in Normal Saline 100 ML IVPB ×2 (12:43→21:18)
[2019-12-28] MEDS: Ipratropium/Albuterol 4 GM 120 PUFF INH IH ×3 (13:01→21:17)
[2019-12-28] MEDS: Albuterol 2.5 MG/3 ML INH SOLN VIAL UPD (22:08)
--- NOTE | 2019-12-28 23:37 | NUR.NOTE ---
pt started out on the 3-11 shift with the following vital signs--temp of 36.7, HR of 103, bp-166/80, RR-25 and sao2 of 95% on 2lpm. 1999 hours- sao2 is still 96@ on 2lpm but HR of 114, BP-129/68 and jeremie of 37.7 2149- Pt's heart rate is now 108 to 114. sao2 keeps dipping into the 86-90 range and on 3lpm, despite turning and suctioning pt. patient has still not woken up. Dr. Lee called and notified.
[2019-12-29] VITALS (113 sets, daily range): BP systolic 123–166; BP diastolic 61–97; PULSE 96–121; RESP 1–98; TEMP 36.7–37.4; O2SAT 79–99
--- NOTE | 2019-12-29 | DI.US_ITS ---
EXAM: US UPPER EXTREMITY VENOUS RT CLINICAL HISTORY: asymmetrical arm edema r/o dvt. TECHNIQUE: Ultrasound examination of the right upper extremity venous system(s) is performed using g rayscale, color-flow, and spectral Doppler analysis. COMPARISON: No exams were available for comparison FINDINGS: The right internal jugular, axillary, subclavian, basilic, brachial, radial, and ulnar veins are ybarra nt without evidence of thrombosis. There is thrombus seen in the superficial cephalic vein approxima tely 20 cm in length. IMPRESSION: 1. No DVT. 2. Superficial thrombophlebitis of the right cephalic vein. DATA REPOSITORY:
[2019-12-29] MEDS: Albuterol 2.5 MG/3 ML INH SOLN VIAL UPD ×2 (05:27→09:33)
[2019-12-29] MEDS: DOXYCYCLINE 100 MG in Normal Saline 100 ML IVPB (05:31)
[2019-12-29] MEDS: PIPERACILLIN/TAZO 4.5 GM in Normal Saline 100 ML IVPB ×3 (05:36→20:46)
[2019-12-29 06:38] LABS: Abs Immature Grans 0.03 k/cumm (0.0-0.09); Absolute Basophil Count 0.01 k/cumm (0.0-0.2); Absolute Eosinophil Count 0.03 k/cumm (0.0-0.7); Absolute Lymphocyte Count 1.52 k/cumm (1.2-3.4); Absolute Monocyte Count 1.27 k/cumm (0.11-0.7); Basophils % 0.1; Eosinophils % 0.3; HCT 36.2 % (40.0-50.0); Immature Grans % 0.3 %; Lymphocytes % 17.1; Mean Corp. HGB Concentration 33.1 g/dL (32.0-36.0); Mean Corpuscular Hemoglobin 34.4 pg (27.0-33.0); Mean Corpuscular Volume 103.7 fL (80-95); Mean Platelet Volume 11.1 fL (8.0-11.0); Monocytes % 14.3; Neutrophils % 67.9; RBC 3.49 m/cumm (4.50-6.00); White Blood Cell Count 8.87 k/cumm (4.4-10.8)
[2019-12-29 06:39] LABS: Absolute Neutrophil Count 6.02 k/cumm (1.2-6.7)
[2019-12-29 06:41] LABS: Anion Gap 9.8 mmol/L (3-11); BUN 6 mg/dL (7-18); CO2 22.2 mmol/L (21.0-32.0); CREATININE 0.88 mg/dL (0.70-1.30); Chloride 108 mmol/L (98-107); Glucose 126 mg/dL (74-106); Potassium 3.7 mmol/L (3.5-5.1); Sodium 140 mmol/L (136-145)
[2019-12-29 06:47] LABS: ALT 49 U/L (16-63); AST 86 U/L (15-37); Albumin 2.5 g/dL (3.4-5.0); Alkaline Phosphatase 106 U/L (46-116); Bilirubin, Direct 1.64 mg/dL (0.00-0.20); Total Protein 6.8 g/dL (6.4-8.2)
[2019-12-29 07:25] LABS: Diff Comment PLT Morph Reviewed; Macrocytosis 2+; Platelet Count 73 x1000/uL (130-400)
[2019-12-29] MEDS: Ipratropium/Albuterol 4 GM 120 PUFF INH IH (07:53)
--- NOTE | 2019-12-29 08:21 | PGE_ITS ---
Date of Service Date of service: 12/29/19 Time of Service: 08:21 Assessment and Plan Assessment and plan (1) Acute metabolic encephalopathy: Status: Acute Assessment and plan: Acute metabolic encephalopathy secondary to accumulation of benzodiazepines and phenobarbital use to treat his acute alcohol withdrawal delirium. I suspect this could be several days she had before his impaired liver can clear the accumulation of drugs. In the meantime we will continue supportive care with antibiotics for his pneumonia frequent oropharyngeal suctioning and keep his head of his bed elevated at greater than 60 degrees at all times. He will need nutritional support were given to enteral feedings through an NG tube. I have updated his mother, Shivani, on his condition. (2) Left lower lobe pneumonia: Status: Acute Assessment and plan: Patient's antibiotic regimen was changed yesterday to Zosyn and vancomycin. I think this point we can discontinue the doxycycline as is not contributing to the recovery of his pneumonia. Chest x-ray was checked yesterday and there was no change in his left lower lobe infiltrate Qualifiers: Pneumonia type: due to unspecified organism Qualified Code(s): J18.9 - Pneumonia, unspecified organism (3) Nutrition deficiency due to insufficient food: Status: Acute Assessment and plan: We were going to attempt NG feedings however despite [address] nursing [address] his NG, his NG ended up in his right mainstem bronchus and therefore the NG was pulled. At this time I think that TPN would be a safer alternative. I have asked for PICC line placement for TPN. (4) Cirrhosis of liver: Status: Acute Assessment and plan: Laboratory studies are compatible with chronic liver disease including elevated INR and bilirubin. Qualifiers: Ascites presence: without ascites Hepatic cirrhosis type: alcoholic cirrhosis Qualified Code(s): K70.30 - Alcoholic cirrhosis of liver without ascites (5) Hepatitis C: Status: Chronic Assessment and plan: Currently untreated. I will refer him for treatment upon discharge from the hospital Qualifiers: Hepatic coma status: without hepatic coma Viral hepatitis chronicity: chronic Qualified Code(s): B18.2 - Chronic viral hepatitis C (6) Alcohol withdrawal delirium, acute, hyperactive: Status: Acute Assessment and plan: Patient is past the point where acute alcohol withdrawal should be contributing to his morbidity. He is passive. Where there is a risk for delirium tremens and seizures. As he is now extubated have discontinued all benzodiazepines. As he wakes up if he needs something for anxiety or agitation will try short acting Serax. (7) DVT prophylaxis: Status: Acute Assessment and plan: Currently not anticoagulated due to his low platelets. CORBIN hose and SCDs have been applied. Duplex study of right arm was ordered to rule out RUE DVT Subjective Subjective Interval history since last seen: Patient is remained extubated since yesterday morning. He remains encephalopathic. He has sonorous respirations and is not arousable even to tactile stimulation. He required an increase of his oxygen overnight. FiO2 is been between 3 to 4 L/min per nasal cannula. He remains afebrile and without a leukocytosis. He is demonstrating scleral icterus as well as jaundice and bilirubinuria. As the patient is not waking enough to be able to be fed orally we will get and replace his NG and start tube feedings as per dietary's recommendations. Nursing is concerned about his peripheral edema. I examined his arms and he has significant edema right more so than the left with the right humerus and forearm firmly indurated raising some concern for a r ight upper extremity DVT. Exam Narrative Exam Narrative: Middle-age male who appears older than stated age. He is obtunded with sonorous respirations. Pulse oximetry currently 92% on 4 L/min per nasal cannula. Heart rate is 97 sinus rhythm BP 140/68 respirations 27. HEENT is remarkable for scleral icterus and scleral edema Neck is supple with flat neck veins. Lungs are clear anteriorly and posteriorly in the upper ramirez but with bibasilar rales and diminished breath sounds at the bases. Heart is regular rate and rhythm without murmur rub or gallop. Abdomen is soft nondistended with hypoactive bowel sounds Extremities there is no calf swelling or pedal edema. He has bilateral hand edema and mild edema of the left forearm. Right forearm and hand and wrist as well as right upper arm at the humerus is significantly more edematous than the left and feels firm. Objective Objective Clinical Data: Abnormal lab results 12/29/19 12/29/19 12/29/19 Range/Units 06:10 06:10 06:10 RBC 3.49 L (4.50-6.00) m/cumm Hgb 12.0 L (13.5-17.5) g/dL Hct 36.2 L (40.0-50.0) % MCV 103.7 H (80-95) fL MCH 34.4 H (27.0-33.0) pg RDW 15.0 H (11.8-14.1) % Plt Count 73 L (130-400) x1000/uL MPV 11.1 H (8.0-11.0) fL Absolute Monocytes 1.27 H (0.11-0.7) k/cumm Chloride 108 H (98-107) mmol/L BUN 6 L (7-18) mg/dL Glucose 126 H (74-106) mg/dL Calcium 8.0 L (8.5-10.1) mg/dL Total Bilirubin 3.0 H (0.2-1.0) mg/dL Conjugated Bilirubin 1.64 H (0.00-0.20) mg/dL AST 86 H (15-37) U/L Albumin 2.5 L (3.4-5.0) g/dL Vital Signs Temperature 37.2 C 12/29/19 04:32 Temperature Source Temporal Artery Scan 12/29/19 04:32 Pulse 110 H 12/29/19 06:00 Pulse Rhythm Regular 12/24/19 08:15 Pulse 111 H 12/29/19 06:00 Respiratory Rate 32 H 12/29/19 06:00 Respiratory Effort 12/29/19 04:32 Respiratory Depth Shallow 12/29/19 04:32 Respiratory Pattern Tachypnea 12/29/19 04:32 Blood Pressure 135/70 12/29/19 06:00 Blood Pressure Mean 81 12/29/19 06:00 Blood Pressure Position Supine 12/29/19 04:32 Pulse Oximetry 92 L 12/29/19 07:58 Respiratory End-tidal CO2 22 12/28/19 11:45 Oxygen Delivery Method Nasal Cannula 12/29/19 07:58 Oxygen Flow Rate 3 12/29/19 07:58 Fraction of Inspired Oxygen (FIO2) 21 12/28/19 07:57 Pain Level 0 12/29/19 00:34 Comment 12/25/19 07:45 Intake & Output 12/28/19 12/28/19 12/29/19 11:59 23:59 11:59 Intake Total 1341.137 / 2691.137 1350 / 2691.137 1550 / 1550 Output Total 410 / 755 345 / 755 900 / 900 Balance 931.137 / 7723.192 7208 / 1936.137 650 / 650 Intake: IV 1341.137 / 2691.137 1350 / 2691.137 1550 / 1550 Output: Gastric Drainage 110 / 110 Right Nare 110 / 110 Urine 300 / 645 345 / 645 900 / 900 Other: Urine Color Dark Héctor Dark Héctor Dark Héctor Urine Appearance Sediment Cloudy Sediment Comment monroe monroe to gravity with medium héctor urine continues with indwelling monroe cath. urine dark héctor with many black flecks Gastric Occult Blood Left Nare Positive Right Nare Positive Laboratory Results WBC 8.87 k/cumm (4.4-10.8) D 12/29/19 06:10 RBC 3.49 m/cumm (4.50-6.00) L 12/29/19 06:10 Hgb 12.0 g/dL (13.5-17.5) L 12/29/19 06:10 Hct 36.2 % (40.0-50.0) L 12/29/19 06:10 MCV 103.7 fL (80-95) H 12/29/19 06:10 MCH 34.4 pg (27.0-33.0) H 12/29/19 06:10 MCHC 33.1 g/dL (32.0-36.0) 12/29/19 06:10 RDW 15.0 % (11.8-14.1) H 12/29/19 06:10 Plt Count 73 x1000/uL (130-400) L 12/29/19 06:10 MPV 11.1 fL (8.0-11.0) H 12/29/19 06:10 Immature Gran % 0.3 % 12/29/19 06:10 Neutrophils % 67.9 12/29/19 06:10 Lymphocytes % 17.1 12/29/19 06:10 Monocytes % 14.3 12/29/19 06:10 Eosinophils % 0.3 12/29/19 06:10 Basophils % 0.1 12/29/19 06:10 Absolute Neutrophils 6.02 k/cumm (1.2-6.7) 12/29/19 06:10 Absolute Lymphocytes 1.52 k/cumm (1.2-3.4) 12/29/19 06:10 Absolute Monocytes 1.27 k/cumm (0.11-0.7) H 12/29/19 06:10 Absolute Eosinophils 0.03 k/cumm (0.0-0.7) 12/29/19 06:10 Absolute Basophils 0.01 k/cumm (0.0-0.2) 12/29/19 06:10 Differential Comment Plt morph reviewed 12/29/19 06:10 RBC Morphology See below 12/29/19 06:10 Polychromasia Present 12/28/19 06:15 Macrocytosis 2+ 12/29/19 06:10 PT 14.8 sec (9.3-11.0) H 12/24/19 12:10 INR 1.5 (0.9-1.1) H 12/24/19 12:10 ABG Sample Site Right radial 12/28/19 07:35 ABG pH 7.44 (7.35-7.45) 12/28/19 07:35 ABG pCO2 35 mmHg (34-47) 12/28/19 07:35 ABG pO2 60 mmHg (83-108) L 12/28/19 07:35 ABG HCO3 24 mmol/L (22-28) 12/28/19 07:35 ABG Total CO2 22 mmol/L (22-29) 12/28/19 07:35 ABG O2 Saturation 92 % (94-98) L 12/28/19 07:35 ABG Base Excess -0.7 mmol/L (-3-3) 12/28/19 07:35 Oxygen Liter Flow Ac15 480 peep5 L 12/26/19 19:34 FiO2 21 % 12/28/19 07:35 Sodium 140 mmol/L (136-145) 12/29/19 06:10 Potassium 3.7 mmol/L (3.5-5.1) 12/29/19 06:10 Chloride 108 mmol/L (98-107) H 12/29/19 06:10 Carbon Dioxide 22.2 mmol/L (21.0-32.0) 12/29/19 06:10 Anion Gap 9.8 mmol/L (3-11) 12/29/19 06:10 BUN 6 mg/dL (7-18) L 12/29/19 06:10 Creatinine 0.88 mg/dL (0.70-1.30) 12/29/19 06:10 Estimated GFR/1.73 m2 >= 60.00 (mL/min/1.73m2) 12/29/19 06:10 Glucose 126 mg/dL (74-106) H 12/29/19 06:10 Lactate 1.6 mmol/L (0.6-1.4) H 12/22/19 06:31 Calcium 8.0 mg/dL (8.5-10.1) L 12/29/19 06:10 Phosphorus 3.7 mg/dL (2.6-4.7) 12/22/19 06:31 Magnesium 1.7 mg/dL (1.8-2.4) L 12/27/19 06:10 Total Bilirubin 3.0 mg/dL (0.2-1.0) H 12/29/19 06:10 Conjugated Bilirubin 1.64 mg/dL (0.00-0.20) H 12/29/19 06:10 AST 86 U/L (15-37) H 12/29/19 06:10 ALT 49 U/L (16-63) 12/29/19 06:10 Alkaline Phosphatase 106 U/L (46-116) 12/29/19 06:10 Ammonia 16 umol/L (11-32) 12/24/19 10:15 Troponin I < 0.05 ng/Ml (<0.06) 12/22/19 06:31 C-Reactive Protein 1.57 mg/dL (0.0-0.3) H 12/27/19 06:10 NT-Pro-B Natriuret Pep 49 pg/mL (<300) 12/27/19 06:10 Total Protein 6.8 g/dL (6.4-8.2) 12/29/19 06:10 Albumin 2.5 g/dL (3.4-5.0) L 12/29/19 06:10 Lipase 240 U/L (73-393) 12/21/19 19:40 Procalcitonin 0.1 ng/mL 12/27/19 06:10 Urine Color Dark yellow (Yellow) 12/22/19 08:00 Urine Clarity Clear (Clear) 12/22/19 08:00 Urine pH 6.5 (5-8) 12/22/19 08:00 Ur Specific [place] 1.020 (1.005-1.025) 12/22/19 08:00 Urine Protein Negative mg/dL (Negative) 12/22/19 08:00 Urine Ketones Negative mg/dL (Negative) 12/22/19 08:00 Urine Blood Negative (Negative) 12/22/19 08:00 Urine Nitrite Negative (Negative) 12/22/19 08:00 Urine Bilirubin Negative (Negative) 12/22/19 08:00 Urine Urobilinogen >=8.0 EU/dL (Up TO 0.2) 12/22/19 08:00 Ur Leukocyte Esterase Trace (Negative) H 12/22/19 08:00 Urine RBC 0-2 HPF (0-2) 12/22/19 08:00 Urine WBC 5-10 HPF (0-5) 12/22/19 08:00 Ur Epithelial Cells Few HPF (Negative) 12/22/19 08:00 Urine Crystals Negative HPF (Negative) 12/22/19 08:00 Urine Bacteria Rare HPF (Negative) 12/22/19 08:00 Urine Casts Negative LPF (Negative) 12/22/19 08:00 Urine Mucus Moderate (Negative) 12/22/19 08:00 Ur Culture Indicated? Yes 12/22/19 08:00 Urine Glucose Negative mg/dL (Negative) 12/22/19 08:00 Urine Opiates Screen Negative (Negative) 12/21/19 20:30 Urine Methadone Screen Negative (Negative) 12/21/19 20:30 Ur Barbiturates Screen Negative (Negative) 12/21/19 20:30 Ur Tricyclics Screen Negative (Negative) 12/21/19 20:30 Ur Amphetamines Screen Negative (Negative) 12/21/19 20:30 U Benzodiazepines Scrn Negative (Negative) 12/21/19 20:30 Urine Cocaine Screen Negative (Negative) 12/21/19 20:30 Ur THC Screen Negative (Negative) 12/21/19 20:30 Ethyl Alcohol 226.1 mg/dL (<3) 12/22/19 06:31 Coronavirus (PCR) Not detected 12/21/19 22:58 L.pneumophila Antibody Negative (Negative) 12/21/19 23:35 Urine Legionella Ag Negative (Negative) 12/22/19 08:00 Ur Strep pneumoniae Ag Negative (Negative) 12/22/19 08:00 Reviewed Pertinent PMH: Yes Objective Narrative Objective Narrative: [id number] vascular ultrasound was performed of the right upper extremity. The cephalic and basilic veins were not thrombosed and remain widely patent and compressible. Up into the right axilla there was some questionable compressibility of the axillary vein. The right subclavian vein appeared to be patent but because of its location could not test for compressibility
[2019-12-29] MEDS: Pantoprazole 40 MG VIAL IVP (08:35)
--- NOTE | 2019-12-29 10:01 | PT.INNT ---
Date of service: 12/29/19 Time of Service: 10:01 PT Notes Visit Reasons: COMMUNITY AQUIRED PNEUMONIA VS ASPIRATION, ALCOHOL Orders received on this date for PT consultation for fall safety assessments on this patient. Chart review was completed. Initial evaluation put on hold as per nursing. Patient is not appropriate for PT consult at current time. Patient on hold until cleared medically and appropriate for PT consult. Telly Moreno PT, DPT
[2019-12-29] MEDS: Budesonide/Formoterol 160/4.5 6 GM 60 PUFF INH IH ×2 (10:41→20:43)
[2019-12-29] MEDS: Oxymetazolone 0.05% SPRAY 15 ML BTL NS (11:00)
--- NOTE | 2019-12-29 11:48 | DI.RAD_ITS ---
EXAM: XR PORTABLE CHEST AP POST LINE CLINICAL HISTORY: NG placement confirmation TECHNIQUE: 2D digital imaging was performed. COMPARISON: XR PORTABLE CHEST AP POST LINE from 12/27/2019 FINDINGS: MEDIASTINUM: Normal. HEART: Normal. PULMONARY VASCULATURE: Normal. LUNGS: There are persistent bilateral basilar infiltrates. PLEURAL SPACE: No pleural effusion or pneumothorax. BONE:Normal. OTHER FINDINGS:The endotracheal tube has been removed. The nasogastric tube has been repositioned. T he tip is in the right bronchus leading to the lower lobe. It should be removed and repositioned. T here is poor inspiratory effort. IMPRESSION: Repositioned nasogastric tube with its tip in the right bronchus leading to the lower lobe. The tube should be removed and repositioned. Findings were discussed with Dr. Brewer at 12 p.m. on 12/29/2019. DATA REPOSITORY: RADIATION DOSE DELIVERED:
--- NOTE | 2019-12-29 12:00 | PDOC.CMPRO ---
- If Service Date Differs Date of service: 12/29/19 Time of Service: 12:00 Care Management Progress Note S/O: Lucho remains in the ICU at this time. He was successfully extubated yesterday. Lucho is tachycardic, tachypneic and essentially unresponsive. At times he will respond to a sternal rub or deep suctioning but is non-verbal. He continues to receive antibiotics and is afebrile. A:Lucho is a 54 year old male admitted for pneumonia and ETOH withdrawal. He was tested for Covid 19 which is negative. P:Disposition to be determined. Lucho remains ICU level of care today. CM to continue to assess, provide support to patient and family and coordinate discharge needs.
[2019-12-29] MEDS: Lidocaine 2% Jelly 11 ML SYR (12:50)
[2019-12-29] MEDS: Albuterol/Ipratropium 3 ML UPD VIAL UPD ×4 (12:59→23:56)
--- NOTE | 2019-12-29 13:13 | DI.RAD_ITS ---
EXAM: XR PORTABLE CHEST AP POST LINE CLINICAL HISTORY: NG confirmation TECHNIQUE: 2D digital imaging was performed. COMPARISON: XR PORTABLE CHEST AP POST LINE from 12/29/2019 FINDINGS: MEDIASTINUM: Normal. HEART: Normal. PULMONARY VASCULATURE: Normal. LUNGS: Persistent bilateral basilar infiltrates. PLEURAL SPACE: No pleural effusion or pneumothorax. BONE:Normal. OTHER FINDINGS:Nasogastric tube has been repositioned. The tip is seen below the diaphragms within t he stomach. IMPRESSION: Interval repositioning of the nasogastric tube. The tip of the nasogastric tube is now seen below th e diaphragms within the stomach. DATA REPOSITORY: RADIATION DOSE DELIVERED:
[2019-12-29 14:12] LABS: Vancomycin, Trough 9.3 ug/mL (10.0-20.0)
[2019-12-29] MEDS: POTASSIUM CHLORIDE/D5-0.45NACL 1,000 ML 85 MEQ IV (14:26)
[2019-12-29] MEDS: Furosemide 20 MG/2 ML VIAL IVP (16:27)
[2019-12-29] MEDS: Insulin Aspart 300 UNITS/3 ML PEN SC (20:44)
[2019-12-29] MEDS: Normal Saline Flush 10 ML SYR 20 ML IVP ×2 (20:45→23:56)
[2019-12-30] VITALS (29 sets, daily range): BP systolic 113–158; BP diastolic 59–84; PULSE 102–119; RESP 1–26; TEMP 36.4–37.6; O2SAT 88–97
[2019-12-30] MEDS: PIPERACILLIN/TAZO 4.5 GM in Normal Saline 100 ML IVPB ×2 (03:25→16:15)
[2019-12-30] MEDS: Albuterol/Ipratropium 3 ML UPD VIAL UPD ×4 (03:25→21:00)
[2019-12-30] MEDS: Normal Saline Flush 10 ML SYR 20 ML IVP ×4 (03:27→21:01)
[2019-12-30] MEDS: Budesonide/Formoterol 160/4.5 6 GM 60 PUFF INH IH ×2 (08:09→20:59)
[2019-12-30] MEDS: Normal Saline Flush 10 ML SYR IVP ×3 (08:51→12:26)
--- NOTE | 2019-12-30 09:21 | PDOC.CMPRO ---
- If Service Date Differs Date of service: 12/30/19 Time of Service: 09:21 Care Management Progress Note S/O: Lucho remains in the ICU at this time. Over night blood was noted in the NG tube which is felt likely to be due to swallowed blood from epistaxis. Kapil is also experiencing new onset hypoxia. Appropriate imaging has been ordered and completed. A palliative care consult has been requested.Dr. Vargas contacted Kapil's mother who reinforced that he is to remain a full code and that she would like everything possible to be done for him. A:Lucho is a 54 year old male admitted for pneumonia and ETOH withdrawal. He was tested for Covid 19 which is negative. P:Disposition to be determined. Lucho remains ICU level of care.. CM to continue to assess, provide support to patient and family and coordinate discharge needs.
--- NOTE | 2019-12-30 09:42 | W.PM.PROGNOT ---
Date of Service Date of service: 12/30/19 Time of Service: 09:42 Assessment and Plan Assessment and plan (1) Upper GI bleeding: Status: Acute Assessment and plan: Likely due to NGT trauma - but the patient is a very high risk for bleeding for other reasons such as h/o cirrhosis with varices, coagulopathy, and thrombocytopenia. Check H/H at noon. NGT is still in for now. protonix increased to BID IV. NPO. General surgery consulted. Could have portal gastropathy as well. Will await surgical recommendations. (2) Acute metabolic encephalopathy: Status: Acute Assessment and plan: Check VBG and ammonia. Consider CT head - does have thrombocytopenia and coagulopathy. It is possible that encephalopathy is due to slow clearance of phenobarb and lorazepam, but it could also be due to hyperammonemia and CO2 retention, based on the breathing pattern. (3) Left lower lobe pneumonia: Status: Acute Assessment and plan: Continue vanco/zosyn. Check VBG. Qualifiers: Pneumonia type: due to unspecified organism Qualified Code(s): J18.9 - Pneumonia, unspecified organism (4) Nutrition deficiency due to insufficient food: Status: Acute Assessment and plan: Receiving TPN via LUE PICC (5) Cirrhosis of liver: Status: Acute Assessment and plan: Confirmed radiologically. Checking ammonia, INR. Concern for portal gastropathy. Less likely to have variceal bleeding right now - bleeding is not massive. Qualifiers: Hepatic cirrhosis type: alcoholic cirrhosis Ascites presence: without ascites Qualified Code(s): K70.30 - Alcoholic cirrhosis of liver without ascites (6) Hepatitis C: Status: Chronic Assessment and plan: Contributing to cirrhosis. Untreated. Qualifiers: Viral hepatitis chronicity: chronic Hepatic coma status: without hepatic coma Qualified Code(s): B18.2 - Chronic viral hepatitis C (7) Alcohol withdrawal delirium, acute, hyperactive: Status: Resolved Assessment and plan: No evidence of active alcohol withdrawal at this time. Monitor. (8) Superficial thrombophlebitis of right upper extremity: Status: Acute Assessment and plan: Continue warm compresses (9) DVT prophylaxis: Status: Acute Assessment and plan: Chemical DVT ppx contraindicated due to GI bleeding, coagulopathy, thrombocytopenia. Continue TEDs/ SCDs. (10) Discharge planning issues: Status: Acute Assessment and plan: Full code Keep in ICU. Critical Care Time 40 minutes. Subjective Subjective Interval history since last seen: Remains very lethargic, arousable, but not following commands or responding to questions. O2 requirement: room air - 1 L. Nursing notes that the patient has had bloody output in his NGT all night; at this time, it looks greenish, but gastroccult positive. No BM. Very jaundiced. Exam Narrative Exam Narrative: General: very jaundiced middle-aged male, lethargic, arousable, but not following commands, not answering questions. Not tracking. No tremors or visible asterexis. He does appear to have abdominal breathing on inspiration, but RR is not increased HEENT: scleral icterus; unable to evaluate EOM - patient not following commands; PERRL Heart: RRR, mildly tachycardic (90's), no m/r/g Lungs: CTAB anteriorly; see above re increased inspiratory effort/abdominal breathing Abdomen: soft, nontender, nondistended Extremities: no e/c/c BLE's Objective Objective Clinical Data: Abnormal lab results 12/29/19 Range/Units 13:45 Vancomycin Trough 9.3 L (10.0-20.0) ug/mL Vital Signs Temperature 36.7 C 12/30/19 07:55 Temperature Source Temporal Artery Scan 12/30/19 07:55 Pulse 103 H 12/30/19 08:00 Pulse Rhythm Regular 12/24/19 08:15 Pulse 105 H 12/30/19 08:01 Respiratory Rate 17 12/30/19 08:01 Respiratory Effort 12/30/19 07:55 Respiratory Depth Deep 12/30/19 07:55 Respiratory Pattern Apnea 12/30/19 07:55 Blood Pressure 143/72 H 12/30/19 08:00 Blood Pressure Mean 88 12/30/19 08:00 Blood Pressure Position Supine 12/30/19 07:55 Pulse Oximetry 91 L 12/30/19 08:09 Respiratory End-tidal CO2 22 12/29/19 21:00 Oxygen Delivery Method OxyMask 12/30/19 08:09 Oxygen Flow Rate 4 12/30/19 08:09 Fraction of Inspired Oxygen (FIO2) 21 12/28/19 07:57 Pain Level 0 12/30/19 04:13 Comment 12/25/19 07:45 Intake & Output 12/29/19 12/29/1920 11:59 23:59 11:59 Intake Total 1900 / 2972.5 1072.5 / 2972.5 350 / 350 Output Total 1150 / 4100 2950 / 4100 550 / 550 Balance 750 / -1127.5 -1877.5 / -1127.5 -200 / -200 Intake: IV 1900 / 2972.5 1072.5 / 2972.5 350 / 350 Output: Gastric Drainage 0 / 0 0 / 0 Left Nare 0 / 0 Right Nare 0 / 0 Urine 1150 / 4100 2950 / 4100 550 / 550 Other: Urine Color Dark Héctor Yellow Dark Héctor Straw Urine Appearance Sediment Sediment Urine Odor None Comment pt has indewlling monroe draining clear dark utine. monroe is patent and draining dark héctor urine. monroe in place. Light héctor urine Stool Size Smear Gastric Occult Blood Right Nare Positive Laboratory Results WBC 8.87 k/cumm (4.4-10.8) D 12/29/19 06:10 RBC 3.49 m/cumm (4.50-6.00) L 12/29/19 06:10 Hgb 12.0 g/dL (13.5-17.5) L 12/29/19 06:10 Hct 36.2 % (40.0-50.0) L 12/29/19 06:10 MCV 103.7 fL (80-95) H 12/29/19 06:10 MCH 34.4 pg (27.0-33.0) H 12/29/19 06:10 MCHC 33.1 g/dL (32.0-36.0) 12/29/19 06:10 RDW 15.0 % (11.8-14.1) H 12/29/19 06:10 Plt Count 73 x1000/uL (130-400) L 12/29/19 06:10 MPV 11.1 fL (8.0-11.0) H 12/29/19 06:10 Immature Gran % 0.3 % 12/29/19 06:10 Neutrophils % 67.9 12/29/19 06:10 Lymphocytes % 17.1 12/29/19 06:10 Monocytes % 14.3 12/29/19 06:10 Eosinophils % 0.3 12/29/19 06:10 Basophils % 0.1 12/29/19 06:10 Absolute Neutrophils 6.02 k/cumm (1.2-6.7) 12/29/19 06:10 Absolute Lymphocytes 1.52 k/cumm (1.2-3.4) 12/29/19 06:10 Absolute Monocytes 1.27 k/cumm (0.11-0.7) H 12/29/19 06:10 Absolute Eosinophils 0.03 k/cumm (0.0-0.7) 12/29/19 06:10 Absolute Basophils 0.01 k/cumm (0.0-0.2) 12/29/19 06:10 Differential Comment Plt morph reviewed 12/29/19 06:10 RBC Morphology See below 12/29/19 06:10 Polychromasia Present 12/28/19 06:15 Macrocytosis 2+ 12/29/19 06:10 PT 14.8 sec (9.3-11.0) H 12/24/19 12:10 INR 1.5 (0.9-1.1) H 12/24/19 12:10 ABG Sample Site Right radial 12/28/19 07:35 ABG pH 7.44 (7.35-7.45) 12/28/19 07:35 ABG pCO2 35 mmHg (34-47) 12/28/19 07:35 ABG pO2 60 mmHg (83-108) L 12/28/19 07:35 ABG HCO3 24 mmol/L (22-28) 12/28/19 07:35 ABG Total CO2 22 mmol/L (22-29) 12/28/19 07:35 ABG O2 Saturation 92 % (94-98) L 12/28/19 07:35 ABG Base Excess -0.7 mmol/L (-3-3) 12/28/19 07:35 Oxygen Liter Flow Ac15 480 peep5 L 12/26/19 19:34 FiO2 21 % 12/28/19 07:35 Sodium 140 mmol/L (136-145) 12/29/19 06:10 Potassium 3.7 mmol/L (3.5-5.1) 12/29/19 06:10 Chloride 108 mmol/L (98-107) H 12/29/19 06:10 Carbon Dioxide 22.2 mmol/L (21.0-32.0) 12/29/19 06:10 Anion Gap 9.8 mmol/L (3-11) 12/29/19 06:10 BUN 6 mg/dL (7-18) L 12/29/19 06:10 Creatinine 0.88 mg/dL (0.70-1.30) 12/29/19 06:10 Estimated GFR/1.73 m2 >= 60.00 (mL/min/1.73m2) 12/29/19 06:10 Glucose 126 mg/dL (74-106) H 12/29/19 06:10 Lactate 1.6 mmol/L (0.6-1.4) H 12/22/19 06:31 Calcium 8.0 mg/dL (8.5-10.1) L 12/29/19 06:10 Phosphorus 3.7 mg/dL (2.6-4.7) 12/22/19 06:31 Magnesium 1.7 mg/dL (1.8-2.4) L 12/27/19 06:10 Total Bilirubin 3.0 mg/dL (0.2-1.0) H 12/29/19 06:10 Conjugated Bilirubin 1.64 mg/dL (0.00-0.20) H 12/29/19 06:10 AST 86 U/L (15-37) H 12/29/19 06:10 ALT 49 U/L (16-63) 12/29/19 06:10 Alkaline Phosphatase 106 U/L (46-116) 12/29/19 06:10 Ammonia 16 umol/L (11-32) 12/24/19 10:15 Troponin I < 0.05 ng/Ml (<0.06) 12/22/19 06:31 C-Reactive Protein 1.57 mg/dL (0.0-0.3) H 12/27/19 06:10 NT-Pro-B Natriuret Pep 49 pg/mL (<300) 12/27/19 06:10 Total Protein 6.8 g/dL (6.4-8.2) 12/29/19 06:10 Albumin 2.5 g/dL (3.4-5.0) L 12/29/19 06:10 Lipase 240 U/L (73-393) 12/21/19 19:40 Procalcitonin 0.1 ng/mL 12/27/19 06:10 Urine Color Dark yellow (Yellow) 12/22/19 08:00 Urine Clarity Clear (Clear) 12/22/19 08:00 Urine pH 6.5 (5-8) 12/22/19 08:00 Ur Specific Gooding 1.020 (1.005-1.025) 12/22/19 08:00 Urine Protein Negative mg/dL (Negative) 12/22/19 08:00 Urine Ketones Negative mg/dL (Negative) 12/22/19 08:00 Urine Blood Negative (Negative) 12/22/19 08:00 Urine Nitrite Negative (Negative) 12/22/19 08:00 Urine Bilirubin Negative (Negative) 12/22/19 08:00 Urine Urobilinogen >=8.0 EU/dL (Up TO 0.2) 12/22/19 08:00 Ur Leukocyte Esterase Trace (Negative) H 12/22/19 08:00 Urine RBC 0-2 HPF (0-2) 12/22/19 08:00 Urine WBC 5-10 HPF (0-5) 12/22/19 08:00 Ur Epithelial Cells Few HPF (Negative) 12/22/19 08:00 Urine Crystals Negative HPF (Negative) 12/22/19 08:00 Urine Bacteria Rare HPF (Negative) 12/22/19 08:00 Urine Casts Negative LPF (Negative) 12/22/19 08:00 Urine Mucus Moderate (Negative) 12/22/19 08:00 Ur Culture Indicated? Yes 12/22/19 08:00 Urine Glucose Negative mg/dL (Negative) 12/22/19 08:00 Vancomycin Trough 9.3 ug/mL (10.0-20.0) L 12/29/19 13:45 Urine Opiates Screen Negative (Negative) 12/21/19 20:30 Urine Methadone Screen Negative (Negative) 12/21/19 20:30 Ur Barbiturates Screen Negative (Negative) 12/21/19 20:30 Ur Tricyclics Screen Negative (Negative) 12/21/19 20:30 Ur Amphetamines Screen Negative (Negative) 12/21/19 20:30 U Benzodiazepines Scrn Negative (Negative) 12/21/19 20:30 Urine Cocaine Screen Negative (Negative) 12/21/19 20:30 Ur THC Screen Negative (Negative) 12/21/19 20:30 Ethyl Alcohol 226.1 mg/dL (<3) 12/22/19 06:31 Coronavirus (PCR) Not detected 12/21/19 22:58 L.pneumophila Antibody Negative (Negative) 12/21/19 23:35 Urine Legionella Ag Negative (Negative) 12/22/19 08:00 Ur Strep pneumoniae Ag Negative (Negative) 12/22/19 08:00
[2019-12-30 09:49] LABS: BE (Venous) 1.9 mmol/L (-3-3); HCO3 (Venous) 27 mmol/L (22-28); O2 Sat (Venous) 92 % (70-80); TCO2 (Venous) 24 mmol/L (22-29); pCO2 (Venous) 42 mm/Hg (34-47); pH (Venous) 7.41 (7.35-7.45); pO2 (Venous) 63 mm/Hg (28-44)
[2019-12-30] MEDS: Nystatin POWDER 60 GM JAR TP ×3 (09:58→21:02)
[2019-12-30 10:13] LABS: Ammonia 38 umol/L (11-32)
[2019-12-30 10:15] LABS: Anion Gap 6.3 mmol/L (3-11); BUN 12 mg/dL (7-18); CO2 27.7 mmol/L (21.0-32.0); CREATININE 0.69 mg/dL (0.70-1.30); Calcium 8.4 mg/dL (8.5-10.1); Chloride 104 mmol/L (98-107); Glucose 106 mg/dL (74-106); Potassium 3.5 mmol/L (3.5-5.1); Sodium 138 mmol/L (136-145)
[2019-12-30 10:17] LABS: Abs Immature Grans 0.01 k/cumm (0.0-0.09); Absolute Basophil Count 0.01 k/cumm (0.0-0.2); Absolute Eosinophil Count 0.12 k/cumm (0.0-0.7); Absolute Lymphocyte Count 1.48 k/cumm (1.2-3.4); Absolute Monocyte Count 1.57 k/cumm (0.11-0.7); Absolute Neutrophil Count 5.68 k/cumm (1.2-6.7); Basophils % 0.1; Eosinophils % 1.4; HCT 37.4 % (40.0-50.0); HGB 12.3 g/dL (13.5-17.5); Immature Grans % 0.1 %; Lymphocytes % 16.7; Mean Corp. HGB Concentration 32.9 g/dL (32.0-36.0); Mean Corpuscular Hemoglobin 34.6 pg (27.0-33.0); Mean Corpuscular Volume 105.1 fL (80-95); Mean Platelet Volume 11.4 fL (8.0-11.0); Monocytes % 17.7; Platelet Count 74 x1000/uL (130-400); RBC 3.56 m/cumm (4.50-6.00); RBC Distribution Width 15.2 % (11.8-14.1); White Blood Cell Count 8.87 k/cumm (4.4-10.8)
[2019-12-30 10:20] LABS: INR 1.4 (0.9-1.1); Prothrombin Time 13.8 sec (9.3-11.0)
[2019-12-30 10:21] LABS: Vancomycin, Trough 16.6 ug/mL (10.0-20.0)
[2019-12-30 10:31] LABS: ALT 51 U/L (16-63); AST 100 U/L (15-37); Albumin 2.6 g/dL (3.4-5.0); Alkaline Phosphatase 103 U/L (46-116); Bilirubin, Direct 1.65 mg/dL (0.00-0.20); Magnesium 1.6 mg/dL (1.8-2.4); Total Protein 7.2 g/dL (6.4-8.2)
[2019-12-30 11:00] LABS: Anisocytosis 2+; Diff Comment RBC Morph Reviewed
[2019-12-30 11:01] LABS: Basophilic Stippling Present
[2019-12-30 11:02] LABS: Macrocytosis 1+; Polychromasia Present
--- NOTE | 2019-12-30 11:29 | DI.VRAD_ITS ---
Addendum created by Shawn Butts MD on 12/30/2019 11:30:50 AM EDT THIS REPORT CONTAINS FINDINGS THAT MAY BE CRITICAL TO PATIENT CARE. The findings were verbally communicated via telephone conference with RN Camron Coats at 11:30 AM EDT on 12/30/2019. The findings were acknowledged and understood. Initial report created on 12/30/2019 11:28:52 AM EDT PROCEDURE INFORMATION: Exam: XR Chest, 1 View Exam date and time: 12/30/2019 11:07 AM Age: 54 years old Clinical indication: Other: Follow up aspiration pneumonia TECHNIQUE: Imaging protocol: XR of the chest Views: 1 view. COMPARISON: SR XR PORTABLE CHEST AP POST LINE 12/29/2019 12:52 PM FINDINGS: Tubes, catheters and devices: An enteric feeding tube is present, with its tip located in the stomach in good position. Left PICC line terminates in the right atrium and can be withdrawn 6 cm. Lungs: Opacities in the left base may represent atelectasis or pneumonia. Pleural space: Unremarkable. No pleural effusion. No pneumothorax. Heart/Mediastinum: Stable cardiac silhouette Bones/joints: Unremarkable. IMPRESSION: 1. Left PICC line terminates in the right atrium and can be withdrawn 6 cm. 2. Opacities in the left base may represent atelectasis or pneumonia. Dictated and Authenticated by: Shawn Butts MD. Ordering:BRANDO Singh MD
[2019-12-30] MEDS: Normal Saline 500 ML 30 ML IV (12:26)
[2019-12-30] MEDS: MAGNESIUM SULFATE 2 GM/50 ML BAG IVPB (12:26)
[2019-12-30] MEDS: Omnipaque 350 MG/ML 100 ML BTL IJ (12:51)
--- NOTE | 2019-12-30 12:55 | DI.CT_ITS ---
EXAM: CT HEAD WO CLINICAL HISTORY: prolonged altered mental status TECHNIQUE: COMPARISON: No exams were available for comparison FINDINGS: Noncontrast cranial CT was performed. There was significant motion artifact which degrades imaging. There is moderate generalized cerebral atrophy unusual in this age group. There is no evidence of acute intracranial hemorrhage, mass effect, or midline shift. The orbital and temporal bone structur es appear grossly intact. Mastoid air cells and visualized paranasal sinuses appear clear. IMPRESSION: Prominent atrophy for age. No evidence of acute process.
--- NOTE | 2019-12-30 13:04 | DI.VRAD_ITS ---
PROCEDURE INFORMATION: Exam: CT Head Without Contrast Exam date and time: 12/30/2019 11:08 AM Age: 54 years old Clinical indication: Other: Prolonged AMS TECHNIQUE: Imaging protocol: Computed tomography of the head without contrast. Radiation optimization: All CT scans at this facility use at least one of these dose optimization techniques: automated exposure control; mA and/or kV adjustment per patient size (includes targeted exams where dose is matched to clinical indication); or iterative reconstruction. COMPARISON: No relevant prior studies available. FINDINGS: Brain: No acute intracranial hemorrhage. There is mild diffuse heterogeneity of the white matter attenuation, consistent with chronic white matter ischemic changes. Mild cerebral atrophy Ventricles: Normal. No ventriculomegaly. Bones/joints: Unremarkable. No acute fracture. Sinuses: Visualized sinuses are unremarkable. No fluid levels. Mastoid air cells: Visualized mastoid air cells are well aerated. Soft tissues: Unremarkable. IMPRESSION: No acute intracranial hemorrhage. Dictated and Authenticated by: Shawn Butts MD. Ordering:BRANDO Singh MD
--- NOTE | 2019-12-30 13:08 | DI.CT_ITS ---
EXAM: CT CHEST PE CTA CLINICAL HISTORY: sudden hypoxia; thrombophlebitis RUE, ?PE TECHNIQUE: Axial CT angiography was performed with multi-slice acquisition and multi-planar and/or 3 D reconstructions. COMPARISON: CT CHEST/ABD/PEL W from 12/21/2019 FINDINGS: CT angiography of the chest was performed with bolus infusion of 74 cc of Omnipaque 350. Contrast consuelo sin timing resulted in very little visible contrast in pulmonary arterial circulation, this is a nond iagnostic study for pulmonary embolic disease. Thoracic aorta and major branches grossly intact. Ma rked limitation of imaging also due to marked patient motion. There is left central venous line in p osition, the tip of which lies in the SVC. An NG tube is noted in position with its tip in the stoma ch. Splenic granulomas are noted. Liver grossly unremarkable. No gross mediastinal or hilar adenop athy. There are patchy areas of predominantly lower lobe and posterior consolidative and ground-glass opaci ties. Small bilateral pleural effusions appear to be present. Findings may represent atelectasis an d/or pneumonia, nonspecific. IMPRESSION: Examination is nondiagnostic for pulmonary embolic disease. Bilateral patchy areas of atelectasis and/or consolidation, the findings could represent pneumonia of uncertain etiology.
--- NOTE | 2019-12-30 13:22 | DI.RAD_ITS ---
EXAM: XR PORTABLE CHEST AP POST LINE CLINICAL HISTORY: picc line placement COMPARISON: XR PORTABLE CHEST AP from 12/30/2019 FINDINGS: Portable AP chest and additional view of the left lateral chest wall and upper extremity were obtaine d, no gross contrast extravasation identified. Bilateral patchy intrapulmonary infiltrates with incr easing radiodensities in right mid lung, the findings are consistent with findings identified on CTA of the chest earlier today. IMPRESSION: Increasing right midlung/basilar intrapulmonary radiodensities, suspect pneumonia.
--- NOTE | 2019-12-30 13:46 | DI.VRAD_ITS ---
PROCEDURE INFORMATION: Exam: CT Angiography Chest With Contrast Exam date and time: 12/30/2019 12:51 PM Age: 54 years old Clinical indication: Other: Sudden hypoxia, thrombophlebitis of the rue. ? Pe; Patient HX: Sudden hypoxia. AMS; Additional info: Limited exam due to possible infiltration of central line. Exam not repeated due to possible infiltration. TECHNIQUE: Imaging protocol: Computed tomographic angiography of the chest with intravenous contrast. 3D rendering: MIP and/or 3D reconstructed images were created by the technologist. Radiation optimization: All CT scans at this facility use at least one of these dose optimization techniques: automated exposure control; mA and/or kV adjustment per patient size (includes targeted exams where dose is matched to clinical indication); or iterative reconstruction. Contrast material: OMNIPAQUE 350; Contrast volume: 74 ml; Contrast route: IV; COMPARISON: XR PORTABLE CHEST AP 12/30/2019 11:03 AM FINDINGS: Tubes, catheters and devices: PICC line terminates in the superior vena cava An enteric feeding tube is present, with its tip located in the stomach in good position. Pulmonary arteries: Normal. No pulmonary emboli. Aorta: Nondiagnostic study as all the contrast is in the ascending aorta , aortic arch , and descending aorta. Lungs: Paraseptal Emphysematous changes Patchy ground-glass opacities with some consolidation posteriorly may reflect atelectasis/pneumonia. Nonspecific. Pleural space: Unremarkable. No pneumothorax. No pleural effusion. Heart: Unremarkable. No cardiomegaly. No pericardial effusion. Lymph nodes: Unremarkable. No enlarged lymph nodes. Bones/joints: Unremarkable. No acute fracture. Soft tissues: Unremarkable. Other findings: Motion artifact degrades images. IMPRESSION: 1. Nondiagnostic study as all the contrast is in the ascending aorta , aortic arch , and descending aorta. 2. Patchy ground-glass opacities with some consolidation posteriorly may reflect atelectasis/pneumonia. Nonspecific. Differential includes Covid pneumonia in the appropriate clinical setting Dictated and Authenticated by: Shawn Butts MD. Ordering:BRANDO Singh MD
[2019-12-30] MEDS: Phytonadione 10 MG/ML AMP SC (14:12)
[2019-12-30] MEDS: Bacitracin 1 PACKET (14:32)
--- NOTE | 2019-12-30 15:03 | DI.VRAD_ITS ---
PROCEDURE INFORMATION: Exam: XR Chest, 1 View Exam date and time: 12/30/2019 2:28 PM Age: 54 years old Clinical indication: Other: Picc line placement; Patient HX: Image of humerus added to check for CT contrast infiltration per physician. TECHNIQUE: Imaging protocol: XR of the chest Views: 1 view. COMPARISON: XR PORTABLE CHEST AP 12/30/2019 11:03 AM FINDINGS: Tubes, catheters and devices: A left peripherally inserted central venous catheter lies with its tip in the superior vena cava. An enteric feeding tube is present, with its tip located in the stomach in good position. Lungs: Ground-glass opacities in the lateral right base may represent atelectasis or pneumonia.. Pleural space: Unremarkable. No pleural effusion. No pneumothorax. Heart/Mediastinum: Stable cardiac silhouette Bones/joints: Stable Other findings: Overlying EKG wires No contrast section seen in the soft tissues of the left humerus IMPRESSION: Ground-glass opacities in the lateral right base may represent atelectasis or pneumonia.. Dictated and Authenticated by: Shawn Butts MD. Ordering:BRANDO Singh MD
[2019-12-30 15:24] LABS: HCT 36.7 % (40.0-50.0); HGB 12.3 g/dL (13.5-17.5)
[2019-12-30] MEDS: THIAMINE 500 MG in Normal Saline 100 ML 200 MG IVPB (16:14)
--- NOTE | 2019-12-30 16:36 | W.SURGCON ---
Date of service: 12/30/19 Time of Service: 12:30 Assessment and Plan Assessment and plan (1) Upper GI bleeding: Status: Acute Assessment and plan: The volume is small and his HgB stable. The most likely cause is irritation from NG placement and is probably arising from the nasopharynx. Would leave NG for now as a way to monitor and for possible enteric feeding. Patient would be very high risk for EGD. Continue to observe and follow HgB. Is currently on BID PPI History of Present Illness Narrative: Patient with multiple medical issues was admitted 12/20 with community acquired pneumonia and alcohol intoxication. He was intubated during a withdrawal period and remains somnolent. NG was placed yesterday with some difficulty to hopefully initiate enteral feeding. He also had a PICC line placed yesterday for TPN. Today some bright red blood was noted coming from the NG although at the time of the exam the NG output was clear bile. NO bloody or black stools. He is also having some epistaxsis. He does have Hep C/cirrhosis/portal HTN. Review of Systems Unobtainable due to mental status [facility] Medical History (Updated 12/30/19 @ 09:54 by Samantha Vargas MD) Alcoholic (Chronic) Cirrhosis of liver (Acute) Erectile dysfunction (Chronic) Hepatitis C (Chronic) Hx of drug abuse (Chronic) Left inguinal hernia (Chronic) Right inguinal hernia (Chronic) Surgical History Repair of inguinal hernia (Chronic) left 1996 Social History Smoking/Tobacco Use Status: Current-Occasional Tobacco Type: cigarettes Alcohol Intake: current Alcohol Intake frequency: 3 or more drinks per day Alcohol type: hard liquor Drug use: Never Do you feel safe at home: Yes Exam Narrative Exam Narrative: Patient does not respond to voice Jaundiced NG output bilious Results Last Vital Signs Temp 98.6 F 12/30/19 11:13 Pulse 107 H 12/30/19 11:13 Resp 20 12/30/19 15:00 BP 130/75 12/30/19 11:13 Pulse Ox 93 L 12/30/19 15:00 Labs Result diagrams: 12/30/19 14:40 12/30/19 08:45 Labs: Laboratory Results - last 24 hr 12/30/19 12/30/19 12/30/19 08:45 08:45 08:45 WBC 8.87 RBC 3.56 L Hgb 12.3 L Hct 37.4 L MCV 105.1 H MCH 34.6 H MCHC 32.9 RDW 15.2 H Plt Count 74 L MPV 11.4 H Immature Gran % 0.1 Neutrophils % 64.0 Lymphocytes % 16.7 Monocytes % 17.7 Eosinophils % 1.4 Basophils % 0.1 Absolute Neutrophils 5.68 Absolute Lymphocytes 1.48 Absolute Monocytes 1.57 H Absolute Eosinophils 0.12 Absolute Basophils 0.01 Differential Comment Rbc morph reviewed RBC Morphology See below Polychromasia Present Basophilic Stippling Present Anisocytosis 2+ Macrocytosis 1+ PT INR VBG pH VBG pCO2 VBG pO2 VBG HCO3 VBG Total CO2 VBG O2 Saturation VBG Base Excess Sodium 138 Potassium 3.5 Chloride 104 Carbon Dioxide 27.7 Anion Gap 6.3 BUN 12 D Creatinine 0.69 L Estimated GFR/1.73 m2 >= 60.00 Glucose 106 Calcium 8.4 L Phosphorus Magnesium Total Bilirubin Conjugated Bilirubin AST ALT Alkaline Phosphatase Ammonia Total Protein Albumin Vancomycin Trough 16.6 12/30/19 12/30/19 12/30/19 08:45 08:45 08:45 WBC RBC Hgb Hct MCV MCH MCHC RDW Plt Count MPV Immature Gran % Neutrophils % Lymphocytes % Monocytes % Eosinophils % Basophils % Absolute Neutrophils Absolute Lymphocytes Absolute Monocytes Absolute Eosinophils Absolute Basophils Differential Comment RBC Morphology Polychromasia Basophilic Stippling Anisocytosis Macrocytosis PT 13.8 H INR 1.4 H VBG pH VBG pCO2 VBG pO2 VBG HCO3 VBG Total CO2 VBG O2 Saturation VBG Base Excess Sodium Potassium Chloride Carbon Dioxide Anion Gap BUN Creatinine Estimated GFR/1.73 m2 Glucose Calcium Phosphorus 3.0 Magnesium 1.6 L Total Bilirubin 3.0 H Conjugated Bilirubin 1.65 H AST 100 H ALT 51 Alkaline Phosphatase 103 Ammonia Total Protein 7.2 Albumin 2.6 L Vancomycin Trough 12/30/19 12/30/19 12/30/19 09:36 09:36 14:40 WBC RBC Hgb 12.3 L Hct 36.7 L MCV MCH MCHC RDW Plt Count MPV Immature Gran % Neutrophils % Lymphocytes % Monocytes % Eosinophils % Basophils % Absolute Neutrophils Absolute Lymphocytes Absolute Monocytes Absolute Eosinophils Absolute Basophils Differential Comment RBC Morphology Polychromasia Basophilic Stippling Anisocytosis Macrocytosis PT INR VBG pH 7.41 VBG pCO2 42 VBG pO2 63 H VBG HCO3 27 VBG Total CO2 24 VBG O2 Saturation 92 H VBG Base Excess 1.9 Sodium Potassium Chloride Carbon Dioxide Anion Gap BUN Creatinine Estimated GFR/1.73 m2 Glucose Calcium Phosphorus Magnesium Total Bilirubin Conjugated Bilirubin AST ALT Alkaline Phosphatase Ammonia 38 H Total Protein Albumin Vancomycin Trough
[2019-12-30] MEDS: Lactulose 20 GM/30 ML CUP NG ×2 (17:11→21:00)
[2019-12-30] MEDS: Magnesium Gluconate 500 MG TAB PO (21:00)
[2019-12-30] MEDS: Pantoprazole 40 MG VIAL IVP (21:00)
[2019-12-31] VITALS (37 sets, daily range): BP systolic 117–140; BP diastolic 54–73; PULSE 98–122; RESP 2–27; TEMP 36.9–37.9; O2SAT 91–98
[2019-12-31] MEDS: PIPERACILLIN/TAZO 4.5 GM in Normal Saline 100 ML IVPB ×4 (00:13→23:41)
[2019-12-31] MEDS: THIAMINE 500 MG in Normal Saline 100 ML 200 MG IVPB (00:48)
[2019-12-31] MEDS: Albuterol/Ipratropium 3 ML UPD VIAL UPD ×7 (00:48→23:50)
[2019-12-31] MEDS: Normal Saline Flush 10 ML SYR 20 ML IVP ×3 (05:24→20:28)
[2019-12-31 07:13] LABS: Abs Immature Grans 0.02 k/cumm (0.0-0.09); Absolute Basophil Count 0.02 k/cumm (0.0-0.2); Absolute Lymphocyte Count 1.38 k/cumm (1.2-3.4); Absolute Monocyte Count 1.33 k/cumm (0.11-0.7); Absolute Neutrophil Count 5.14 k/cumm (1.2-6.7); Basophils % 0.2; Eosinophils % 2.5; HCT 34.6 % (40.0-50.0); HGB 11.2 g/dL (13.5-17.5); Immature Grans % 0.2 %; Lymphocytes % 17.1; Mean Corp. HGB Concentration 32.4 g/dL (32.0-36.0); Mean Corpuscular Hemoglobin 34.5 pg (27.0-33.0); Mean Corpuscular Volume 106.5 fL (80-95); Mean Platelet Volume 10.7 fL (8.0-11.0); Monocytes % 16.4; Neutrophils % 63.6; RBC 3.25 m/cumm (4.50-6.00); RBC Distribution Width 15.1 % (11.8-14.1); White Blood Cell Count 8.09 k/cumm (4.4-10.8)
[2019-12-31 07:24] LABS: Magnesium 1.8 mg/dL (1.8-2.4)
[2019-12-31 07:27] LABS: Platelet Count 82 x1000/uL (130-400)
[2019-12-31 07:28] LABS: Macrocytosis 2+
[2019-12-31 07:29] LABS: Anion Gap 2.3 mmol/L (3-11); BUN 15 mg/dL (7-18); CO2 28.7 mmol/L (21.0-32.0); CREATININE 0.75 mg/dL (0.70-1.30); Calcium 8.3 mg/dL (8.5-10.1); Chloride 105 mmol/L (98-107); Glucose 114 mg/dL (74-106); PHOSPHORUS 3.1 mg/dL (2.6-4.7); Sodium 136 mmol/L (136-145)
[2019-12-31 07:30] LABS: ALT 55 U/L (16-63); AST 145 U/L (15-37); Albumin 2.3 g/dL (3.4-5.0); Alkaline Phosphatase 86 U/L (46-116); Bilirubin, Direct 1.48 mg/dL (0.00-0.20); Bilirubin, Total 2.5 mg/dL (0.2-1.0); Total Protein 6.6 g/dL (6.4-8.2)
[2019-12-31] MEDS: Lactulose 20 GM/30 ML CUP NG ×2 (07:55→20:27)
[2019-12-31] MEDS: Magnesium Gluconate 500 MG TAB PO ×2 (07:55→20:28)
[2019-12-31] MEDS: Pantoprazole 40 MG VIAL IVP ×2 (07:55→20:27)
[2019-12-31 07:56] LABS: HCO3 28 mmol/L (22-28); pCO2 48 mmHg (34-47); pH 7.38 (7.35-7.45); pO2 73 mmHg (83-108); sO2 95 % (94-98); tCO2 26 mmol/L (22-29)
[2019-12-31] MEDS: Normal Saline Flush 10 ML SYR IVP (07:57)
[2019-12-31 07:59] LABS: FIO2L 3 L; Site Right Radial
[2019-12-31] MEDS: Budesonide/Formoterol 160/4.5 6 GM 60 PUFF INH IH ×2 (09:33→20:00)
--- NOTE | 2019-12-31 09:39 | PGE_ITS ---
Date of Service Date of service: 12/31/19 Time of Service: 09:40 Assessment and Plan Assessment and plan (1) Upper GI bleeding: Status: Suspected Assessment and plan: Unclear if blood in NGT is from the stomach or swallowed blood from epistaxis - I now favor the latter. Continue IV PPI BID. Keep NGT in. Consider starting TFs today if no further bleeding. He is a high risk for portal gastropathy due to h/o cirrhosis, portal hypertension, varices. (2) Epistaxis: Status: Resolved Assessment and plan: As above - likely due to NGT insertion trauma. Resolved clinically. Received 1 dose of vitamin K. Keep NGT in for now as could be tamponading the bleed as well. Could have resulted in patient swallowing blood and, therefore, bloody NGT contents. (3) Acute metabolic encephalopathy: Status: Acute Assessment and plan: Mixed picture as the patient also got morphine x 3 last night - now d/c'ed. He does have evidence of hepatic encephalopathy/hyperammonemia, for which he was initiated on lactulose. Will trend ammonia. Avoid sedatives as some of the encephalopathy could be due to slow clearance of phenobarb and lorazepam. CT head without acute findings. No evidence of CO2 retention. Monitor mental status off morphine. (4) Left lower lobe pneumonia: Status: Acute Assessment and plan: Continue vanco/zosyn. Qualifiers: Pneumonia type: due to unspecified organism Qualified Code(s): J18.9 - Pneumonia, unspecified organism (5) Ground glass opacity present on imaging of lung: Status: Acute Assessment and plan: With h/o intubation of R main stem bronchus with NGT on 12/29/2019, this is likely due to a new aspiration pneumonia/pneumonitis. COVID 19 negative on this admisssion, and the chances of being infected with it since admission are near zero as everyone in his room has worse a mask, the patient is asymptomatic, and no known positive COVID cases have come in contact with him. I do not believe that retesting is indicated. (6) Nutrition deficiency due to insufficient food: Status: Acute Assessment and plan: Receiving TPN via LUE PICC. Consider TF if no blood in NGT at 24 hrs. (7) Cirrhosis of liver: Status: Acute Assessment and plan: With portal hypertension, varices, encephalopathy, coagulopathy, thromocytopenia. Very high risk for an EGD. Prognosis poor. Mother would like us to pursue the most aggressive care. Palliative care consulted. Qualifiers: Hepatic cirrhosis type: alcoholic cirrhosis Ascites presence: without ascites Qualified Code(s): K70.30 - Alcoholic cirrhosis of liver without ascites (8) Hepatitis C: Status: Chronic Assessment and plan: Contributing to cirrhosis. Untreated. Qualifiers: Viral hepatitis chronicity: chronic Hepatic coma status: without hepatic coma Qualified Code(s): B18.2 - Chronic viral hepatitis C (9) Alcohol withdrawal delirium, acute, hyperactive: Status: Resolved Assessment and plan: No evidence of active alcohol withdrawal at this time. Monitor. (10) Superficial thrombophlebitis of right upper extremity: Status: Acute Assessment and plan: Continue warm compresses. No BP measurements in the RUE. Possible the patient had a PE causing his acute desaturations yesterday - however, CTA yesterday was not successful, and the patient would be a prohibitively high risk for anticoagulation due to his varices/coagulopathy/thrombocytopenia. (11) DVT prophylaxis: Status: Acute Assessment and plan: Chemical DVT ppx contraindicated due to GI bleeding, coagulopathy, thrombocytopenia. Continue TEDs/ SCDs. (12) Discharge planning issues: Status: Acute Assessment and plan: Full code Keep in ICU. Critical Care Time 45 minutes. Subjective Subjective Interval history since last seen: The patient is arousable to loud verbal and painful stimuli today, but does not track, does not answer questions, does not follow commands and, unless he is being actively stimulated, falls promptly back asleep. Required 3 doses of IV morphine overnight - unclear exactly what behavior warranted that or what his mental status was at that time - we are trying to find that out. He has nonlabored breathing this morning. He is on 3L of O2 by oxymask, saturating 95%. No further episodes of epistaxis reported. No further episodes of bright red blood in NGT. Did have a few clots in NGT overnight. New PICC is working well. Exam Narrative Exam Narrative: General: very jaundiced middle-aged male, obtunded, arousable only to loud voice and painful stimuli, not following commands, not answering questions. Not tracking. No tremors or visible asterexis. No evidence of abdominal breathing at this time - looks better from respiratory stand point. HEENT: scleral icterus; unable to evaluate EOM - not tracking; pupils are constricted. Heart: RRR, mildly tachycardic (90's), no m/r/g Lungs: CTAB anteriorly; normal inspiratory effort. Abdomen: soft, nontender, nondistended Extremities: no e/c/c BLE's; trace edema BUEs Objective Objective Clinical Data: Abnormal lab results 12/30/19 12/30/19 12/30/19 Range/Units 08:45 08:45 08:45 RBC 3.56 L (4.50-6.00) m/cumm Hgb 12.3 L (13.5-17.5) g/dL Hct 37.4 L (40.0-50.0) % MCV 105.1 H (80-95) fL MCH 34.6 H (27.0-33.0) pg RDW 15.2 H (11.8-14.1) % Plt Count 74 L (130-400) x1000/uL MPV 11.4 H (8.0-11.0) fL Absolute Monocytes 1.57 H (0.11-0.7) k/cumm PT (9.3-11.0) sec INR (0.9-1.1) ABG pCO2 (34-47) mmHg ABG pO2 (83-108) mmHg VBG pO2 (28-44) mm/Hg VBG O2 Saturation (70-80) % Anion Gap (3-11) mmol/L Creatinine 0.69 L (0.70-1.30) mg/dL Glucose (74-106) mg/dL Calcium 8.4 L (8.5-10.1) mg/dL Magnesium 1.6 L (1.8-2.4) mg/dL Total Bilirubin 3.0 H (0.2-1.0) mg/dL Conjugated Bilirubin 1.65 H (0.00-0.20) mg/dL AST 100 H (15-37) U/L Ammonia (11-32) umol/L Albumin 2.6 L (3.4-5.0) g/dL 12/30/19 12/30/19 12/30/19 Range/Units 08:45 09:36 09:36 RBC (4.50-6.00) m/cumm Hgb (13.5-17.5) g/dL Hct (40.0-50.0) % MCV (80-95) fL MCH (27.0-33.0) pg RDW (11.8-14.1) % Plt Count (130-400) x1000/uL MPV (8.0-11.0) fL Absolute Monocytes (0.11-0.7) k/cumm PT 13.8 H (9.3-11.0) sec INR 1.4 H (0.9-1.1) ABG pCO2 (34-47) mmHg ABG pO2 (83-108) mmHg VBG pO2 63 H (28-44) mm/Hg VBG O2 Saturation 92 H (70-80) % Anion Gap (3-11) mmol/L Creatinine (0.70-1.30) mg/dL Glucose (74-106) mg/dL Calcium (8.5-10.1) mg/dL Magnesium (1.8-2.4) mg/dL Total Bilirubin (0.2-1.0) mg/dL Conjugated Bilirubin (0.00-0.20) mg/dL AST (15-37) U/L Ammonia 38 H (11-32) umol/L Albumin (3.4-5.0) g/dL 12/30/19 12/31/19 12/31/19 Range/Units 14:40 07:00 07:00 RBC 3.25 L (4.50-6.00) m/cumm Hgb 12.3 L 11.2 L (13.5-17.5) g/dL Hct 36.7 L 34.6 L (40.0-50.0) % MCV 106.5 H (80-95) fL MCH 34.5 H (27.0-33.0) pg RDW 15.1 H (11.8-14.1) % Plt Count 82 L (130-400) x1000/uL MPV (8.0-11.0) fL Absolute Monocytes 1.33 H (0.11-0.7) k/cumm PT (9.3-11.0) sec INR (0.9-1.1) ABG pCO2 (34-47) mmHg ABG pO2 (83-108) mmHg VBG pO2 (28-44) mm/Hg VBG O2 Saturation (70-80) % Anion Gap 2.3 L (3-11) mmol/L Creatinine (0.70-1.30) mg/dL Glucose 114 H (74-106) mg/dL Calcium 8.3 L (8.5-10.1) mg/dL Magnesium (1.8-2.4) mg/dL Total Bilirubin (0.2-1.0) mg/dL Conjugated Bilirubin (0.00-0.20) mg/dL AST (15-37) U/L Ammonia (11-32) umol/L Albumin (3.4-5.0) g/dL 12/31/19 12/31/19 Range/Units 07:00 07:59 RBC (4.50-6.00) m/cumm Hgb (13.5-17.5) g/dL Hct (40.0-50.0) % MCV (80-95) fL MCH (27.0-33.0) pg RDW (11.8-14.1) % Plt Count (130-400) x1000/uL MPV (8.0-11.0) fL Absolute Monocytes (0.11-0.7) k/cumm PT (9.3-11.0) sec INR (0.9-1.1) ABG pCO2 48 H (34-47) mmHg ABG pO2 73 L (83-108) mmHg VBG pO2 (28-44) mm/Hg VBG O2 Saturation (70-80) % Anion Gap (3-11) mmol/L Creatinine (0.70-1.30) mg/dL Glucose (74-106) mg/dL Calcium (8.5-10.1) mg/dL Magnesium (1.8-2.4) mg/dL Total Bilirubin 2.5 H (0.2-1.0) mg/dL Conjugated Bilirubin 1.48 H (0.00-0.20) mg/dL AST 145 H (15-37) U/L Ammonia (11-32) umol/L Albumin 2.3 L (3.4-5.0) g/dL Vital Signs Temperature 37.1 C 12/31/19 08:09 Temperature Source Temporal Artery Scan 12/31/19 08:09 Pulse 101 H 12/31/19 09:33 Pulse Rhythm Regular 12/24/19 08:15 Pulse 101 H 12/31/19 08:01 Respiratory Rate 16 12/31/19 09:33 Respiratory Effort Accessory Muscle Use 12/31/19 05:28 Respiratory Depth Deep 12/31/19 05:28 Respiratory Pattern Apneustic 12/31/19 05:28 Blood Pressure 117/54 L 12/31/19 08:01 Blood Pressure Mean 68 12/31/19 08:01 Blood Pressure Position Right Lateral 12/31/19 08:09 Pulse Oximetry 92 L 12/31/19 09:33 Respiratory End-tidal CO2 22 12/29/19 21:00 Oxygen Delivery Method OxyMask 12/31/19 09:22 Oxygen Flow Rate 1 12/31/19 09:22 Fraction of Inspired Oxygen (FIO2) 4 12/30/19 11:13 Pain Level 0 12/31/19 02:26 Comment 12/25/19 07:45 Intake & Output 12/30/19 12/30/19 12/31/19 11:59 23:59 11:59 Intake Total 1980 1875 / 3856 1486 / 1486 Output Total 550 / 1950 1400 / 1950 1051 / 1051 Balance 1431 / 1906 475 / 1906 435 / 435 Intake: IV 1980 187 / 3856 1486 / 1486 Output: Gastric Drainage 0 / 50 50 / 50 1 / 1 Left Nare 50 / 50 Right Nare 0 / 0 1 / 1 Urine 550 / 1900 1350 / 1900 1050 / 1050 Other: Urine Color Dark Héctor Light Héctor Dark Héctor Urine Appearance Clear Clear Urine Odor Strong Comment orange urine in [place]. [place] in place draining héctor urine. [place] in place draining héctor urine. Gastric Occult Blood Left Nare Positive Right Nare Positive Positive Positive Voiding Methods Indwelling Catheter Indwelling Catheter Laboratory Results WBC 8.09 k/cumm (4.4-10.8) 12/31/19 07:00 RBC 3.25 m/cumm (4.50-6.00) L 12/31/19 07:00 Hgb 11.2 g/dL (13.5-17.5) L 12/31/19 07:00 Hct 34.6 % (40.0-50.0) L 12/31/19 07:00 MCV 106.5 fL (80-95) H 12/31/19 07:00 MCH 34.5 pg (27.0-33.0) H 12/31/19 07:00 MCHC 32.4 g/dL (32.0-36.0) 12/31/19 07:00 RDW 15.1 % (11.8-14.1) H 12/31/19 07:00 Plt Count 82 x1000/uL (130-400) L 12/31/19 07:00 MPV 10.7 fL (8.0-11.0) 12/31/19 07:00 Immature Gran % 0.2 % 12/31/19 07:00 Neutrophils % 63.6 12/31/19 07:00 Lymphocytes % 17.1 12/31/19 07:00 Monocytes % 16.4 12/31/19 07:00 Eosinophils % 2.5 12/31/19 07:00 Basophils % 0.2 12/31/19 07:00 Absolute Neutrophils 5.14 k/cumm (1.2-6.7) 12/31/19 07:00 Absolute Lymphocytes 1.38 k/cumm (1.2-3.4) 12/31/19 07:00 Absolute Monocytes 1.33 k/cumm (0.11-0.7) H 12/31/19 07:00 Absolute Eosinophils 0.20 k/cumm (0.0-0.7) 12/31/19 07:00 Absolute Basophils 0.02 k/cumm (0.0-0.2) 12/31/19 07:00 Differential Comment Rbc morph reviewed 12/30/19 08:45 RBC Morphology See below 12/31/19 07:00 Polychromasia Present 12/30/19 08:45 Basophilic Stippling Present 12/30/19 08:45 Anisocytosis 2+ 12/30/19 08:45 Macrocytosis 2+ 12/31/19 07:00 PT 13.8 sec (9.3-11.0) H 12/30/19 08:45 INR 1.4 (0.9-1.1) H 12/30/19 08:45 ABG Sample Site Right radial 12/31/19 07:59 ABG pH 7.38 (7.35-7.45) 12/31/19 07:59 ABG pCO2 48 mmHg (34-47) H 12/31/19 07:59 ABG pO2 73 mmHg (83-108) L 12/31/19 07:59 ABG HCO3 28 mmol/L (22-28) 12/31/19 07:59 ABG Total CO2 26 mmol/L (22-29) 12/31/19 07:59 ABG O2 Saturation 95 % (94-98) 12/31/19 07:59 ABG Base Excess 3.0 mmol/L (-3-3) 12/31/19 07:59 VBG pH 7.41 (7.35-7.45) 12/30/19 09:36 VBG pCO2 42 mm/Hg (34-47) 12/30/19 09:36 VBG pO2 63 mm/Hg (28-44) H 12/30/19 09:36 VBG HCO3 27 mmol/L (22-28) 12/30/19 09:36 VBG Total CO2 24 mmol/L (22-29) 12/30/19 09:36 VBG O2 Saturation 92 % (70-80) H 12/30/19 09:36 VBG Base Excess 1.9 mmol/L (-3-3) 12/30/19 09:36 Oxygen Liter Flow 3 L 12/31/19 07:59 FiO2 Oxymask % 12/31/19 07:59 Sodium 136 mmol/L (136-145) 12/31/19 07:00 Potassium 4.0 mmol/L (3.5-5.1) 12/31/19 07:00 Chloride 105 mmol/L (98-107) 12/31/19 07:00 Carbon Dioxide 28.7 mmol/L (21.0-32.0) 12/31/19 07:00 Anion Gap 2.3 mmol/L (3-11) L 12/31/19 07:00 BUN 15 mg/dL (7-18) 12/31/19 07:00 Creatinine 0.75 mg/dL (0.70-1.30) 12/31/19 07:00 Estimated GFR/1.73 m2 >= 60.00 (mL/min/1.73m2) 12/31/19 07:00 Glucose 114 mg/dL (74-106) H 12/31/19 07:00 Lactate 1.6 mmol/L (0.6-1.4) H 12/22/19 06:31 Calcium 8.3 mg/dL (8.5-10.1) L 12/31/19 07:00 Phosphorus 3.1 mg/dL (2.6-4.7) 12/31/19 07:00 Magnesium 1.8 mg/dL (1.8-2.4) 12/31/19 07:00 Total Bilirubin 2.5 mg/dL (0.2-1.0) H 12/31/19 07:00 Conjugated Bilirubin 1.48 mg/dL (0.00-0.20) H 12/31/19 07:00 AST 145 U/L (15-37) H 12/31/19 07:00 ALT 55 U/L (16-63) 12/31/19 07:00 Alkaline Phosphatase 86 U/L (46-116) 12/31/19 07:00 Ammonia 38 umol/L (11-32) H 12/30/19 09:36 Troponin I < 0.05 ng/Ml (<0.06) 12/22/19 06:31 C-Reactive Protein 1.57 mg/dL (0.0-0.3) H 12/27/19 06:10 NT-Pro-B Natriuret Pep 49 pg/mL (<300) 12/27/19 06:10 Total Protein 6.6 g/dL (6.4-8.2) 12/31/19 07:00 Albumin 2.3 g/dL (3.4-5.0) L 12/31/19 07:00 Lipase 240 U/L (73-393) 12/21/19 19:40 Procalcitonin 0.1 ng/mL 12/27/19 06:10 Urine Color Dark yellow (Yellow) 12/22/19 08:00 Urine Clarity Clear (Clear) 12/22/19 08:00 Urine pH 6.5 (5-8) 12/22/19 08:00 Ur Specific [place] 1.020 (1.005-1.025) 12/22/19 08:00 Urine Protein Negative mg/dL (Negative) 12/22/19 08:00 Urine Ketones Negative mg/dL (Negative) 12/22/19 08:00 Urine Blood Negative (Negative) 12/22/19 08:00 Urine Nitrite Negative (Negative) 12/22/19 08:00 Urine Bilirubin Negative (Negative) 12/22/19 08:00 Urine Urobilinogen >=8.0 EU/dL (Up TO 0.2) 12/22/19 08:00 Ur Leukocyte Esterase Trace (Negative) H 12/22/19 08:00 Urine RBC 0-2 HPF (0-2) 12/22/19 08:00 Urine WBC 5-10 HPF (0-5) 12/22/19 08:00 Ur Epithelial Cells Few HPF (Negative) 12/22/19 08:00 Urine Crystals Negative HPF (Negative) 12/22/19 08:00 Urine Bacteria Rare HPF (Negative) 12/22/19 08:00 Urine Casts Negative LPF (Negative) 12/22/19 08:00 Urine Mucus Moderate (Negative) 12/22/19 08:00 Ur Culture Indicated? Yes 12/22/19 08:00 Urine Glucose Negative mg/dL (Negative) 12/22/19 08:00 Vancomycin Trough 16.6 ug/mL (10.0-20.0) 12/30/19 08:45 Urine Opiates Screen Negative (Negative) 12/21/19 20:30 Urine Methadone Screen Negative (Negative) 12/21/19 20:30 Ur Barbiturates Screen Negative (Negative) 12/21/19 20:30 Ur Tricyclics Screen Negative (Negative) 12/21/19 20:30 Ur Amphetamines Screen Negative (Negative) 12/21/19 20:30 U Benzodiazepines Scrn Negative (Negative) 12/21/19 20:30 Urine Cocaine Screen Negative (Negative) 12/21/19 20:30 Ur THC Screen Negative (Negative) 12/21/19 20:30 Ethyl Alcohol 226.1 mg/dL (<3) 12/22/19 06:31 Coronavirus (PCR) Not detected 12/21/19 22:58 L.pneumophila Antibody Negative (Negative) 12/21/19 23:35 Urine Legionella Ag Negative (Negative) 12/22/19 08:00 M. pneumoniae Source Cancelled 12/21/19 23:47 M. pneumoniae (PCR) Cancelled 12/21/19 23:47 Ur Strep pneumoniae Ag Negative (Negative) 12/22/19 08:00
--- NOTE | 2019-12-31 09:54 | PDOC.CMPRO ---
- If Service Date Differs Date of service: 12/31/19 Time of Service: 09:54 Care Management Progress Note S/O: Lucho remains in the ICU at this time. He continues to show evidence of bloody secretions when orally suctioned. Lucho is awake but unable to communicate. He opens his eyes and is restless but shows no purposeful movement. CM contacted Shivani, Lucho's mother at the request of the ICU staff. Shivani had called and asked if her younger son could be added to Lucho's HIPAA form. CM explained that since this is Lucho's HIPAA, only he, or a legally appointed guardian, could change what he had indicated he wanted. Shivani stated that she understood. She also asked if it would be possible to bring a phone to his room and hold it to his ear so she could talk to him. She felt her voice might have a calming influence. CM facilitated the call but there was no visible response to the call. A:Lucho is a 54 year old male admitted for pneumonia and ETOH withdrawal. P:Disposition to be determined. Lucho remains ICU level of care.. CM to continue to assess, provide support to patient and family and coordinate discharge needs.
--- NOTE | 2019-12-31 10:01 | NUR.NOTE ---
Patients 02 level was 85% on 3L oxygen mask. This nurse applied light sternal rub to arouse patient enough for a good cough to help clear secretions. Patient was able to cough and this nurse was able to perform oral suction at that time. 02 level now 94%. While applying sternal rub pt was able to lift bilateral upper extremities against gravity. Pt was asked to squeeze fingers but was unable to perform that task. Nursing Note:
[2019-12-31] MEDS: Nystatin POWDER 60 GM JAR TP ×3 (10:16→20:00)
[2019-12-31] MEDS: Furosemide 20 MG/2 ML VIAL IVP ×2 (11:01→15:32)
--- NOTE | 2019-12-31 12:46 | W.PM.PROGNOT ---
Date of Service Date of service: 12/31/19 Time of Service: 12:46 Assessment and Plan Assessment and plan (1) Epistaxis: Status: Resolved Assessment and plan: The NG output continues to be clear. I do not think he has had a significant GI bleed. HgB stable. Will monitor. Subjective Subjective Interval history since last seen: Nursing reports frequent desaturations which improve with arousing patient. He is able to generate a weak cough. With suctioning some dark blood is present. Exam Narrative Exam Narrative: Rhonchi present Abdomen soft, nontender NG output is clear bile Objective Objective Clinical Data: Abnormal lab results 12/30/19 12/31/19 12/31/19 Range/Units 14:40 07:00 07:00 RBC 3.25 L (4.50-6.00) m/cumm Hgb 12.3 L 11.2 L (13.5-17.5) g/dL Hct 36.7 L 34.6 L (40.0-50.0) % MCV 106.5 H (80-95) fL MCH 34.5 H (27.0-33.0) pg RDW 15.1 H (11.8-14.1) % Plt Count 82 L (130-400) x1000/uL Absolute Monocytes 1.33 H (0.11-0.7) k/cumm ABG pCO2 (34-47) mmHg ABG pO2 (83-108) mmHg Anion Gap 2.3 L (3-11) mmol/L Glucose 114 H (74-106) mg/dL Calcium 8.3 L (8.5-10.1) mg/dL Total Bilirubin (0.2-1.0) mg/dL Conjugated Bilirubin (0.00-0.20) mg/dL AST (15-37) U/L Albumin (3.4-5.0) g/dL 12/31/19 12/31/19 Range/Units 07:00 07:59 RBC (4.50-6.00) m/cumm Hgb (13.5-17.5) g/dL Hct (40.0-50.0) % MCV (80-95) fL MCH (27.0-33.0) pg RDW (11.8-14.1) % Plt Count (130-400) x1000/uL Absolute Monocytes (0.11-0.7) k/cumm ABG pCO2 48 H (34-47) mmHg ABG pO2 73 L (83-108) mmHg Anion Gap (3-11) mmol/L Glucose (74-106) mg/dL Calcium (8.5-10.1) mg/dL Total Bilirubin 2.5 H (0.2-1.0) mg/dL Conjugated Bilirubin 1.48 H (0.00-0.20) mg/dL AST 145 H (15-37) U/L Albumin 2.3 L (3.4-5.0) g/dL Vital Signs Temperature 99.7 F H 12/31/19 12:03 Temperature Source Temporal Artery Scan 12/31/19 12:03 Pulse 115 H 12/31/19 12:01 Pulse Rhythm Regular 12/24/19 08:15 Pulse 114 H 12/31/19 12:01 Respiratory Rate 19 12/31/19 12:01 Respiratory Effort 12/31/19 12:03 Respiratory Depth Normal 12/31/19 08:09 Respiratory Pattern Normal 12/31/19 08:09 Blood Pressure 138/72 12/31/19 12:01 Blood Pressure Mean 87 12/31/19 12:01 Blood Pressure Position Right Lateral 12/31/19 12:03 Pulse Oximetry 91 L 12/31/19 12:03 Respiratory End-tidal CO2 22 12/29/19 21:00 Oxygen Delivery Method OxyMask 12/31/19 12:03 Oxygen Flow Rate 3 12/31/19 12:03 Fraction of Inspired Oxygen (FIO2) 4 12/30/19 11:13 Pain Level 0 12/31/19 02:26 Comment 12/25/19 07:45 Intake & Output 12/30/19 12/31/19 12/31/19 23:59 11:59 23:59 Intake Total 1874 385 173 / 1736 Output Total 1400 / 1950 1250 Balance 475 / 1906 485 / -295 -780 / -295 Intake: IV 1875 / 3856 173 / 1735 Output: Gastric Drainage 50 / 50 Left Nare 50 / 50 Right Nare Urine 1350 / 1900 [id number] Other: Urine Color Light Héctor Light Héctor Yellow Urine Appearance Clear Clear Clear Urine Odor Strong Comment Johnson in place draining héctor urine. Johnson intact draining clear héctor urine. Gastric Occult Blood Left Nare Positive Right Nare Positive Positive Voiding Methods Indwelling Catheter Indwelling Catheter Laboratory Results WBC 8.09 k/cumm (4.4-10.8) 12/31/19 07:00 RBC 3.25 m/cumm (4.50-6.00) L 12/31/19 07:00 Hgb 11.2 g/dL (13.5-17.5) L 12/31/19 07:00 Hct 34.6 % (40.0-50.0) L 12/31/19 07:00 MCV 106.5 fL (80-95) H 12/31/19 07:00 MCH 34.5 pg (27.0-33.0) H 12/31/19 07:00 MCHC 32.4 g/dL (32.0-36.0) 12/31/19 07:00 RDW 15.1 % (11.8-14.1) H 12/31/19 07:00 Plt Count 82 x1000/uL (130-400) L 12/31/19 07:00 MPV 10.7 fL (8.0-11.0) 12/31/19 07:00 Immature Gran % 0.2 % 12/31/19 07:00 Neutrophils % 63.6 12/31/19 07:00 Lymphocytes % 17.1 12/31/19 07:00 Monocytes % 16.4 12/31/19 07:00 Eosinophils % 2.5 12/31/19 07:00 Basophils % 0.2 12/31/19 07:00 Absolute Neutrophils 5.14 k/cumm (1.2-6.7) 12/31/19 07:00 Absolute Lymphocytes 1.38 k/cumm (1.2-3.4) 12/31/19 07:00 Absolute Monocytes 1.33 k/cumm (0.11-0.7) H 12/31/19 07:00 Absolute Eosinophils 0.20 k/cumm (0.0-0.7) 12/31/19 07:00 Absolute Basophils 0.02 k/cumm (0.0-0.2) 12/31/19 07:00 Differential Comment Rbc morph reviewed 12/30/19 08:45 RBC Morphology See below 12/31/19 07:00 Polychromasia Present 12/30/19 08:45 Basophilic Stippling Present 12/30/19 08:45 Anisocytosis 2+ 12/30/19 08:45 Macrocytosis 2+ 12/31/19 07:00 PT 13.8 sec (9.3-11.0) H 12/30/19 08:45 INR 1.4 (0.9-1.1) H 12/30/19 08:45 ABG Sample Site Right radial 12/31/19 07:59 ABG pH 7.38 (7.35-7.45) 12/31/19 07:59 ABG pCO2 48 mmHg (34-47) H 12/31/19 07:59 ABG pO2 73 mmHg (83-108) L 12/31/19 07:59 ABG HCO3 28 mmol/L (22-28) 12/31/19 07:59 ABG Total CO2 26 mmol/L (22-29) 12/31/19 07:59 ABG O2 Saturation 95 % (94-98) 12/31/19 07:59 ABG Base Excess 3.0 mmol/L (-3-3) 12/31/19 07:59 VBG pH 7.41 (7.35-7.45) 12/30/19 09:36 VBG pCO2 42 mm/Hg (34-47) 12/30/19 09:36 VBG pO2 63 mm/Hg (28-44) H 12/30/19 09:36 VBG HCO3 27 mmol/L (22-28) 12/30/19 09:36 VBG Total CO2 24 mmol/L (22-29) 12/30/19 09:36 VBG O2 Saturation 92 % (70-80) H 12/30/19 09:36 VBG Base Excess 1.9 mmol/L (-3-3) 12/30/19 09:36 Oxygen Liter Flow 3 L 12/31/19 07:59 FiO2 Oxymask % 12/31/19 07:59 Sodium 136 mmol/L (136-145) 12/31/19 07:00 Potassium 4.0 mmol/L (3.5-5.1) 12/31/19 07:00 Chloride 105 mmol/L (98-107) 12/31/19 07:00 Carbon Dioxide 28.7 mmol/L (21.0-32.0) 12/31/19 07:00 Anion Gap 2.3 mmol/L (3-11) L 12/31/19 07:00 BUN 15 mg/dL (7-18) 12/31/19 07:00 Creatinine 0.75 mg/dL (0.70-1.30) 12/31/19 07:00 Estimated GFR/1.73 m2 >= 60.00 (mL/min/1.73m2) 12/31/19 07:00 Glucose 114 mg/dL (74-106) H 12/31/19 07:00 Lactate 1.6 mmol/L (0.6-1.4) H 12/22/19 06:31 Calcium 8.3 mg/dL (8.5-10.1) L 12/31/19 07:00 Phosphorus 3.1 mg/dL (2.6-4.7) 12/31/19 07:00 Magnesium 1.8 mg/dL (1.8-2.4) 12/31/19 07:00 Total Bilirubin 2.5 mg/dL (0.2-1.0) H 12/31/19 07:00 Conjugated Bilirubin 1.48 mg/dL (0.00-0.20) H 12/31/19 07:00 AST 145 U/L (15-37) H 12/31/19 07:00 ALT 55 U/L (16-63) 12/31/19 07:00 Alkaline Phosphatase 86 U/L (46-116) 12/31/19 07:00 Ammonia 38 umol/L (11-32) H 12/30/19 09:36 Troponin I < 0.05 ng/Ml (<0.06) 12/22/19 06:31 C-Reactive Protein 1.57 mg/dL (0.0-0.3) H 12/27/19 06:10 NT-Pro-B Natriuret Pep 49 pg/mL (<300) 12/27/19 06:10 Total Protein 6.6 g/dL (6.4-8.2) 12/31/19 07:00 Albumin 2.3 g/dL (3.4-5.0) L 12/31/19 07:00 Lipase 240 U/L (73-393) 12/21/19 19:40 Procalcitonin 0.1 ng/mL 12/27/19 06:10 Urine Color Dark yellow (Yellow) 12/22/19 08:00 Urine Clarity Clear (Clear) 12/22/19 08:00 Urine pH 6.5 (5-8) 12/22/19 08:00 Ur Specific [place] 1.020 (1.005-1.025) 12/22/19 08:00 Urine Protein Negative mg/dL (Negative) 12/22/19 08:00 Urine Ketones Negative mg/dL (Negative) 12/22/19 08:00 Urine Blood Negative (Negative) 12/22/19 08:00 Urine Nitrite Negative (Negative) 12/22/19 08:00 Urine Bilirubin Negative (Negative) 12/22/19 08:00 Urine Urobilinogen >=8.0 EU/dL (Up TO 0.2) 12/22/19 08:00 Ur Leukocyte Esterase Trace (Negative) H 12/22/19 08:00 Urine RBC 0-2 HPF (0-2) 12/22/19 08:00 Urine WBC 5-10 HPF (0-5) 12/22/19 08:00 Ur Epithelial Cells Few HPF (Negative) 12/22/19 08:00 Urine Crystals Negative HPF (Negative) 12/22/19 08:00 Urine Bacteria Rare HPF (Negative) 12/22/19 08:00 Urine Casts Negative LPF (Negative) 12/22/19 08:00 Urine Mucus Moderate (Negative) 12/22/19 08:00 Ur Culture Indicated? Yes 12/22/19 08:00 Urine Glucose Negative mg/dL (Negative) 12/22/19 08:00 Vancomycin Trough 16.6 ug/mL (10.0-20.0) 12/30/19 08:45 Urine Opiates Screen Negative (Negative) 12/21/19 20:30 Urine Methadone Screen Negative (Negative) 12/21/19 20:30 Ur Barbiturates Screen Negative (Negative) 12/21/19 20:30 Ur Tricyclics Screen Negative (Negative) 12/21/19 20:30 Ur Amphetamines Screen Negative (Negative) 12/21/19 20:30 U Benzodiazepines Scrn Negative (Negative) 12/21/19 20:30 Urine Cocaine Screen Negative (Negative) 12/21/19 20:30 Ur THC Screen Negative (Negative) 12/21/19 20:30 Ethyl Alcohol 226.1 mg/dL (<3) 12/22/19 06:31 Coronavirus (PCR) Not detected 12/21/19 22:58 L.pneumophila Antibody Negative (Negative) 12/21/19 23:35 Urine Legionella Ag Negative (Negative) 12/22/19 08:00 M. pneumoniae Source Cancelled 12/21/19 23:47 M. pneumoniae (PCR) Cancelled 12/21/19 23:47 Ur Strep pneumoniae Ag Negative (Negative) 12/22/19 08:00
--- NOTE | 2019-12-31 13:15 | DI.RAD_ITS ---
EXAM: XR PORTABLE CHEST AP CLINICAL HISTORY: concern for CHF TECHNIQUE: COMPARISON: XR PORTABLE CHEST AP POST LINE from 12/30/2019 FINDINGS: Portable AP chest at 1305 hours. PICC line terminating in SVC, NG tube terminating the stomach. Mil dly increased radiodensities in right lung base and mid lung in comparison with yesterday's examinati on. Little interval change in mild left basilar radiodensities. IMPRESSION: There is some apparent increase in right basilar and mid lung radiodensities, suspect worsening pneum onia, appropriate follow-up studies requested.
--- NOTE | 2019-12-31 13:31 | DI.VRAD_ITS ---
PROCEDURE INFORMATION: Exam: XR Chest, 1 View Exam date and time: 12/31/2019 1:08 PM Age: 54 years old Clinical indication: Other: Concern for chf TECHNIQUE: Imaging protocol: XR of the chest Views: 1 view. COMPARISON: CR XR PORTABLE CHEST AP POST LINE 12/30/2019 2:25 PM FINDINGS: Tubes, catheters and devices: This chest x-ray may be mislabeled according to side. The patient is very rotated. There is a PICC line that terminates opposite to the arm it enters. Consequently this is thought to represent a left PICC line terminating in the superior vena cava. The chest x-ray is not labeled that way . Consider repeat chest film with appropriate labeling. An enteric feeding tube is present, with its tip located in the stomach in good position. Lungs: Patchy opacities in the bases may represent atelectasis or pneumonia. Pleural space: Unremarkable. No pleural effusion. No pneumothorax. Heart/Mediastinum: Cardiomegaly Bones/joints: Unremarkable. IMPRESSION: 1. This chest x-ray may be mislabeled according to side. The patient is very rotated. There is a PICC line that terminates opposite to the arm it enters. Consequently this is thought to represent a left PICC line terminating in the superior vena cava. The chest x-ray is not labeled that way . Consider repeat chest film with appropriate labeling. 2. Patchy opacities in the bases may represent atelectasis or pneumonia. Dictated and Authenticated by: Shawn Butts MD. Ordering:BRANDO Singh MD
[2019-12-31 14:17] LABS: Bilirubin Negative (Negative); Blood Moderate (Negative); Clarity Clear (Clear); Glucose Negative (Negative); Ketones Negative (Negative); Leukocyte Esterase Negative (Negative); Nitrite Negative (Negative); Urobilinogen >=8.0 EU/dL (Up TO 0.2)
[2019-12-31 14:29] LABS: Bacteria Negative HPF (Negative); C & S Indicated? C&S Done As Ordered; Casts Negative LPF (Negative); Crystals Negative HPF (Negative); Epithelial Cells Rare HPF (Negative); Mucus Negative (Negative); RBC >50 HPF (0-2); WBC 0-2 HPF (0-5)
[2020-01-01] VITALS (42 sets, daily range): BP systolic 122–146; BP diastolic 61–74; PULSE 100–115; RESP 2–27; TEMP 36.7–37.7; O2SAT 87–99
--- NOTE | 2020-01-01 | DI.RAD_ITS ---
EXAM: XR PORTABLE CHEST AP CLINICAL HISTORY: follow up PNA/CHF TECHNIQUE: COMPARISON: XR PORTABLE CHEST AP from 12/31/2019 FINDINGS: Portable AP chest at 0850 hours. NG tube and PICC line again noted in position. Cardiac size within normal limits. Minimal left basilar streaky radiodensities. Decreased right basilar radiodensities in comparison with yesterday's examination. IMPRESSION: Probable slight interval improvement in right basilar radiodensities.
[2020-01-01] MEDS: Normal Saline Flush 10 ML SYR 20 ML IVP ×3 (00:13→20:15)
--- NOTE | 2020-01-01 02:46 | NUR.NOTE ---
Multiple sternal rubs performed;eyebrow pinch performed; nailbed squeeze performed;also spoke loudly to pt--he does not open his eyes;he does furrow his eyebrows in response to painful stimulus. Nursing Note:
[2020-01-01] MEDS: Albuterol/Ipratropium 3 ML UPD VIAL UPD ×6 (04:05→23:23)
[2020-01-01 06:53] LABS: Abs Immature Grans 0.02 k/cumm (0.0-0.09); Absolute Basophil Count 0.03 k/cumm (0.0-0.2); Absolute Eosinophil Count 0.13 k/cumm (0.0-0.7); Absolute Lymphocyte Count 1.32 k/cumm (1.2-3.4); Absolute Monocyte Count 1.22 k/cumm (0.11-0.7); Absolute Neutrophil Count 4.86 k/cumm (1.2-6.7); Basophils % 0.4; Eosinophils % 1.7; HGB 11.6 g/dL (13.5-17.5); Immature Grans % 0.3 %; Lymphocytes % 17.4; Mean Corp. HGB Concentration 33.1 g/dL (32.0-36.0); Mean Corpuscular Hemoglobin 34.6 pg (27.0-33.0); Mean Corpuscular Volume 104.5 fL (80-95); Mean Platelet Volume 10.6 fL (8.0-11.0); Monocytes % 16.1; Neutrophils % 64.1; RBC 3.35 m/cumm (4.50-6.00); RBC Distribution Width 14.7 % (11.8-14.1); White Blood Cell Count 7.58 k/cumm (4.4-10.8)
[2020-01-01 07:01] LABS: INR 1.4 (0.9-1.1); Prothrombin Time 14.3 sec (9.3-11.0)
[2020-01-01 07:03] LABS: Ammonia 41 umol/L (11-32)
[2020-01-01 07:13] LABS: Platelet Count 90 x1000/uL (130-400)
[2020-01-01 07:14] LABS: Macrocytosis 1+
[2020-01-01] MEDS: PIPERACILLIN/TAZO 4.5 GM in Normal Saline 100 ML IVPB ×3 (08:02→23:21)
[2020-01-01] MEDS: Budesonide/Formoterol 160/4.5 6 GM 60 PUFF INH IH ×2 (08:02→20:16)
[2020-01-01] MEDS: Pantoprazole 40 MG VIAL IVP ×2 (08:03→20:14)
[2020-01-01] MEDS: Lactulose 20 GM/30 ML CUP NG ×2 (08:03→20:13)
[2020-01-01] MEDS: Furosemide 20 MG/2 ML VIAL IVP ×2 (08:03→16:22)
[2020-01-01 08:48] LABS: ALT 63 U/L (16-63); AST 155 U/L (15-37); Albumin 2.3 g/dL (3.4-5.0); Alkaline Phosphatase 85 U/L (46-116); Anion Gap 4.9 mmol/L (3-11); BUN 15 mg/dL (7-18); Bilirubin, Direct 1.25 mg/dL (0.00-0.20); Bilirubin, Total 2.4 mg/dL (0.2-1.0); C-Reactive Protein 5.73 mg/dL (0.0-0.3); CO2 29.1 mmol/L (21.0-32.0); CREATININE 0.79 mg/dL (0.70-1.30); Calcium 8.8 mg/dL (8.5-10.1); Chloride 102 mmol/L (98-107); Glucose 115 mg/dL (74-106); Magnesium 1.6 mg/dL (1.8-2.4); Potassium 3.6 mmol/L (3.5-5.1); Sodium 136 mmol/L (136-145); Total Protein 6.9 g/dL (6.4-8.2)
[2020-01-01 08:49] LABS: PHOSPHORUS 2.8 mg/dL (2.6-4.7)
[2020-01-01] MEDS: Rifaximin 550 MG TAB NG ×2 (09:15→20:13)
[2020-01-01 09:19] LABS: Procalcitonin 0.1 ng/mL
[2020-01-01] MEDS: Nystatin POWDER 60 GM JAR TP ×3 (09:22→20:16)
--- NOTE | 2020-01-01 09:36 | PGE_ITS ---
Date of Service Date of service: 01/01/20 Time of Service: 09:36 Assessment and Plan Assessment and plan (1) Upper GI bleeding: Status: Ruled-out Assessment and plan: Blood in NGT is likely due to NGT insertion trauma and epistaxis. Will trial tube feeding today via NGT. Continue IV PPI BID. High risk for portal gastropathy due to h/o cirrhosis, portal hypertension, varices. (2) Epistaxis: Status: Resolved Assessment and plan: As above - likely due to NGT insertion trauma. Resolved. S/p 1 dose of vitamin K. Keep NGT in for now as could be tamponading the bleed as well. Could have resulted in patient swallowing blood and, therefore, bloody NGT contents. (3) Acute metabolic encephalopathy: Status: Acute Assessment and plan: He does have evidence of hepatic encephalopathy/hyperammonemia, but also likely has delayed clearance of phenobarb/lorazepam. Ammonia still elevated despite starting lactulose. Add rifaxamin. Avoid sedatives. CT head without acute findings. No evidence of CO2 retention. Monitor mental status off morphine. (4) Left lower lobe pneumonia: Status: Acute Assessment and plan: Continue vanco/zosyn. Qualifiers: Pneumonia type: due to unspecified organism Qualified Code(s): J18.9 - Pneumonia, unspecified organism (5) Ground glass opacity present on imaging of lung: Status: Acute Assessment and plan: With h/o intubation of R main stem bronchus with NGT on 12/29/2019, this is likely due to a new aspiration pneumonia/pneumonitis. Fluid overload likely also a factor - continue lasix. Start steroids to help with pneumonitis. COVID 19 negative on this admisssion, and the chances of being infected with it since admission are near zero as everyone in his room has worse a mask, the patient is asymptomatic, and no known positive COVID cases have come in contact with him. I do not believe that retesting is indicated. (6) Nutrition deficiency due to insufficient food: Status: Acute Assessment and plan: D/c TPN. Start TFs. (7) Cirrhosis of liver: Status: Acute Assessment and plan: With portal hypertension, varices, encephalopathy, coagulopathy, thromocytopenia. Very high risk for an EGD. Prognosis poor. Mother would like us to pursue the most aggressive care. Palliative care consulted. Qualifiers: Hepatic cirrhosis type: alcoholic cirrhosis Ascites presence: without ascites Qualified Code(s): K70.30 - Alcoholic cirrhosis of liver without ascites (8) Hepatitis C: Status: Chronic Assessment and plan: Contributing to cirrhosis. Untreated. Qualifiers: Viral hepatitis chronicity: chronic Hepatic coma status: without hepatic coma Qualified Code(s): B18.2 - Chronic viral hepatitis C (9) Alcohol withdrawal delirium, acute, hyperactive: Status: Resolved Assessment and plan: No evidence of active alcohol withdrawal at this time. Monitor. (10) Superficial thrombophlebitis of right upper extremity: Status: Acute Assessment and plan: Continue warm compresses. No BP measurements in the RUE. Possible the patient had a PE causing his acute desaturations yesterday - ho [place], CTA yesterday was not successful, and the patient would be a prohibitively high risk for anticoagulation due to his varices/coagulopathy/thrombocytopenia. (11) DVT prophylaxis: Status: Acute Assessment and plan: Chemical DVT ppx contraindicated due to GI bleeding, coagulopathy, thrombocytopenia. Continue TEDs/ SCDs. (12) Discharge planning issues: Status: Acute Assessment and plan: Full code Keep in ICU. Subjective Subjective Interval history since last seen: Mr Francois wakes up with painful stimuli enough to open his eyes but does not follow commands. He falls promptly back asleep. He is not answering questions. No bleeding per NGT reported. He is requiring 3-4 L of O2. His Tmax is 37.9. Blood cultures are pending. Exam Narrative Exam Narrative: General: very jaundiced middle-aged male, obtunded, arousable to painful stimuli, not following commands, not answering questions. Not tracking. No tremors or visible asterexis. No evidence of abdominal catalina athing at this time. Snoring. HEENT: scleral icterus; unable to evaluate EOM - not tracking; pupils are no longer constricted. Heart: RRR, no m/r/g Lungs: CTAB anteriorly/diminished; normal inspiratory effort. Abdomen: soft, nontender, nondistended Extremities: trace edema BLE's, no c/c BLE's;+1 edema BUEs Objective Objective Clinical Data: Abnormal lab results 12/31/19 01/01/20 01/01/20 Range/Units 13:50 06:35 06:35 RBC (4.50-6.00) m/cumm Hgb (13.5-17.5) g/dL Hct (40.0-50.0) % MCV (80-95) fL MCH (27.0-33.0) pg RDW (11.8-14.1) % Plt Count (130-400) x1000/uL Absolute Monocytes (0.11-0.7) k/cumm PT (9.3-11.0) sec INR (0.9-1.1) Glucose 115 H (74-106) mg/dL Magnesium 1.6 L (1.8-2.4) mg/dL Total Bilirubin 2.4 H (0.2-1.0) mg/dL Conjugated Bilirubin 1.25 H (0.00-0.20) mg/dL AST 155 H (15-37) U/L Ammonia 41 H (11-32) umol/L C-Reactive Protein 5.73 H (0.0-0.3) mg/dL Albumin 2.3 L (3.4-5.0) g/dL Urine Blood Moderate H (Negative) Urine RBC >50 H (0-2) HPF 01/01/20 01/01/20 Range/Units 06:35 06:35 RBC 3.35 L (4.50-6.00) m/cumm Hgb 11.6 L (13.5-17.5) g/dL Hct 35.0 L (40.0-50.0) % MCV 104.5 H (80-95) fL MCH 34.6 H (27.0-33.0) pg RDW 14.7 H (11.8-14.1) % Plt Count 90 L (130-400) x1000/uL Absolute Monocytes 1.22 H (0.11-0.7) k/cumm PT 14.3 H (9.3-11.0) sec INR 1.4 H (0.9-1.1) Glucose (74-106) mg/dL Magnesium (1.8-2.4) mg/dL Total Bilirubin (0.2-1.0) mg/dL Conjugated Bilirubin (0.00-0.20) mg/dL AST (15-37) U/L Ammonia (11-32) umol/L C-Reactive Protein (0.0-0.3) mg/dL Albumin (3.4-5.0) g/dL Urine Blood (Negative) Urine RBC (0-2) HPF Vital Signs Temperature 37.7 C H 01/01/20 03:57 Temperature Source Temporal Artery Scan 01/01/20 00:05 Pulse 100 H 01/01/20 09:02 Pulse Rhythm Regular 12/24/19 08:15 Pulse 103 H 01/01/20 09:02 Respiratory Rate 21 01/01/20 09:02 Respiratory Effort 01/01/20 00:05 Respiratory Depth Deep 01/01/20 00:05 Respiratory Pattern Tachypnea 01/01/20 00:05 Blood Pressure 144/66 H 01/01/20 09:02 Blood Pressure Mean 87 01/01/20 09:02 Blood Pressure Position Supine 12/31/19 19:47 Pulse Oximetry 91 L 01/01/20 09:02 Respiratory End-tidal CO2 22 12/29/19 21:00 Oxygen Delivery Method OxyMask 01/01/20 08:18 Oxygen Flow Rate 3 01/01/20 08:18 Fraction of Inspired Oxygen (FIO2) 4 12/30/19 11:13 Pain Level 0 12/31/19 19:47 Comment 12/25/19 07:45 Intake & Output 12/31/19 12/31/19 01/01/20 11:59 23:59 11:59 Intake Total 1736 / 4035 2299 / 4035 1632 / 1632 Output Total 1251 / 3706 2455 / 3706 2051 Balance 485 / 329 -156 / 329 -420 / -420 Intake: IV 1736 / 4035 2299 / 4035 1632 / 1632 Output: Gastric Drainage 2 / 2 Right Nare 2 / 2 Urine 1250 / 3705 2455 / 3705 2049 Other: Urine Color Light Héctor Straw Dark Héctor Urine Appearance Clear Clear Clear Comment [place] intact draining clear héctor urine. pt has indwelling mon[place] cath draining clear héctor urine [place] is patent and draining darkish héctor, clear colored urine. Stool Size Small Smear Stool Characteristics Soft Brown Gastric Occult Blood Right Nare Positive Positive Voiding Methods Indwelling Catheter Laboratory Results WBC 7.58 k/cumm (4.4-10.8) 01/01/20 06:35 RBC 3.35 m/cumm (4.50-6.00) L 01/01/20 06:35 Hgb 11.6 g/dL (13.5-17.5) L 01/01/20 06:35 Hct 35.0 % (40.0-50.0) L 01/01/20 06:35 MCV 104.5 fL (80-95) H 01/01/20 06:35 MCH 34.6 pg (27.0-33.0) H 01/01/20 06:35 MCHC 33.1 g/dL (32.0-36.0) 01/01/20 06:35 RDW 14.7 % (11.8-14.1) H 01/01/20 06:35 Plt Count 90 x1000/uL (130-400) L 01/01/20 06:35 MPV 10.6 fL (8.0-11.0) 01/01/20 06:35 Immature Gran % 0.3 % 01/01/20 06:35 Neutrophils % 64.1 01/01/20 06:35 Lymphocytes % 17.4 01/01/20 06:35 Monocytes % 16.1 01/01/20 06:35 Eosinophils % 1.7 01/01/20 06:35 Basophils % 0.4 01/01/20 06:35 Absolute Neutrophils 4.86 k/cumm (1.2-6.7) 01/01/20 06:35 Absolute Lymphocytes 1.32 k/cumm (1.2-3.4) 01/01/20 06:35 Absolute Monocytes 1.22 k/cumm (0.11-0.7) H 01/01/20 06:35 Absolute Eosinophils 0.13 k/cumm (0.0-0.7) 01/01/20 06:35 Absolute Basophils 0.03 k/cumm (0.0-0.2) 01/01/20 06:35 Differential Comment Rbc morph reviewed 12/30/19 08:45 RBC Morphology See below 01/01/20 06:35 Polychromasia Present 12/30/19 08:45 Basophilic Stippling Present 12/30/19 08:45 Anisocytosis 2+ 12/30/19 08:45 Macrocytosis 1+ 01/01/20 06:35 PT 14.3 sec (9.3-11.0) H 01/01/20 06:35 INR 1.4 (0.9-1.1) H 01/01/20 06:35 ABG Sample Site Right radial 12/31/19 07:59 ABG pH 7.38 (7.35-7.45) 12/31/19 07:59 ABG pCO2 48 mmHg (34-47) H 12/31/19 07:59 ABG pO2 73 mmHg (83-108) L 12/31/19 07:59 ABG HCO3 28 mmol/L (22-28) 12/31/19 07:59 ABG Total CO2 26 mmol/L (22-29) 12/31/19 07:59 ABG O2 Saturation 95 % (94-98) 12/31/19 07:59 ABG Base Excess 3.0 mmol/L (-3-3) 12/31/19 07:59 VBG pH 7.41 (7.35-7.45) 12/30/19 09:36 VBG pCO2 42 mm/Hg (34-47) 12/30/19 09:36 VBG pO2 63 mm/Hg (28-44) H 12/30/19 09:36 VBG HCO3 27 mmol/L (22-28) 12/30/19 09:36 VBG Total CO2 24 mmol/L (22-29) 12/30/19 09:36 VBG O2 Saturation 92 % (70-80) H 12/30/19 09:36 VBG Base Excess 1.9 mmol/L (-3-3) 12/30/19 09:36 Oxygen Liter Flow 3 L 12/31/19 07:59 FiO2 Oxymask % 12/31/19 07:59 Sodium 136 mmol/L (136-145) 01/01/20 06:35 Potassium 3.6 mmol/L (3.5-5.1) 01/01/20 06:35 Chloride 102 mmol/L (98-107) 01/01/20 06:35 Carbon Dioxide 29.1 mmol/L (21.0-32.0) 01/01/20 06:35 Anion Gap 4.9 mmol/L (3-11) 01/01/20 06:35 BUN 15 mg/dL (7-18) 01/01/20 06:35 Creatinine 0.79 mg/dL (0.70-1.30) 01/01/20 06:35 Estimated GFR/1.73 m2 >= 60.00 (mL/min/1.73m2) 01/01/20 06:35 Glucose 115 mg/dL (74-106) H 01/01/20 06:35 Lactate 1.6 mmol/L (0.6-1.4) H 12/22/19 06:31 Calcium 8.8 mg/dL (8.5-10.1) 01/01/20 06:35 Phosphorus 2.8 mg/dL (2.6-4.7) 01/01/20 06:35 Magnesium 1.6 mg/dL (1.8-2.4) L 01/01/20 06:35 Total Bilirubin 2.4 mg/dL (0.2-1.0) H 01/01/20 06:35 Conjugated Bilirubin 1.25 mg/dL (0.00-0.20) H 01/01/20 06:35 AST 155 U/L (15-37) H 01/01/20 06:35 ALT 63 U/L (16-63) 01/01/20 06:35 Alkaline Phosphatase 85 U/L (46-116) 01/01/20 06:35 Ammonia 41 umol/L (11-32) H 01/01/20 06:35 Troponin I < 0.05 ng/Ml (<0.06) 12/22/19 06:31 C-Reactive Protein Cancelled 01/01/20 08:02 NT-Pro-B Natriuret Pep 49 pg/mL (<300) 12/27/19 06:10 Total Protein 6.9 g/dL (6.4-8.2) 01/01/20 06:35 Albumin 2.3 g/dL (3.4-5.0) L 01/01/20 06:35 Lipase 240 U/L (73-393) 12/21/19 19:40 Procalcitonin 0.1 ng/mL 01/01/20 06:35 Urine Color Yellow (Yellow) 12/31/19 13:50 Urine Clarity Clear (Clear) 12/31/19 13:50 Urine pH 7.0 (5-8) 12/31/19 13:50 Ur Specific [place] 1.020 (1.005-1.025) 12/31/19 13:50 Urine Protein Negative mg/dL (Negative) 12/31/19 13:50 Urine Ketones Negative mg/dL (Negative) 12/31/19 13:50 Urine Blood Moderate (Negative) H 12/31/19 13:50 Urine Nitrite Negative (Negative) 12/31/19 13:50 Urine Bilirubin Negative (Negative) 12/31/19 13:50 Urine Urobilinogen >=8.0 EU/dL (Up TO 0.2) 12/31/19 13:50 Ur Leukocyte Esterase Negative (Negative) 12/31/19 13:50 Urine RBC >50 HPF (0-2) H 12/31/19 13:50 Urine WBC 0-2 HPF (0-5) 12/31/19 13:50 Ur Epithelial Cells Rare HPF (Negative) 12/31/19 13:50 Urine Crystals Negative HPF (Negative) 12/31/19 13:50 Urine Bacteria Negative HPF (Negative) 12/31/19 13:50 Urine Casts Negative LPF (Negative) 12/31/19 13:50 Urine Mucus Negative (Negative) 12/31/19 13:50 Ur Culture Indicated? C&s done as ordered 12/31/19 13:50 Urine Glucose Negative mg/dL (Negative) 12/31/19 13:50 Vancomycin Trough 16.6 ug/mL (10.0-20.0) 12/30/19 08:45 Urine Opiates Screen Negative (Negative) 12/21/19 20:30 Urine Methadone Screen Negative (Negative) 12/21/19 20:30 Ur Barbiturates Screen Negative (Negative) 12/21/19 20:30 Ur Tricyclics Screen Negative (Negative) 12/21/19 20:30 Ur Amphetamines Screen Negative (Negative) 12/21/19 20:30 U Benzodiazepines Scrn Negative (Negative) 12/21/19 20:30 Urine Cocaine Screen Negative (Negative) 12/21/19 20:30 Ur THC Screen Negative (Negative) 12/21/19 20:30 Ethyl Alcohol 226.1 mg/dL (<3) 12/22/19 06:31 Coronavirus (PCR) Not detected 12/21/19 22:58 L.pneumophila Antibody Negative (Negative) 12/21/19 23:35 Urine Legionella Ag Negative (Negative) 12/22/19 08:00 M. pneumoniae Source Cancelled 12/21/19 23:47 M. pneumoniae (PCR) Cancelled 12/21/19 23:47 Ur Strep pneumoniae Ag Negative (Negative) 12/22/19 08:00
--- NOTE | 2020-01-01 10:20 | W.NUTRFU ---
Date of service: 01/01/20 Time of Service: 10:20 Nutritional Follow up NOTE: Tube feeding not initiated due to possible GI bleed, ruled out. Received TPN per MD note over weekend. Due to long prolonged period of no po/enteral intake, recommend starting tube feeding at 20cc/hour, if tolerated, increase 20 cc per hour until goal rate of 60 cc/hour reached. Flush 150 cc q 6 hours. Labs indicate increase in ammonia level despite lactulouse on board, may be due to lean body mass catabolism. Enteral nutrition vital to reduce catabolic state and waste products there of. Tube feeding recommendation will provide 20 kcal/kg, 1 g pro/kg, monitor ammonia levels daily. Will be available prn. Time Spent in Nutritional Counseling and Treatment: 0 time spent face to face
[2020-01-01] MEDS: Bisacodyl 10 MG SUPP PR ×2 (11:00→11:06)
[2020-01-01] MEDS: Magnesium Oxide 400 MG TAB NG ×2 (11:05→20:13)
[2020-01-01] MEDS: Thiamine 100 MG TAB NG (11:06)
[2020-01-01] MEDS: MAGNESIUM SULFATE 2 GM/50 ML BAG IVPB (11:07)
[2020-01-01] MEDS: methylPREDNISolone SUCC 125 MG VIAL 60 MG IVP ×2 (11:07→18:24)
[2020-01-01] MEDS: Normal Saline Flush 10 ML SYR IVP ×3 (11:08→23:29)
--- NOTE | 2020-01-01 11:46 | PDOC.CMPRO ---
- If Service Date Differs Date of service: 01/01/20 Time of Service: 11:46 Care Management Progress Note S/O: Lucho remains in the ICU at this time. No change in status, palliative to consult today his mother is next of Kin and the only person to notify at this time. Lucho is not able to make decisions at this time per provider and his ammonia levels remain elevated. He continues on lactulose. He also continues on steroids and antibiotics to treat pneumonia. A:Lucho is a 54 year old male admitted for pneumonia and ETOH withdrawal. P:Disposition to be determined. Lucho remains ICU level of care. Palliative to consult today, time to be determined. CM will arrange for Mom to be present over the phone. CM to continue to assess, provide support to patient and family and coordinate discharge needs.
--- NOTE | 2020-01-01 16:46 | W.PM.PROGNOT ---
Date of Service Date of service: 01/01/20 Time of Service: 10:00 Assessment and Plan Assessment and plan (1) Epistaxis: Status: Resolved Assessment and plan: He continues to show no signs of active GI bleeding. HgB stable Will sign off for now, please contact surgeon sponge fisherman with concerns. Subjective Subjective Interval history since last seen: Nurses report no significant bloody NG output. A few small, old clots are seen occasionally. No significant BM, including no bloody or black stools. Exam Narrative Exam Narrative: Still minimally responsive. NG output bilious Objective Objective Clinical Data: Abnormal lab results 01/01/20 01/01/20 01/01/20 Range/Units 06:35 06:35 06:35 RBC 3.35 L (4.50-6.00) m/cumm Hgb 11.6 L (13.5-17.5) g/dL Hct 35.0 L (40.0-50.0) % MCV 104.5 H (80-95) fL MCH 34.6 H (27.0-33.0) pg RDW 14.7 H (11.8-14.1) % Plt Count 90 L (130-400) x1000/uL Absolute Monocytes 1.22 H (0.11-0.7) k/cumm PT (9.3-11.0) sec INR (0.9-1.1) Glucose 115 H (74-106) mg/dL Magnesium 1.6 L (1.8-2.4) mg/dL Total Bilirubin 2.4 H (0.2-1.0) mg/dL Conjugated Bilirubin 1.25 H (0.00-0.20) mg/dL AST 155 H (15-37) U/L Ammonia 41 H (11-32) umol/L C-Reactive Protein 5.73 H (0.0-0.3) mg/dL Albumin 2.3 L (3.4-5.0) g/dL 01/01/20 Range/Units 06:35 RBC (4.50-6.00) m/cumm Hgb (13.5-17.5) g/dL Hct (40.0-50.0) % MCV (80-95) fL MCH (27.0-33.0) pg RDW (11.8-14.1) % Plt Count (130-400) x1000/uL Absolute Monocytes (0.11-0.7) k/cumm PT 14.3 H (9.3-11.0) sec INR 1.4 H (0.9-1.1) Glucose (74-106) mg/dL Magnesium (1.8-2.4) mg/dL Total Bilirubin (0.2-1.0) mg/dL Conjugated Bilirubin (0.00-0.20) mg/dL AST (15-37) U/L Ammonia (11-32) umol/L C-Reactive Protein (0.0-0.3) mg/dL Albumin (3.4-5.0) g/dL Vital Signs Temperature 99.5 F 01/01/20 15:30 Temperature Source Tympanic 01/01/20 15:30 Pulse 108 H 01/01/20 16:14 Pulse Rhythm Regular 12/24/19 08:15 Pulse 110 H 01/01/20 14:01 Respiratory Rate 23 01/01/20 16:14 Respiratory Effort Labored 01/01/20 15:30 Respiratory Depth Deep 01/01/20 15:30 Respiratory Pattern Tachypnea 01/01/20 15:30 Blood Pressure 131/69 01/01/20 15:30 Blood Pressure Mean 89 01/01/20 15:30 Blood Pressure Position Supine 01/01/20 15:30 Pulse Oximetry 92 L 01/01/20 16:14 Respiratory End-tidal CO2 22 12/29/19 21:00 Oxygen Delivery Method OxyMask 01/01/20 15:57 Oxygen Flow Rate 4 01/01/20 15:57 Fraction of Inspired Oxygen (FIO2) 4 12/30/19 11:13 Pain Level 0 01/01/20 15:30 Comment 12/25/19 07:45 Intake & Output 12/31/19 01/01/20 01/01/20 23:59 11:59 23:59 Intake Total 2299 / 4035 1631 Output Total 2455 / 3706 3252 / 3977 075 / 3977 Balance -156 / 329 -1620 / -1945 -325 / -1944 Intake: IV 2299 / 4035 1631 Output: Gastric Drainage 2 / 2 Right Nare 2 / 2 Urine 2455 / 3705 3250 / 3975 325 / 3975 Other: Urine Color Straw Light Héctor Light Héctor Urine Appearance Clear Clear Clear Comment pt has indwelling monroe cath draining clear héctor urine monroe in place and patent. monroe in place with medium héctor urine Stool Size Small Smear Stool Characteristics Soft Brown Gastric Occult Blood Right Nare Positive Laboratory Results WBC 7.58 k/cumm (4.4-10.8) 01/01/20 06:35 RBC 3.35 m/cumm (4.50-6.00) L 01/01/20 06:35 Hgb 11.6 g/dL (13.5-17.5) L 01/01/20 06:35 Hct 35.0 % (40.0-50.0) L 01/01/20 06:35 MCV 104.5 fL (80-95) H 01/01/20 06:35 MCH 34.6 pg (27.0-33.0) H 01/01/20 06:35 MCHC 33.1 g/dL (32.0-36.0) 01/01/20 06:35 RDW 14.7 % (11.8-14.1) H 01/01/20 06:35 Plt Count 90 x1000/uL (130-400) L 01/01/20 06:35 MPV 10.6 fL (8.0-11.0) 01/01/20 06:35 Immature Gran % 0.3 % 01/01/20 06:35 Neutrophils % 64.1 01/01/20 06:35 Lymphocytes % 17.4 01/01/20 06:35 Monocytes % 16.1 01/01/20 06:35 Eosinophils % 1.7 01/01/20 06:35 Basophils % 0.4 01/01/20 06:35 Absolute Neutrophils 4.86 k/cumm (1.2-6.7) 01/01/20 06:35 Absolute Lymphocytes 1.32 k/cumm (1.2-3.4) 01/01/20 06:35 Absolute Monocytes 1.22 k/cumm (0.11-0.7) H 01/01/20 06:35 Absolute Eosinophils 0.13 k/cumm (0.0-0.7) 01/01/20 06:35 Absolute Basophils 0.03 k/cumm (0.0-0.2) 01/01/20 06:35 Differential Comment Rbc morph reviewed 12/30/19 08:45 RBC Morphology See below 01/01/20 06:35 Polychromasia Present 12/30/19 08:45 Basophilic Stippling Present 12/30/19 08:45 Anisocytosis 2+ 12/30/19 08:45 Macrocytosis 1+ 01/01/20 06:35 PT 14.3 sec (9.3-11.0) H 01/01/20 06:35 INR 1.4 (0.9-1.1) H 01/01/20 06:35 ABG Sample Site Right radial 12/31/19 07:59 ABG pH 7.38 (7.35-7.45) 12/31/19 07:59 ABG pCO2 48 mmHg (34-47) H 12/31/19 07:59 ABG pO2 73 mmHg (83-108) L 12/31/19 07:59 ABG HCO3 28 mmol/L (22-28) 12/31/19 07:59 ABG Total CO2 26 mmol/L (22-29) 12/31/19 07:59 ABG O2 Saturation 95 % (94-98) 12/31/19 07:59 ABG Base Excess 3.0 mmol/L (-3-3) 12/31/19 07:59 VBG pH 7.41 (7.35-7.45) 12/30/19 09:36 VBG pCO2 42 mm/Hg (34-47) 12/30/19 09:36 VBG pO2 63 mm/Hg (28-44) H 12/30/19 09:36 VBG HCO3 27 mmol/L (22-28) 12/30/19 09:36 VBG Total CO2 24 mmol/L (22-29) 12/30/19 09:36 VBG O2 Saturation 92 % (70-80) H 12/30/19 09:36 VBG Base Excess 1.9 mmol/L (-3-3) 12/30/19 09:36 Oxygen Liter Flow 3 L 12/31/19 07:59 FiO2 Oxymask % 12/31/19 07:59 Sodium 136 mmol/L (136-145) 01/01/20 06:35 Potassium 3.6 mmol/L (3.5-5.1) 01/01/20 06:35 Chloride 102 mmol/L (98-107) 01/01/20 06:35 Carbon Dioxide 29.1 mmol/L (21.0-32.0) 01/01/20 06:35 Anion Gap 4.9 mmol/L (3-11) 01/01/20 06:35 BUN 15 mg/dL (7-18) 01/01/20 06:35 Creatinine 0.79 mg/dL (0.70-1.30) 01/01/20 06:35 Estimated GFR/1.73 m2 >= 60.00 (mL/min/1.73m2) 01/01/20 06:35 Glucose 115 mg/dL (74-106) H 01/01/20 06:35 Lactate 1.6 mmol/L (0.6-1.4) H 12/22/19 06:31 Calcium 8.8 mg/dL (8.5-10.1) 01/01/20 06:35 Phosphorus 2.8 mg/dL (2.6-4.7) 01/01/20 06:35 Magnesium 1.6 mg/dL (1.8-2.4) L 01/01/20 06:35 Total Bilirubin 2.4 mg/dL (0.2-1.0) H 01/01/20 06:35 Conjugated Bilirubin 1.25 mg/dL (0.00-0.20) H 01/01/20 06:35 AST 155 U/L (15-37) H 01/01/20 06:35 ALT 63 U/L (16-63) 01/01/20 06:35 Alkaline Phosphatase 85 U/L (46-116) 01/01/20 06:35 Ammonia 41 umol/L (11-32) H 01/01/20 06:35 Troponin I < 0.05 ng/Ml (<0.06) 12/22/19 06:31 C-Reactive Protein Cancelled 01/01/20 08:02 NT-Pro-B Natriuret Pep 49 pg/mL (<300) 12/27/19 06:10 Total Protein 6.9 g/dL (6.4-8.2) 01/01/20 06:35 Albumin 2.3 g/dL (3.4-5.0) L 01/01/20 06:35 Lipase 240 U/L (73-393) 12/21/19 19:40 Procalcitonin 0.1 ng/mL 01/01/20 06:35 Urine Color Yellow (Yellow) 12/31/19 13:50 Urine Clarity Clear (Clear) 12/31/19 13:50 Urine pH 7.0 (5-8) 12/31/19 13:50 Ur Specific [place] 1.020 (1.005-1.025) 12/31/19 13:50 Urine Protein Negative mg/dL (Negative) 12/31/19 13:50 Urine Ketones Negative mg/dL (Negative) 12/31/19 13:50 Urine Blood Moderate (Negative) H 12/31/19 13:50 Urine Nitrite Negative (Negative) 12/31/19 13:50 Urine Bilirubin Negative (Negative) 12/31/19 13:50 Urine Urobilinogen >=8.0 EU/dL (Up TO 0.2) 12/31/19 13:50 Ur Leukocyte Esterase Negative (Negative) 12/31/19 13:50 Urine RBC >50 HPF (0-2) H 12/31/19 13:50 Urine WBC 0-2 HPF (0-5) 12/31/19 13:50 Ur Epithelial Cells Rare HPF (Negative) 12/31/19 13:50 Urine Crystals Negative HPF (Negative) 12/31/19 13:50 Urine Bacteria Negative HPF (Negative) 12/31/19 13:50 Urine Casts Negative LPF (Negative) 12/31/19 13:50 Urine Mucus Negative (Negative) 12/31/19 13:50 Ur Culture Indicated? C&s done as ordered 12/31/19 13:50 Urine Glucose Negative mg/dL (Negative) 12/31/19 13:50 Vancomycin Trough 16.6 ug/mL (10.0-20.0) 12/30/19 08:45 Urine Opiates Screen Negative (Negative) 12/21/19 20:30 Urine Methadone Screen Negative (Negative) 12/21/19 20:30 Ur Barbiturates Screen Negative (Negative) 12/21/19 20:30 Ur Tricyclics Screen Negative (Negative) 12/21/19 20:30 Ur Amphetamines Screen Negative (Negative) 12/21/19 20:30 U Benzodiazepines Scrn Negative (Negative) 12/21/19 20:30 Urine Cocaine Screen Negative (Negative) 12/21/19 20:30 Ur THC Screen Negative (Negative) 12/21/19 20:30 Ethyl Alcohol 226.1 mg/dL (<3) 12/22/19 06:31 Coronavirus (PCR) Not detected 12/21/19 22:58 L.pneumophila Antibody Negative (Negative) 12/21/19 23:35 Urine Legionella Ag Negative (Negative) 12/22/19 08:00 M. pneumoniae Source Cancelled 12/21/19 23:47 M. pneumoniae (PCR) Cancelled 12/21/19 23:47 Ur Strep pneumoniae Ag Negative (Negative) 12/22/19 08:00
--- NOTE | 2020-01-01 16:56 | PCNE_ITS ---
Date of service: 01/01/20 Time of Service: 12:56 History of Present Illness Narrative: Kapil is a 54-year-old male with a long history of alcoholism. He was brought to [facility] due to nausea and vomiting. Found to have pneumonia. Has ruled out for Covid due to his history of alcoholism was given high doses of benzodiazepine. He has been off these now for several days. Unfortunately he still remains obtunded. He does not respond to pain. Voices. He does do grimacing. They are attempting tube feedings when possible. His mother wants everything done for her son. She wants him to be a full code. Dr. Vargas asked that I see Kapil and talk with his mother. Unfortunately I have tried several times to contact his mother and I keep getting the same phone message that she cannot be reached at this time. I have tried from different phones. Consults Consult date: 01/01/20 Requesting physician: Samantha Vargas Assessment and Plan Assessment and plan (1) Acute metabolic encephalopathy: Status: Acute (2) Left lower lobe pneumonia: Status: Acute Qualifiers: Pneumonia type: due to unspecified organism Qualified Code(s): J18.9 - Pneumonia, unspecified organism (3) Cirrhosis of liver: Status: Acute Qualifiers: Ascites presence: without ascites Hepatic cirrhosis type: alcoholic cir rhosis Qualified Code(s): K70.30 - Alcoholic cirrhosis of liver without ascites (4) Alcohol withdrawal delirium, acute, hyperactive: Status: Resolved (5) Hepatitis C: Status: Chronic Qualifiers: Hepatic coma status: without hepatic coma Viral hepatitis chronicity: chronic Qualified Code(s): B18.2 - Chronic viral hepatitis C (6) Alcoholic: Status: Chronic (7) Palliative care patient: Status: Acute Assessment and plan: I have read. Please note, he first came in the hospital until present. He is not appropriately responding to the lack of benzodiazepines etc. He remains obtunded. Although his pupils were equal, he did not respond to loud voice or sternal rub. I have called his mother from different phones and on several occasions and unfortunately her message is that she is not available and to try back later. I will continue to try. Certainly from the way he is responding, or more appropriately not responding to benzodiazepine withdrawal, I am concerned that there is significant brain yajaira ge. His CT scan of his head does show widespread atrophy. Based on his lack of response to benzodiazepine, and his known cerebral atrophy, as well as his alcoholism, I am uncertain if it is in his best interest to continue such aggressive care. I would like to discuss his CODE STATUS with his mother. Again I will continue to try. ADDENDUM: I had the wrong number. I called [phone] and did reach Shivani. We discussed Wing's present condition and whether he would want to continue as he is. She stated that his brain was not right from years of alcohol and drugs drugs drugs She understood about changing his CODE STATUS from full code and wants to speak with brother, Rivera Brand and employer Ron. She will call the ICU whenshe decides. I will call her in a while if we don't hear back from her. Review of Systems Narrative: Patient is obtunded and not able to answer any question. He does not respond to loud voice, or my exam [facility] Medical History (Updated 01/01/20 @ 17:01 by Billie Kim MD, [place]) Alcoholic (Chronic) Cirrhosis of liver (Acute) Erectile dysfunction (Chronic) Hepatitis C (Chronic) Hx of drug abuse (Chronic) Left inguinal hernia (Chronic) Right inguinal hernia (Chronic) Surgical History Repair of inguinal hernia (Chronic) left 1997 Social History Smoking/Tobacco Use Status: Current-Occasional Tobacco Type: cigarettes Alcohol Intake: current Alcohol Intake frequency: 3 or more drinks per day Alcohol type: hard liquor Drug use: Never Do you feel safe at home: Yes Exam Narrative Exam Narrative: He is lying in bed. He does not respond to my loud voice nor sternal rub. His vitals are presently stable. His heart is regular, but in the high end of normal. His lungs little cooperation I can hear rales in different lung ramirez. Bowel sounds present. He does not respond to any deep palpation. He does not have any edema in his legs. Results Last Vital Signs Temp 99.5 F 01/01/20 15:30 Pulse 108 H 01/01/20 16:14 Resp 23 01/01/20 16:14 BP 131/69 01/01/20 15:30 Pulse Ox 92 L 01/01/20 16:14 Labs Result diagrams: 01/02/20 06:25 01/02/20 06:25 Labs: Laboratory Results - last 24 hr 01/01/20 01/01/20 01/01/20 05:30 06:35 06:35 WBC RBC Hgb Hct MCV MCH MCHC RDW Plt Count MPV Immature Gran % Neutrophils % Lymphocytes % Monocytes % Eosinophils % Basophils % Absolute Neutrophils Absolute Lymphocytes Absolute Monocytes Absolute Eosinophils Absolute Basophils RBC Morphology Macrocytosis PT Cancelled INR Cancelled Sodium 136 Potassium 3.6 Chloride 102 Carbon Dioxide 29.1 Anion Gap 4.9 BUN 15 Creatinine 0.79 Estimated GFR/1.73 m2 >= 60.00 Glucose 115 H Calcium 8.8 Phosphorus Magnesium 1.6 L Total Bilirubin 2.4 H Conjugated Bilirubin 1.25 H AST 155 H ALT 63 Alkaline Phosphatase 85 Ammonia 41 H C-Reactive Protein 5.73 H Total Protein 6.9 Albumin 2.3 L Procalcitonin 01/01/20 01/01/20 01/01/20 06:35 06:35 06:35 WBC 7.58 RBC 3.35 L Hgb 11.6 L Hct 35.0 L MCV 104.5 H MCH 34.6 H MCHC 33.1 RDW 14.7 H Plt Count 90 L MPV 10.6 Immature Gran % 0.3 Neutrophils % 64.1 Lymphocytes % 17.4 Monocytes % 16.1 Eosinophils % 1.7 Basophils % 0.4 Absolute Neutrophils 4.86 Absolute Lymphocytes 1.32 Absolute Monocytes 1.22 H Absolute Eosinophils 0.13 Absolute Basophils 0.03 RBC Morphology See below Macrocytosis 1+ PT 14.3 H INR 1.4 H Sodium Potassium Chloride Carbon Dioxide Anion Gap BUN Creatinine Estimated GFR/1.73 m2 Glucose Calcium Phosphorus 2.8 Magnesium Total Bilirubin Conjugated Bilirubin AST ALT Alkaline Phosphatase Ammonia C-Reactive Protein Total Protein Albumin Procalcitonin 01/01/20 01/01/20 06:35 08:02 WBC RBC Hgb Hct MCV MCH MCHC RDW Plt Count MPV Immature Gran % Neutrophils % Lymphocytes % Monocytes % Eosinophils % Basophils % Absolute Neutrophils Absolute Lymphocytes Absolute Monocytes Absolute Eosinophils Absolute Basophils RBC Morphology Macrocytosis PT INR Sodium Potassium Chloride Carbon Dioxide Anion Gap BUN Creatinine Estimated GFR/1.73 m2 Glucose Calcium Phosphorus Magnesium Total Bilirubin Conjugated Bilirubin AST ALT Alkaline Phosphatase Ammonia C-Reactive Protein Cancelled Total Protein Albumin Procalcitonin 0.1
[2020-01-02] VITALS (17 sets, daily range): BP systolic 120–140; BP diastolic 61–74; PULSE 103–111; RESP 5–20; TEMP 36.6–36.9; O2SAT 89–95
--- NOTE | 2020-01-02 | DI.RAD_ITS ---
EXAM: XR PORTABLE CHEST AP CLINICAL HISTORY: <worsening hypoxia> TECHNIQUE: 2D digital imaging was performed. COMPARISON: XR PORTABLE CHEST AP POST LINE from 12/30/2019 XR PORTABLE CHEST AP from 12/31/2019 XR PORTABLE CHEST AP from 01/01/2020 FINDINGS: LUNGS: Been no significant change in bibasilar densities when compared with the previous exam. No ne w abnormalities are identified. HEART: Normal. MEDIASTINUM: Normal. OTHER FINDINGS: A nasogastric tube is unchanged in position in the stomach. A PICC line is also unch anged extending via the left arm. IMPRESSION: Stable bibasilar radiodensities. DATA REPOSITORY: RADIATION DOSE DELIVERED:
[2020-01-02] MEDS: methylPREDNISolone SUCC 125 MG VIAL 60 MG IVP (02:24)
[2020-01-02] MEDS: Normal Saline Flush 10 ML SYR IVP ×5 (02:25→19:15)
[2020-01-02] MEDS: Albuterol/Ipratropium 3 ML UPD VIAL UPD ×2 (04:01→07:48)
--- NOTE | 2020-01-02 05:44 | NUR.NOTE ---
Nursing Note: Next of kin (mother) called for an update on tori, This nurse, ISAMAR Calvo spoke with Tori's mother about his condition thought out the night. Tori's mother reported to this nurse that the Dr did not make contact with her yesterday, this nurse confirmed that statement in MD palliative care note. Phone number of Rosalie was then confirmed by this nurse. This nurse will continue to monitor the patient and report concerns from Rosalie regarding communication to on coming shift.
[2020-01-02 06:53] LABS: Abs Immature Grans 0.02 k/cumm (0.0-0.09); Absolute Basophil Count 0.01 k/cumm (0.0-0.2); Absolute Lymphocyte Count 0.62 k/cumm (1.2-3.4); Absolute Monocyte Count 0.42 k/cumm (0.11-0.7); Absolute Neutrophil Count 7.43 k/cumm (1.2-6.7); Basophils % 0.1; HCT 35.9 % (40.0-50.0); HGB 11.9 g/dL (13.5-17.5); Immature Grans % 0.2 %; Lymphocytes % 7.3; Mean Corp. HGB Concentration 33.1 g/dL (32.0-36.0); Mean Corpuscular Hemoglobin 34.8 pg (27.0-33.0); Mean Platelet Volume 10.5 fL (8.0-11.0); Monocytes % 4.9; Neutrophils % 87.5; Platelet Count 121 x1000/uL (130-400); RBC 3.42 m/cumm (4.50-6.00); RBC Distribution Width 14.4 % (11.8-14.1)
[2020-01-02 07:18] LABS: Ammonia 43 umol/L (11-32)
[2020-01-02 07:22] LABS: ALT 72 U/L (16-63); AST 133 U/L (15-37); Albumin 2.4 g/dL (3.4-5.0); Alkaline Phosphatase 118 U/L (46-116); Anion Gap 5.3 mmol/L (3-11); BUN 21 mg/dL (7-18); Bilirubin, Direct 0.94 mg/dL (0.00-0.20); Bilirubin, Total 1.8 mg/dL (0.2-1.0); CO2 29.7 mmol/L (21.0-32.0); CREATININE 0.84 mg/dL (0.70-1.30); Calcium 9.3 mg/dL (8.5-10.1); Chloride 105 mmol/L (98-107); Glucose 225 mg/dL (74-106); Magnesium 2.1 mg/dL (1.8-2.4); Potassium 4.3 mmol/L (3.5-5.1); Sodium 140 mmol/L (136-145); Total Protein 7.6 g/dL (6.4-8.2)
[2020-01-02 07:24] LABS: PHOSPHORUS 3.2 mg/dL (2.6-4.7)
[2020-01-02] MEDS: Budesonide/Formoterol 160/4.5 6 GM 60 PUFF INH IH (08:07)
[2020-01-02] MEDS: Furosemide 20 MG/2 ML VIAL IVP (08:29)
[2020-01-02] MEDS: Nystatin POWDER 60 GM JAR TP ×3 (08:30→21:54)
[2020-01-02] MEDS: Pantoprazole 40 MG VIAL IVP (08:30)
[2020-01-02] MEDS: Lactulose 20 GM/30 ML CUP NG (08:31)
[2020-01-02] MEDS: Rifaximin 550 MG TAB NG (08:31)
[2020-01-02] MEDS: Thiamine 100 MG TAB NG (08:31)
[2020-01-02] MEDS: PIPERACILLIN/TAZO 4.5 GM in Normal Saline 100 ML IVPB (08:31)
[2020-01-02] MEDS: Magnesium Oxide 400 MG TAB NG (08:31)
[2020-01-02] MEDS: Normal Saline Flush 10 ML SYR 20 ML IVP (08:33)
[2020-01-02 10:16] LABS: Vancomycin, Trough 21.8 ug/mL (10.0-20.0)
--- NOTE | 2020-01-02 11:35 | PDOC.CMPRO ---
Care Management Progress Note S/O: Lucho was changed to M/S status and [employer] status after a conversation between Dr. Kim and Kapil's mother was able to take place this morning. Dr. Kim reports Kapil is now a DNR/DNI and will be kept comfortable. Anticipate he may possibly transfer to the M/S floor, when possible. CM will continue to follow. A:Lucho is a 54 year old male admitted to [facility] 12/21/19 for pneumonia and ETOH withdrawal. P: Kapil remains at [facility] for comfort care. CM will continue to provide support to patient and family and coordinate discharge needs.
--- NOTE | 2020-01-02 11:52 | PHA.ADMREV ---
Pharmacy Clinical Review - Admission Clinical Review (Last Updated 12/25/19 @ 11:55 by Nura Shore) Palliative care patient (Acute) Ground glass opacity present on imaging of lung (Acute) Discharge planning issues (Acute) Superficial thrombophlebitis of right upper extremity (Acute) Nutrition deficiency due to insufficient food (Acute) Acute metabolic encephalopathy (Acute) Left lower lobe pneumonia (Acute) Hyperkalemia (Acute) Cirrhosis of liver (Acute) Liver failure (Acute) DVT prophylaxis (Acute) Acquired pancytopenia (Acute) Multifocal lung consolidation (Acute) Lactic acidosis (Acute) Abdominal pain (Acute) Community acquired pneumonia (Acute) No Known Allergies Allergy (Unverified 12/22/19 03:13) Height 1.85 m Weight 84.9 kg - Renal Dosing Renal Dosing: BUN 21 mg/dL (7-18) H D 01/02/20 06:25 Creatinine 0.84 mg/dL (0.70-1.30) 01/02/20 06:25 - Anticoagulation Anticoagulation: Hgb 11.9 g/dL (13.5-17.5) L 01/02/20 06:25 Hct 35.9 % (40.0-50.0) L 01/02/20 06:25 Plt Count 121 x1000/uL (130-400) L 01/02/20 06:25 INR 1.4 (0.9-1.1) H 01/01/20 06:35 Creatinine 0.84 mg/dL (0.70-1.30) 01/02/20 06:25 - Relevant Labs Sodium 140 mmol/L (136-145) 01/02/20 06:25 Potassium 4.3 mmol/L (3.5-5.1) 01/02/20 06:25 Chloride 105 mmol/L (98-107) 01/02/20 06:25 Phosphorus 3.2 mg/dL (2.6-4.7) 01/02/20 06:25 Magnesium 2.1 mg/dL (1.8-2.4) 01/02/20 06:25 C-Reactive Protein Cancelled 01/01/20 08:02 - DM Control DM Control: Glucose 225 mg/dL (74-106) H D 01/02/20 06:25 - Heart Failure/[place] Heart Failure/[place]: Troponin I < 0.05 ng/Ml (<0.06) 12/22/19 06:31 NT-Pro-B Natriuret Pep 49 pg/mL (<300) 12/27/19 06:10 - BP Control BP Control: Blood Pressure 128/62 Blood Pressure 140/74 Blood Pressure 123/68 Blood Pressure 126/62 Blood Pressure 134/61 Blood Pressure 120/62
--- NOTE | 2020-01-02 13:26 | W.PM.PROGNOT ---
Date of Service Date of service: 01/02/20 Time of Service: 13:27 Assessment and Plan Assessment and plan (1) Palliative care patient: Start date: 01/02/20 Start time: 14:26 Status: Acute Assessment and plan: Seen by Dr. Mckinney, patient is not waking up as hoped. Discussion with family decision was made to make CONDENSER TUBE TENDER (2) End of life care: Status: Acute Assessment and plan: Has not recovered from alcohol withdrawal despite stopping benzos. Will make comfort measure due to poor prognosis (3) Comfort measures only status: Start date: 01/02/20 Start time: 14:28 Status: Acute Assessment and plan: Appears comfortable at this time. morphine for pain, scopalomine for secretions. Continue to make comfortable. NG tube dcd for comfort on oxygen for comfort. above case discussed with Dr. Brewer who is in agreement. Subjective Subjective Interval history since last seen: Mr. Francois was made CONDENSER TUBE TENDER after lengthy discussion by palliative care and family. He does not appear to be recovering from his alcohol withdrawal, he continues to be obtunded He is being [place] of [place] [facility] [place] appears comfortable at this time. Exam Narrative Exam Narrative: Mr. Francois is lying in bed on oxygen, obtunded, he will open his eyes but does not respond. He appears comfortable. Generalized edema. Johnson draining dark urine. CONDENSER TUBE TENDER at this time. Objective Objective Clinical Data: Abnormal lab results 01/02/20 01/02/20 01/02/20 Range/Units 06:25 06:25 06:40 RBC 3.42 L (4.50-6.00) m/cumm Hgb 11.9 L (13.5-17.5) g/dL Hct 35.9 L (40.0-50.0) % MCV 105.0 H (80-95) fL MCH 34.8 H (27.0-33.0) pg RDW 14.4 H (11.8-14.1) % Plt Count 121 L (130-400) x1000/uL Absolute Neutrophils 7.43 H (1.2-6.7) k/cumm Absolute Lymphocytes 0.62 L (1.2-3.4) k/cumm BUN 21 H D (7-18) mg/dL Glucose 225 H D (74-106) mg/dL Total Bilirubin 1.8 H (0.2-1.0) mg/dL Conjugated Bilirubin 0.94 H (0.00-0.20) mg/dL AST 133 H (15-37) U/L ALT 72 H (16-63) U/L Alkaline Phosphatase 118 H (46-116) U/L Ammonia 43 H (11-32) umol/L Albumin 2.4 L (3.4-5.0) g/dL Vancomycin Trough (10.0-20.0) ug/mL 01/02/20 Range/Units 08:56 RBC (4.50-6.00) m/cumm Hgb (13.5-17.5) g/dL Hct (40.0-50.0) % MCV (80-95) fL MCH (27.0-33.0) pg RDW (11.8-14.1) % Plt Count (130-400) x1000/uL Absolute Neutrophils (1.2-6.7) k/cumm Absolute Lymphocytes (1.2-3.4) k/cumm BUN (7-18) mg/dL Glucose (74-106) mg/dL Total Bilirubin (0.2-1.0) mg/dL Conjugated Bilirubin (0.00-0.20) mg/dL AST (15-37) U/L ALT (16-63) U/L Alkaline Phosphatase (46-116) U/L Ammonia (11-32) umol/L Albumin (3.4-5.0) g/dL Vancomycin Trough 21.8 H* (10.0-20.0) ug/mL Vital Signs Temperature 36.9 C 01/02/20 08:35 Temperature Source Temporal Artery Scan 01/02/20 08:35 Pulse 106 H 01/02/20 08:00 Pulse Rhythm Regular 12/24/19 08:15 Pulse 105 H 01/02/20 08:00 Respiratory Rate 14 01/02/20 08:00 Respiratory Effort 01/02/20 08:35 Respiratory Depth Shallow 01/02/20 08:35 Respiratory Pattern Normal 01/02/20 08:35 Blood Pressure 128/62 01/02/20 08:00 Blood Pressure Mean 76 01/02/20 08:00 Blood Pressure Position Right Lateral 01/01/20 23:47 Pulse Oximetry 90 L 01/02/20 08:35 Respiratory End-tidal CO2 22 12/29/19 21:00 Oxygen Delivery Method OxyMask 01/02/20 08:35 Oxygen Flow Rate 7 01/02/20 08:35 Fraction of Inspired Oxygen (FIO2) 4 12/30/19 11:13 Pain Level 0 01/01/20 23:47 Comment 12/25/19 07:45 Intake & Output 01/01/20 01/02/20 01/02/20 23:59 11:59 23:59 Intake Total 750 / 2382 375 / 375 Output Total 2024 1125 / 1125 Balance -1275 / -2895 -750 / -750 Intake: IV 750 / 2382 375 / 375 Output: Gastric Drainage 0 / 0 Right Nare 0 / 0 Urine 2024 112 / 112 Output, Residual 0 / 0 Other: Urine Color Straw Light Veronica Urine Appearance Clear Clear Comment Johnson in place, patent and draining clear urine. Johnson in place, patent and draining clear urine. Stool Occult Blood Negative Stool Size Moderate Moderate Stool Characteristics Soft Liquid Laboratory Results WBC 8.50 k/cumm (4.4-10.8) 01/02/20 06:25 RBC 3.42 m/cumm (4.50-6.00) L 01/02/20 06:25 Hgb 11.9 g/dL (13.5-17.5) L 01/02/20 06:25 Hct 35.9 % (40.0-50.0) L 01/02/20 06:25 MCV 105.0 fL (80-95) H 01/02/20 06:25 MCH 34.8 pg (27.0-33.0) H 01/02/20 06:25 MCHC 33.1 g/dL (32.0-36.0) 01/02/20 06:25 RDW 14.4 % (11.8-14.1) H 01/02/20 06:25 Plt Count 121 x1000/uL (130-400) L 01/02/20 06:25 MPV 10.5 fL (8.0-11.0) 01/02/20 06:25 Immature Gran % 0.2 % 01/02/20 06:25 Neutrophils % 87.5 01/02/20 06:25 Lymphocytes % 7.3 01/02/20 06:25 Monocytes % 4.9 01/02/20 06:25 Eosinophils % 0.0 01/02/20 06:25 Basophils % 0.1 01/02/20 06:25 Absolute Neutrophils 7.43 k/cumm (1.2-6.7) H 01/02/20 06:25 Absolute Lymphocytes 0.62 k/cumm (1.2-3.4) L 01/02/20 06:25 Absolute Monocytes 0.42 k/cumm (0.11-0.7) 01/02/20 06:25 Absolute Eosinophils 0.00 k/cumm (0.0-0.7) 01/02/20 06:25 Absolute Basophils 0.01 k/cumm (0.0-0.2) 01/02/20 06:25 Differential Comment Rbc morph reviewed 12/30/19 08:45 RBC Morphology See below 01/01/20 06:35 Polychromasia Present 12/30/19 08:45 Basophilic Stippling Present 12/30/19 08:45 Anisocytosis 2+ 12/30/19 08:45 Macrocytosis 1+ 01/01/20 06:35 PT 14.3 sec (9.3-11.0) H 01/01/20 06:35 INR 1.4 (0.9-1.1) H 01/01/20 06:35 ABG Sample Site Right radial 12/31/19 07:59 ABG pH 7.38 (7.35-7.45) 12/31/19 07:59 ABG pCO2 48 mmHg (34-47) H 12/31/19 07:59 ABG pO2 73 mmHg (83-108) L 12/31/19 07:59 ABG HCO3 28 mmol/L (22-28) 12/31/19 07:59 ABG Total CO2 26 mmol/L (22-29) 12/31/19 07:59 ABG O2 Saturation 95 % (94-98) 12/31/19 07:59 ABG Base Excess 3.0 mmol/L (-3-3) 12/31/19 07:59 VBG pH 7.41 (7.35-7.45) 12/30/19 09:36 VBG pCO2 42 mm/Hg (34-47) 12/30/19 09:36 VBG pO2 63 mm/Hg (28-44) H 12/30/19 09:36 VBG HCO3 27 mmol/L (22-28) 12/30/19 09:36 VBG Total CO2 24 mmol/L (22-29) 12/30/19 09:36 VBG O2 Saturation 92 % (70-80) H 12/30/19 09:36 VBG Base Excess 1.9 mmol/L (-3-3) 12/30/19 09:36 Oxygen Liter Flow 3 L 12/31/19 07:59 FiO2 Oxymask % 12/31/19 07:59 Sodium 140 mmol/L (136-145) 01/02/20 06:25 Potassium 4.3 mmol/L (3.5-5.1) 01/02/20 06:25 Chloride 105 mmol/L (98-107) 01/02/20 06:25 Carbon Dioxide 29.7 mmol/L (21.0-32.0) 01/02/20 06:25 Anion Gap 5.3 mmol/L (3-11) 01/02/20 06:25 BUN 21 mg/dL (7-18) H D 01/02/20 06:25 Creatinine 0.84 mg/dL (0.70-1.30) 01/02/20 06:25 Estimated GFR/1.73 m2 >= 60.00 (mL/min/1.73m2) 01/02/20 06:25 Glucose 225 mg/dL (74-106) H D 01/02/20 06:25 Lactate 1.6 mmol/L (0.6-1.4) H 12/22/19 06:31 Calcium 9.3 mg/dL (8.5-10.1) 01/02/20 06:25 Phosphorus 3.2 mg/dL (2.6-4.7) 01/02/20 06:25 Magnesium 2.1 mg/dL (1.8-2.4) 01/02/20 06:25 Total Bilirubin 1.8 mg/dL (0.2-1.0) H 01/02/20 06:25 Conjugated Bilirubin 0.94 mg/dL (0.00-0.20) H 01/02/20 06:25 AST 133 U/L (15-37) H 01/02/20 06:25 ALT 72 U/L (16-63) H 01/02/20 06:25 Alkaline Phosphatase 118 U/L (46-116) H 01/02/20 06:25 Ammonia 43 umol/L (11-32) H 01/02/20 06:40 Troponin I < 0.05 ng/Ml (<0.06) 12/22/19 06:31 C-Reactive Protein Cancelled 01/01/20 08:02 NT-Pro-B Natriuret Pep 49 pg/mL (<300) 12/27/19 06:10 Total Protein 7.6 g/dL (6.4-8.2) 01/02/20 06:25 Albumin 2.4 g/dL (3.4-5.0) L 01/02/20 06:25 Lipase 240 U/L (73-393) 12/21/19 19:40 Procalcitonin 0.1 ng/mL 01/01/20 06:35 Urine Color Yellow (Yellow) 12/31/19 13:50 Urine Clarity Clear (Clear) 12/31/19 13:50 Urine pH 7.0 (5-8) 12/31/19 13:50 Ur Specific [place] 1.020 (1.005-1.025) 12/31/19 13:50 Urine Protein Negative mg/dL (Negative) 12/31/19 13:50 Urine Ketones Negative mg/dL (Negative) 12/31/19 13:50 Urine Blood Moderate (Negative) H 12/31/19 13:50 Urine Nitrite Negative (Negative) 12/31/19 13:50 Urine Bilirubin Negative (Negative) 12/31/19 13:50 Urine Urobilinogen >=8.0 EU/dL (Up TO 0.2) 12/31/19 13:50 Ur Leukocyte Esterase Negative (Negative) 12/31/19 13:50 Urine RBC >50 HPF (0-2) H 12/31/19 13:50 Urine WBC 0-2 HPF (0-5) 12/31/19 13:50 Ur Epithelial Cells Rare HPF (Negative) 12/31/19 13:50 Urine Crystals Negative HPF (Negative) 12/31/19 13:50 Urine Bacteria Negative HPF (Negative) 12/31/19 13:50 Urine Casts Negative LPF (Negative) 12/31/19 13:50 Urine Mucus Negative (Negative) 12/31/19 13:50 Ur Culture Indicated? C&s done as ordered 12/31/19 13:50 Urine Glucose Negative mg/dL (Negative) 12/31/19 13:50 Vancomycin Trough 21.8 ug/mL (10.0-20.0) H* 01/02/20 08:56 Urine Opiates Screen Negative (Negative) 12/21/19 20:30 Urine Methadone Screen Negative (Negative) 12/21/19 20:30 Ur Barbiturates Screen Negative (Negative) 12/21/19 20:30 Ur Tricyclics Screen Negative (Negative) 12/21/19 20:30 Ur Amphetamines Screen Negative (Negative) 12/21/19 20:30 U Benzodiazepines Scrn Negative (Negative) 12/21/19 20:30 Urine Cocaine Screen Negative (Negative) 12/21/19 20:30 Ur THC Screen Negative (Negative) 12/21/19 20:30 Ethyl Alcohol 226.1 mg/dL (<3) 12/22/19 06:31 Coronavirus (PCR) Not detected 12/21/19 22:58 L.pneumophila Antibody Negative (Negative) 12/21/19 23:35 Urine Legionella Ag Negative (Negative) 12/22/19 08:00 M. pneumoniae Source Cancelled 12/21/19 23:47 M. pneumoniae (PCR) Cancelled 12/21/19 23:47 Ur Strep pneumoniae Ag Negative (Negative) 12/22/19 08:00
--- NOTE | 2020-01-02 13:48 | CHAPLAIN ---
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 Kim's conversation with Kapil's mom, Shivani. Kapil's eyes are open, and he looks and sounds as if he's trying to say something, but it comes out as mumbling. I will continue to visit. No family members or friends have been in to visit.
--- NOTE | 2020-01-02 15:17 | W.PALPGNOTE ---
Date of service: 01/02/20 Time of Service: 12:20 Assessment and Plan Assessment and plan (1) Comfort measures only status: Status: Acute (2) End of life care: Status: Acute Assessment and plan: I had spoken with Kapil's mother Shivani on 2 occasions. This morning she wanted to talk with several friends and relatives to determine next steps. She had called Rivera Vadim Velasquez and Kapil's father. They all agreed that Shivani was making the right decision to transfer for him to DNR/DNI, comfort care. I spoke to Shivani for quite some time about the fact that Kapil has not really woken up from his time on the ventilator. She asked me specifically if he was brain and I said that I could not ascertain that but he was not responding as we expected. I did call her after seeing Kapil. He was significantly more calm than he was yesterday just having all of the different paraphernalia in the ICU taken off. Shivani also stated that she wanted to see him one last time. I recommended that she go to the that she call the ICU and talk with him about having that arranged. I have spoken with Dr. Pacheco and at this point he is DNR/DNI comfort measures only. Shivani his mom asked me on several occasions about his dying. She has the expectation that it will happen soon. I will continue to see Kapil. Shivani has asked me to update her daily. This document was created by [employer] software. Content was screened for mispellings, grammatical mistakes, etc. I apologize for any problems, but please contact me for further clarification if needed. I have spent more than 50% of time in counseling with this patient. Subjective Subjective Interval history since last seen: Over the last 24 hours nursing reports that Kapil continues to be agitated. They have not given him any medication. He has not been responsive to touch. His vitals have remained stable. He has not spoken or shown awareness. Exam Narrative Exam Narrative: He is lying in the ICU bed. He presently is more calm than what I saw him yesterday (I had spoken to his mother and she did want comfort care instituted) he no longer has blood pressure cuff telemetry etc. HEENT the right pupil is smaller than the left pupil. He does not respond to sternal rub. His heart is regular but difficult to hear. His lungs rhonchorous with aeration in all lobes but no cooperation regarding breathing. He does have elbow protection on both elbows. Palliative Performance Scale % Ambulation Activity and Evidence of Disease Self-Care Intake Level of Consciousness 100 Full Normal activity, no evidence of disease Full Normal Full 90 Full Normal activity, some evidence of disease Full Normal Full 80 Full Normal activity with effort, some evidence of disease Full Normal or reduced Full 70 Reduced Unable to do normal work, some evidence of disease Full Normal or reduced Full 60 Reduced Unable to do hobby or some housework, significant disease Occasional assist necessary Normal or reduced Full or confusion 50 Mainly sit/lie Unable to do any work, extensive disease Considerable assistance required Normal or reduced Full or confusion 40 Mainly in bed Unable to do any work, extensive disease Mainly assistance Normal or reduced Full, drowsy, or confusion 30 Totally bed bound Unable to do any work, extensive disease Total care Reduced Full, drowsy, or confusion 20 Totally bed bound Unable to do any work, extensive disease Total care Minimal sips Full, drowsy, or confusion 10 Totally bed bound Unable to do any work, extensive disease Total care Mouth care only Drowsy or coma 0 _ _ _ _ Patient Score: 10% Objective Objective Clinical Data: Abnormal lab results 01/02/20 01/02/20 01/02/20 Range/Units 06:25 06:25 06:40 RBC 3.42 L (4.50-6.00) m/cumm Hgb 11.9 L (13.5-17.5) g/dL Hct 35.9 L (40.0-50.0) % MCV 105.0 H (80-95) fL MCH 34.8 H (27.0-33.0) pg RDW 14.4 H (11.8-14.1) % Plt Count 121 L (130-400) x1000/uL Absolute Neutrophils 7.43 H (1.2-6.7) k/cumm Absolute Lymphocytes 0.62 L (1.2-3.4) k/cumm BUN 21 H D (7-18) mg/dL Glucose 225 H D (74-106) mg/dL Total Bilirubin 1.8 H (0.2-1.0) mg/dL Conjugated Bilirubin 0.94 H (0.00-0.20) mg/dL AST 133 H (15-37) U/L ALT 72 H (16-63) U/L Alkaline Phosphatase 118 H (46-116) U/L Ammonia 43 H (11-32) umol/L Albumin 2.4 L (3.4-5.0) g/dL Vancomycin Trough (10.0-20.0) ug/mL 01/02/20 Range/Units 08:56 RBC (4.50-6.00) m/cumm Hgb (13.5-17.5) g/dL Hct (40.0-50.0) % MCV (80-95) fL MCH (27.0-33.0) pg RDW (11.8-14.1) % Plt Count (130-400) x1000/uL Absolute Neutrophils (1.2-6.7) k/cumm Absolute Lymphocytes (1.2-3.4) k/cumm BUN (7-18) mg/dL Glucose (74-106) mg/dL Total Bilirubin (0.2-1.0) mg/dL Conjugated Bilirubin (0.00-0.20) mg/dL AST (15-37) U/L ALT (16-63) U/L Alkaline Phosphatase (46-116) U/L Ammonia (11-32) umol/L Albumin (3.4-5.0) g/dL Vancomycin Trough 21.8 H* (10.0-20.0) ug/mL Vital Signs Temperature 98.4 F 01/02/20 08:35 Temperature Source Temporal Artery Scan 01/02/20 08:35 Pulse 106 H 01/02/20 08:00 Pulse Rhythm Regular 12/24/19 08:15 Pulse 105 H 01/02/20 08:00 Respiratory Rate 14 01/02/20 08:00 Respiratory Effort 01/02/20 13:58 Respiratory Depth Normal 01/02/20 13:58 Respiratory Pattern Normal 01/02/20 13:58 Blood Pressure 128/62 01/02/20 08:00 Blood Pressure Mean 76 01/02/20 08:00 Blood Pressure Position Right Lateral 01/01/20 23:47 Pulse Oximetry 90 L 01/02/20 08:35 Respiratory End-tidal CO2 22 12/29/19 21:00 Oxygen Delivery Method OxyMask 01/02/20 08:35 Oxygen Flow Rate 7 01/02/20 08:35 Fraction of Inspired Oxygen (FIO2) 4 12/30/19 11:13 Pain Level 0 01/01/20 23:47 Comment 12/25/19 07:45 Intake & Output 01/01/20 01/02/20 01/02/20 23:59 11:59 23:59 Intake Total 750 / 2382 375 / 375 Output Total 2024 1125 / 1125 Balance -1275 / -2895 -750 / -750 Intake: IV 750 / 2382 375 / 375 Output: Gastric Drainage 0 / 0 Right Nare 0 / 0 Urine 2024 1125 / 1125 Output, Residual 0 / 0 Other: Urine Color Straw Light Veronica Urine Appearance Clear Clear Clear Comment Johnson in place, patent and draining clear urine. Johnson in place, patent and draining clear urine. Stool Occult Blood Negative Stool Size Moderate Moderate Stool Characteristics Soft Liquid Laboratory Results WBC 8.50 k/cumm (4.4-10.8) 01/02/20 06:25 RBC 3.42 m/cumm (4.50-6.00) L 01/02/20 06:25 Hgb 11.9 g/dL (13.5-17.5) L 01/02/20 06:25 Hct 35.9 % (40.0-50.0) L 01/02/20 06:25 MCV 105.0 fL (80-95) H 01/02/20 06:25 MCH 34.8 pg (27.0-33.0) H 01/02/20 06:25 MCHC 33.1 g/dL (32.0-36.0) 01/02/20 06:25 RDW 14.4 % (11.8-14.1) H 01/02/20 06:25 Plt Count 121 x1000/uL (130-400) L 01/02/20 06:25 MPV 10.5 fL (8.0-11.0) 01/02/20 06:25 Immature Gran % 0.2 % 01/02/20 06:25 Neutrophils % 87.5 01/02/20 06:25 Lymphocytes % 7.3 01/02/20 06:25 Monocytes % 4.9 01/02/20 06:25 Eosinophils % 0.0 01/02/20 06:25 Basophils % 0.1 01/02/20 06:25 Absolute Neutrophils 7.43 k/cumm (1.2-6.7) H 01/02/20 06:25 Absolute Lymphocytes 0.62 k/cumm (1.2-3.4) L 01/02/20 06:25 Absolute Monocytes 0.42 k/cumm (0.11-0.7) 01/02/20 06:25 Absolute Eosinophils 0.00 k/cumm (0.0-0.7) 01/02/20 06:25 Absolute Basophils 0.01 k/cumm (0.0-0.2) 01/02/20 06:25 Differential Comment Rbc morph reviewed 12/30/19 08:45 RBC Morphology See below 01/01/20 06:35 Polychromasia Present 12/30/19 08:45 Basophilic Stippling Present 12/30/19 08:45 Anisocytosis 2+ 12/30/19 08:45 Macrocytosis 1+ 01/01/20 06:35 PT 14.3 sec (9.3-11.0) H 01/01/20 06:35 INR 1.4 (0.9-1.1) H 01/01/20 06:35 ABG Sample Site Right radial 12/31/19 07:59 ABG pH 7.38 (7.35-7.45) 12/31/19 07:59 ABG pCO2 48 mmHg (34-47) H 12/31/19 07:59 ABG pO2 73 mmHg (83-108) L 12/31/19 07:59 ABG HCO3 28 mmol/L (22-28) 12/31/19 07:59 ABG Total CO2 26 mmol/L (22-29) 12/31/19 07:59 ABG O2 Saturation 95 % (94-98) 12/31/19 07:59 ABG Base Excess 3.0 mmol/L (-3-3) 12/31/19 07:59 VBG pH 7.41 (7.35-7.45) 12/30/19 09:36 VBG pCO2 42 mm/Hg (34-47) 12/30/19 09:36 VBG pO2 63 mm/Hg (28-44) H 12/30/19 09:36 VBG HCO3 27 mmol/L (22-28) 12/30/19 09:36 VBG Total CO2 24 mmol/L (22-29) 12/30/19 09:36 VBG O2 Saturation 92 % (70-80) H 12/30/19 09:36 VBG Base Excess 1.9 mmol/L (-3-3) 12/30/19 09:36 Oxygen Liter Flow 3 L 12/31/19 07:59 FiO2 Oxymask % 12/31/19 07:59 Sodium 140 mmol/L (136-145) 01/02/20 06:25 Potassium 4.3 mmol/L (3.5-5.1) 01/02/20 06:25 Chloride 105 mmol/L (98-107) 01/02/20 06:25 Carbon Dioxide 29.7 mmol/L (21.0-32.0) 01/02/20 06:25 Anion Gap 5.3 mmol/L (3-11) 01/02/20 06:25 BUN 21 mg/dL (7-18) H D 01/02/20 06:25 Creatinine 0.84 mg/dL (0.70-1.30) 01/02/20 06:25 Estimated GFR/1.73 m2 >= 60.00 (mL/min/1.73m2) 01/02/20 06:25 Glucose 225 mg/dL (74-106) H D 01/02/20 06:25 Lactate 1.6 mmol/L (0.6-1.4) H 12/22/19 06:31 Calcium 9.3 mg/dL (8.5-10.1) 01/02/20 06:25 Phosphorus 3.2 mg/dL (2.6-4.7) 01/02/20 06:25 Magnesium 2.1 mg/dL (1.8-2.4) 01/02/20 06:25 Total Bilirubin 1.8 mg/dL (0.2-1.0) H 01/02/20 06:25 Conjugated Bilirubin 0.94 mg/dL (0.00-0.20) H 01/02/20 06:25 AST 133 U/L (15-37) H 01/02/20 06:25 ALT 72 U/L (16-63) H 01/02/20 06:25 Alkaline Phosphatase 118 U/L (46-116) H 01/02/20 06:25 Ammonia 43 umol/L (11-32) H 01/02/20 06:40 Troponin I < 0.05 ng/Ml (<0.06) 12/22/19 06:31 C-Reactive Protein Cancelled 01/01/20 08:02 NT-Pro-B Natriuret Pep 49 pg/mL (<300) 12/27/19 06:10 Total Protein 7.6 g/dL (6.4-8.2) 01/02/20 06:25 Albumin 2.4 g/dL (3.4-5.0) L 01/02/20 06:25 Lipase 240 U/L (73-393) 12/21/19 19:40 Procalcitonin 0.1 ng/mL 01/01/20 06:35 Urine Color Yellow (Yellow) 12/31/19 13:50 Urine Clarity Clear (Clear) 12/31/19 13:50 Urine pH 7.0 (5-8) 12/31/19 13:50 Ur Specific [place] 1.020 (1.005-1.025) 12/31/19 13:50 Urine Protein Negative mg/dL (Negative) 12/31/19 13:50 Urine Ketones Negative mg/dL (Negative) 12/31/19 13:50 Urine Blood Moderate (Negative) H 12/31/19 13:50 Urine Nitrite Negative (Negative) 12/31/19 13:50 Urine Bilirubin Negative (Negative) 12/31/19 13:50 Urine Urobilinogen >=8.0 EU/dL (Up TO 0.2) 12/31/19 13:50 Ur Leukocyte Esterase Negative (Negative) 12/31/19 13:50 Urine RBC >50 HPF (0-2) H 12/31/19 13:50 Urine WBC 0-2 HPF (0-5) 12/31/19 13:50 Ur Epithelial Cells Rare HPF (Negative) 12/31/19 13:50 Urine Crystals Negative HPF (Negative) 12/31/19 13:50 Urine Bacteria Negative HPF (Negative) 12/31/19 13:50 Urine Casts Negative LPF (Negative) 12/31/19 13:50 Urine Mucus Negative (Negative) 12/31/19 13:50 Ur Culture Indicated? C&s done as ordered 12/31/19 13:50 Urine Glucose Negative mg/dL (Negative) 12/31/19 13:50 Vancomycin Trough 21.8 ug/mL (10.0-20.0) H* 01/02/20 08:56 Urine Opiates Screen Negative (Negative) 12/21/19 20:30 Urine Methadone Screen Negative (Negative) 12/21/19 20:30 Ur Barbiturates Screen Negative (Negative) 12/21/19 20:30 Ur Tricyclics Screen Negative (Negative) 12/21/19 20:30 Ur Amphetamines Screen Negative (Negative) 12/21/19 20:30 U Benzodiazepines Scrn Negative (Negative) 12/21/19 20:30 Urine Cocaine Screen Negative (Negative) 12/21/19 20:30 Ur THC Screen Negative (Negative) 12/21/19 20:30 Ethyl Alcohol 226.1 mg/dL (<3) 12/22/19 06:31 Coronavirus (PCR) Not detected 12/21/19 22:58 L.pneumophila Antibody Negative (Negative) 12/21/19 23:35 Urine Legionella Ag Negative (Negative) 12/22/19 08:00 M. pneumoniae Source Cancelled 12/21/19 23:47 M. pneumoniae (PCR) Cancelled 12/21/19 23:47 Ur Strep pneumoniae Ag Negative (Negative) 12/22/19 08:00
[2020-01-02] MEDS: Glycopyrrolate 0.2 MG/1 ML VIAL IVP (16:01)
[2020-01-02] MEDS: Scopolamine 1 MG/3 DAYS PATCH TD (16:02)
[2020-01-02] MEDS: Normal Saline Flush 10 ML SYR ×2 (16:03→16:27)
[2020-01-02] MEDS: LORazepam 2 MG/ML VIAL 1 MG IVP ×2 (16:26→19:14)
[2020-01-02] MEDS: MORPHine 250 MG in Normal Saline 245 ML IV (17:17)
[2020-01-03 04:12] VITALS: RESP 12
[2020-01-03] MEDS: Refresh PLUS Eye Drops 0.4ml 1 EACH OU (04:25)
--- NOTE | 2020-01-03 07:00 | W.PM.DDS ---
Date of service: 01/03/20 Time of Service: 07:00 Discharge Sum: Prov Provider Consults: 12/29/19 13:33 PICC Consult [CONS] Routine Comment: Consultation Status:: Follow-up needed Clarification:: Manage/follow per spec. Reason for consult:: insertion of PICC line for TPN 12/30/19 09:11 Surgical Consult [CONS] Routine Consulting Provider: Brionna Rivas Consultation Status:: Contact made by Clarification:: Manage/follow per spec. Reason for consult:: Blood in NGT; h/o cirrhosis/varices 12/30/19 13:49 Palliative Care Consult [CONS] Routine Consultation Status:: Follow-up needed Clarification:: Manage/follow per spec. Reason for consult:: Patient with EtOH cirrhosis, coagulopathy, thrombocytopenia, encephalopathy. H/o esophageal varices. Admitted with EtOH withdrawal, now encephalopathic. Full code. Consult to discuss goals of care Discharge Sum: Diag PCOD Cause of : Acute liver failure Contributing Factors (1) Comfort measures only status: (2) End of life care:
== END 2020-01-03 04:53 | disposition expired | DRG 207 ==
LOC: ER 23:57 → RICU 12-22 04:32 → MS 12-22 17:48 → ICU 12-24 22:25 → MS 01-02 15:01
PROVIDERS: Family Medicine; Internal Medicine; Nurse Practitioner Family; Admitting Provider Internal Medicine; Emergency Provider Emergency Medicine; PCP Nurse Practitioner; Visit Provider Internal Medicine
DX: J18.1 Lobar pneumonia, unspecified organism (principal); G92 Toxic encephalopathy; F10.231 Alcohol dependence with withdrawal delirium; D61.818 Other pancytopenia; K76.6 Portal hypertension; E72.20 Disorder of urea cycle metabolism, unspecified; I85.10 Secondary esophageal varices without bleeding; D68.9 Coagulation defect, unspecified; R45.1 Restlessness and agitation; F10.229 Alcohol dependence with intoxication, unspecified; Y90.8 Blood alcohol level of 240 mg/100 ml or more; R10.84 Generalized abdominal pain; J69.0 Pneumonitis due to inhalation of food and vomit; Z78.1 Physical restraint status; R68.0 Hypothermia, not associated with low environmental temperature; T42.6X5A Adverse effect of other antiepileptic and sedative-hypnotic drugs, initial encounter; E87.5 Hyperkalemia; Z03.818 Encounter for observation for suspected exposure to other biological agents ruled out; T42.4X5A Adverse effect of benzodiazepines, initial encounter; T42.3X5A Adverse effect of barbiturates, initial encounter; E87.6 Hypokalemia; E83.42 Hypomagnesemia; G31.2 Degeneration of nervous system due to alcohol; R82.2 Biliuria; R04.0 Epistaxis; Z51.5 Encounter for palliative care; Z66 Do not resuscitate; B18.2 Chronic viral hepatitis C; K70.30 Alcoholic cirrhosis of liver without ascites; K72.90 Hepatic failure, unspecified without coma; I80.8 Phlebitis and thrombophlebitis of other sites; E63.8 Other specified nutritional deficiencies; F17.210 Nicotine dependence, cigarettes, uncomplicated
CPT/HCPCS: 36415; 36569; 36591; 71045; 71275; 74177; 80048; 80053; 80076; 80307; 82805; 83690; 84145; 85027; 86713; 87040; 87449; 93005; 94640; 96361; 96365; 96366; 96367; 96368; 96375; 99223; 99231; 99232; 99233; 99238; 99253; 99255; 99285; 99291; J1650; U0003; 36600; 70450; 71260; 76700; 80202; 80320; 81003; 81015; 82140; 82247; 83605; 83735; 83880; 84100; 84132; 84484; 85014; 85018; 85025; 85610; 86140; 87070; 87086; 87205; 87450; 87581; 93010; 93971; 94002; 94003; J0295; J1941; J2060; J2543; J2560; J2930; J3360; J3370; J3430; J3475; J3480; J3490; J7613; J7620